=== PATIENT | male | born 1950 | race African-American/Black ===

== ENCOUNTER 2018-10-10 10:22 | Inpatient (IN) | payer MEDICARE, MEDICAID ==
[~2018-10-10] VITALS: Ht 170.2 cm; Wt 83.6 kg
[~2018-10-10 10:22] MED LIST: ASPI-1159 PO; BUDE6HFA INH; CARV25TA47 PO; HYDR-4135 PO
[2018-10-10 11:00] LABS: BASOPHILS % 0.8 % (0.0-2.0); EOSINOPHILS % 1.1 % (0.0-5.0); HEMATOCRIT. 48.5 % (42.0-52.0); LYMPHOCYTES % 13.2 % (20.0-50.0); MEAN CORPUSCULAR HEMOGLOBIN 30.3 pg (28.0-32.0); MEAN CORPUSCULAR VOLUME 91.7 fL (80.0-94.0); MONOCYTES % 8.1 % (2.0-8.0); NEUTROPHILS % 76.8 % (40.0-76.0); PLATELET 199 x1000/uL (130-400); RED BLOOD CELL COUNT 5.29 mill/uL (4.7-6.1); RED CELL DISTRIBUTION WIDTH 18.2 % (11.6-14.6)
[2018-10-10] MEDS ORDERED: ASPIRIN 325MG EC TABLET PO ONE (11:00)
[2018-10-10 11:01] LABS: CHLORIDE 110 mEq/L (98-107)
[2018-10-10 14:30] VITALS: BP 181/101
[2018-10-10] MEDS ORDERED: ENOXAPARIN 60MG/0.6ML SYR SUBCUT NR (14:30)
[2018-10-10] MEDS ORDERED: IPRATROPIUM/ALBUTEROL 0.5-3(2.5)MG/3ML NEB HHN PRN (15:30)
[2018-10-10] MEDS ORDERED: CLONIDINE 0.1MG TABLET PO PRN (15:30)
[2018-10-10 16:00] VITALS: BP 158/97
[2018-10-10] MEDS ORDERED: ONDANSETRON HCL 4MG/2ML INJ IV PRN (17:45)
[2018-10-10] MEDS ORDERED: MAGNESIUM/ALUMINUM HYDROXIDE/SIMETHICONE 30ML UDC PO PRN (17:45)
[2018-10-10] MEDS ORDERED: SODIUM CHLORIDE 0.45% 1,000 ML IV SCH (17:45)
[2018-10-10] MEDS ORDERED: HYDROCODONE/ACETAMINOPHEN 5/325MG TABLET PO PRN (17:45)
[2018-10-10] MEDS ORDERED: BUDESONIDE 0.5MG/2ML NEB HHN SCH (18:00)
[2018-10-10] MEDS ORDERED: FUROSEMIDE 40MG/4ML VIAL IVP NR (18:15)
[2018-10-10 19:03] LABS: CLARITY URINE CLEAR (CLEAR); COLOR URINE YELLOW (YELLOW); KETONES URINE NEGATIVE (NEGATIVE); LEUKOCYTE ESTERASE URINE NEGATIVE (NEGATIVE); NITRITE URINE NEGATIVE (NEGATIVE); OCCULT BLOOD URINE NEGATIVE (NEGATIVE); PROTEIN URINE TRACE (NEGATIVE); SPECIFIC GRAVITY URINE 1.009 (1.005-1.030); UROBILINOGEN URINE 0.2 E.U./dL (0.2-1.0)
[2018-10-10 19:23] LABS: *AMPHETAMINES SCREEN URINE NEGATIVE (NEGATIVE); *BARBITURATES SCREEN URINE NEGATIVE (NEGATIVE); *BENZODIAZEPINES SCREEN URINE NEGATIVE (NEGATIVE); *COCAINE SCREEN URINE NEGATIVE (NEGATIVE)
[2018-10-10 19:24] LABS: CANNABINOID URINE SCREEN NEGATIVE (NEGATIVE); METHADONE URINE SCREEN NEGATIVE (NEGATIVE); OPIATES URINE SCREEN NEGATIVE (NEGATIVE); PHENCYCLIDINE URINE SCREEN NEGATIVE (NEGATIVE)
[2018-10-10 20:00] VITALS: BP 151/92
[2018-10-10] MEDS: CARVEDILOL 12.5MG TABLET PO SCH (21:00)
[2018-10-10] MEDS ORDERED: ZOLPIDEM TARTRATE 5MG TABLET PO PRN (21:00)
[2018-10-10] MEDS: HYDRALAZINE HCL 50MG TABLET PO SCH (21:39)
[2018-10-10] MEDS: ATORVASTATIN CALCIUM 40MG TABLET PO SCH (21:43)
[2018-10-11] VITALS: BP 143/79
[2018-10-11 04:00] VITALS: BP 140/86
[2018-10-11 06:21] LABS: BASOPHILS % 0.9 % (0.0-2.0); EOSINOPHILS % 2.3 % (0.0-5.0); HEMATOCRIT. 44.5 % (42.0-52.0); LYMPHOCYTES % 19.1 % (20.0-50.0); MEAN CORPUSCULAR HEMOGLOBIN 30.6 pg (28.0-32.0); MEAN CORPUSCULAR VOLUME 90.8 fL (80.0-94.0); MEAN PLATELET VOLUME 9.5 fl (7.4-10.4); MONOCYTES % 9.6 % (2.0-8.0); NEUTROPHILS % 68.1 % (40.0-76.0); PLATELET 169 x1000/uL (130-400); RED CELL DISTRIBUTION WIDTH 18.5 % (11.6-14.6)
[2018-10-11] MEDS: OMEPRAZOLE 20MG CAPSULE EXTENDED RELEASE PO SCH (06:43)
[2018-10-11] MEDS: HYDRALAZINE HCL 50MG TABLET PO SCH ×3 (06:44→21:32)
[2018-10-11 07:26] LABS: PHOSPHORUS 3.3 mg/dL (2.5-4.9)
[2018-10-11 08:00] VITALS: BP 143/82
[2018-10-11] MEDS: ASPIRIN 81MG EC TABLET PO SCH (09:18)
[2018-10-11] MEDS: CARVEDILOL 12.5MG TABLET PO SCH (09:18)
[2018-10-11] MEDS ORDERED: FUROSEMIDE 40MG/4ML VIAL IVP NR (11:30)
[2018-10-11 12:00] VITALS: BP 140/80
[2018-10-11] MEDS: AMLODIPINE 5MG TABLET PO SCH ×2 (14:20→21:31)
[2018-10-11 16:00] VITALS: BP 157/88
[2018-10-11 20:00] VITALS: BP 151/73
[2018-10-11] MEDS: CARVEDILOL 25MG TABLET PO SCH (21:31)
[2018-10-11] MEDS: ATORVASTATIN CALCIUM 40MG TABLET PO SCH (21:31)
[2018-10-12] VITALS (7 sets, daily range): BP systolic 127–152; BP diastolic 67–86
[2018-10-12] MEDS: IPRATROPIUM/ALBUTEROL 0.5-3(2.5)MG/3ML NEB HHN SCH ×4 (01:56→21:44)
[2018-10-12] MEDS: OMEPRAZOLE 20MG CAPSULE EXTENDED RELEASE PO SCH (05:54)
[2018-10-12] MEDS: HYDRALAZINE HCL 50MG TABLET PO SCH ×3 (05:54→21:55)
[2018-10-12 06:30] LABS: BASOPHILS % 0.9 % (0.0-2.0); EOSINOPHILS % 2.7 % (0.0-5.0); HEMATOCRIT. 45.4 % (42.0-52.0); HEMOGLOBIN. 15.4 g/dL (14.0-18.0); LYMPHOCYTES % 21.5 % (20.0-50.0); MEAN CORPUSCULAR HEMOGLOBIN 30.9 pg (28.0-32.0); MEAN CORPUSCULAR VOLUME 91.3 fL (80.0-94.0); MEAN PLATELET VOLUME 9.8 fl (7.4-10.4); MONOCYTES % 9.4 % (2.0-8.0); NEUTROPHILS % 65.5 % (40.0-76.0); PLATELET 187 x1000/uL (130-400); RED BLOOD CELL COUNT 4.98 mill/uL (4.7-6.1); RED CELL DISTRIBUTION WIDTH 18.3 % (11.6-14.6)
[2018-10-12] MEDS: BUDESONIDE 0.5MG/2ML NEB HHN SCH ×2 (08:00→21:45)
[2018-10-12] MEDS: ASPIRIN 81MG EC TABLET PO SCH (08:18)
[2018-10-12] MEDS: CARVEDILOL 25MG TABLET PO SCH ×2 (08:20→21:55)
[2018-10-12] MEDS: AMLODIPINE 5MG TABLET PO SCH ×2 (08:20→21:56)
[2018-10-12] MEDS: NICOTINE 14MG PATCH TD SCH (08:20)
[2018-10-12] MEDS ORDERED: FUROSEMIDE 40MG TABLET PO SCH (11:15)
[2018-10-12 12:35] LABS: PARTIAL THROMBOPLASTIN TIME 31.4 sec (23.4-31.0); PROTHROMBIN TIME 10.7 sec (9.6-11.0)
[2018-10-12] MEDS ORDERED: FUROSEMIDE 20MG/2ML VIAL IVP NR (14:15)
[2018-10-12 15:10] LABS: ANTI-NUCLEAR ANTIBODIES DIRECT Negative (Negative)
[2018-10-12] MEDS: ATORVASTATIN CALCIUM 40MG TABLET PO SCH (21:55)
[2018-10-13] VITALS: BP 115/70
[2018-10-13] MEDS: IPRATROPIUM/ALBUTEROL 0.5-3(2.5)MG/3ML NEB HHN SCH ×4 (01:08→21:39)
[2018-10-13 04:00] VITALS: BP 125/82
[2018-10-13] MEDS: OMEPRAZOLE 20MG CAPSULE EXTENDED RELEASE PO SCH (05:54)
[2018-10-13] MEDS: HYDRALAZINE HCL 50MG TABLET PO SCH ×3 (05:55→21:04)
[2018-10-13 06:18] LABS: BASOPHILS % 1.1 % (0.0-2.0); HEMOGLOBIN. 16.2 g/dL (14.0-18.0); MEAN CORPUSCULAR HEMOGLOBIN 30.8 pg (28.0-32.0); MEAN CORPUSCULAR VOLUME 89.7 fL (80.0-94.0); MEAN PLATELET VOLUME 9.4 fl (7.4-10.4); MONOCYTES % 9.3 % (2.0-8.0); NEUTROPHILS % 67.6 % (40.0-76.0); PLATELET 198 x1000/uL (130-400); RED BLOOD CELL COUNT 5.24 mill/uL (4.7-6.1); RED CELL DISTRIBUTION WIDTH 18.2 % (11.6-14.6)
[2018-10-13] MEDS ORDERED: PROPOFOL 200MG/20ML VIAL IV ONE (07:23)
[2018-10-13] MEDS ORDERED: MIDAZOLAM HCL 2 MG/2 ML VIAL ONE (07:23)
[2018-10-13] MEDS ORDERED: KETAMINE HCL 50 MG/ML 10ML ONE (07:24)
[2018-10-13] MEDS ORDERED: IOPAMIDOL 20 ML VIAL IT ONE (07:26)
[2018-10-13] MEDS ORDERED: FENTANYL CITRATE/PF 50MCG/ML 2ML VIAL ONE (07:31)
[2018-10-13] MEDS ORDERED: ONDANSETRON HCL 4MG/2ML INJ IV PRN (08:15)
[2018-10-13] MEDS ORDERED: LABETALOL 5MG/ML SYR 20 MG/4 ML SYRINGE IV PRN (08:15)
[2018-10-13] MEDS ORDERED: ACETAMINOPHEN 500MG TABLET PO PRN (08:15)
[2018-10-13] MEDS: BUDESONIDE 0.5MG/2ML NEB HHN SCH ×2 (08:20→21:39)
[2018-10-13 08:21] LABS: COMPLEMENT C3 142 mg/dL (82-167)
[2018-10-13 09:00] VITALS: BP 154/86
[2018-10-13] MEDS: FAMOTIDINE 20MG TABLET PO SCH (09:36)
[2018-10-13] MEDS: NICOTINE 14MG PATCH TD SCH (09:36)
[2018-10-13] MEDS: ACETAMINOPHEN 325MG TABLET PO PRN ×2 (09:37→15:40)
[2018-10-13] MEDS: AMLODIPINE 5MG TABLET PO SCH ×2 (09:37→21:05)
[2018-10-13] MEDS: CARVEDILOL 25MG TABLET PO SCH ×2 (09:45→21:04)
[2018-10-13 12:00] VITALS: BP 140/86
[2018-10-13 16:00] VITALS: BP 153/80
[2018-10-13 20:00] VITALS: BP 146/76
[2018-10-13] MEDS: ATORVASTATIN CALCIUM 40MG TABLET PO SCH (21:05)
[2018-10-14] VITALS: BP 134/81
[2018-10-14] MEDS: IPRATROPIUM/ALBUTEROL 0.5-3(2.5)MG/3ML NEB HHN SCH ×3 (01:16→12:42)
[2018-10-14 04:00] VITALS: BP 133/73
[2018-10-14] MEDS: OMEPRAZOLE 20MG CAPSULE EXTENDED RELEASE PO SCH (06:00)
[2018-10-14] MEDS: HYDRALAZINE HCL 50MG TABLET PO SCH ×2 (06:01→14:02)
[2018-10-14 06:07] LABS: BASOPHILS % 0.8 % (0.0-2.0); EOSINOPHILS % 2.2 % (0.0-5.0); HEMATOCRIT. 50.3 % (42.0-52.0); HEMOGLOBIN. 17.1 g/dL (14.0-18.0); LYMPHOCYTES % 17.7 % (20.0-50.0); MEAN CORPUSCULAR HEMOGLOBIN 30.7 pg (28.0-32.0); MEAN CORPUSCULAR VOLUME 90.5 fL (80.0-94.0); MEAN PLATELET VOLUME 9.1 fl (7.4-10.4); MONOCYTES % 8.8 % (2.0-8.0); NEUTROPHILS % 70.5 % (40.0-76.0); PLATELET 218 x1000/uL (130-400); RED BLOOD CELL COUNT 5.55 mill/uL (4.7-6.1)
[2018-10-14 08:00] VITALS: BP 162/93
[2018-10-14] MEDS: AMLODIPINE 5MG TABLET PO SCH (08:34)
[2018-10-14] MEDS: CARVEDILOL 25MG TABLET PO SCH (08:34)
[2018-10-14] MEDS: NICOTINE 14MG PATCH TD SCH (08:34)
[2018-10-14] MEDS: FAMOTIDINE 20MG TABLET PO SCH (08:34)
[2018-10-14 12:00] VITALS: BP 161/91
[2018-10-14 15:51] VITALS: BP 148/90
== END 2018-10-14 16:50 | disposition home or self-care (01) | DRG 659 ==
LOC: ER 10:22 → 5WST 12:41 → EDBEDREQ 12:44 → EDBEDREQTM 12:44 → ENRESERV 12:59
PROVIDERS: ADMIT Family Medicine Adult Medicine; ATTEND Specialist
PROC: 0T778DZ Dilation of Left Ureter with Intraluminal Device, Via Natural or Artificial Opening Endoscopic (ICD-10-PCS; principal; 2018-10-13)
DX: N13.30 Unspecified hydronephrosis (principal); J96.00 Acute respiratory failure, unspecified whether with hypoxia or hypercapnia; I50.43 Acute on chronic combined systolic (congestive) and diastolic (congestive) heart failure; I13.0 Hypertensive heart and chronic kidney disease with heart failure and stage 1 through stage 4 chronic kidney disease, or unspecified chronic kidney disease; R17 Unspecified jaundice; N28.0 Ischemia and infarction of kidney; N17.9 Acute kidney failure, unspecified; J06.9 Acute upper respiratory infection, unspecified; J44.9 Chronic obstructive pulmonary disease, unspecified; N18.9 Chronic kidney disease, unspecified; D64.9 Anemia, unspecified; E11.22 Type 2 diabetes mellitus with diabetic chronic kidney disease; E78.5 Hyperlipidemia, unspecified; F17.210 Nicotine dependence, cigarettes, uncomplicated; I25.10 Atherosclerotic heart disease of native coronary artery without angina pectoris; I25.5 Ischemic cardiomyopathy; I25.119 Atherosclerotic heart disease of native coronary artery with unspecified angina pectoris; I27.20 Pulmonary hypertension, unspecified; Z96.659 Presence of unspecified artificial knee joint; I34.0 Nonrheumatic mitral (valve) insufficiency; N26.1 Atrophy of kidney (terminal); N40.0 Benign prostatic hyperplasia without lower urinary tract symptoms; Z82.49 Family history of ischemic heart disease and other diseases of the circulatory system; Z86.79 Personal history of other diseases of the circulatory system; Z95.1 Presence of aortocoronary bypass graft; I25.2 Old myocardial infarction; Z79.899 Other long term (current) drug therapy; Z71.6 Tobacco abuse counseling
CPT/HCPCS: 36415; 71045; 71250; 74430; 76770; 78582; 80048; 80061; 80305; 83036; 83735; 83880; 84100; 84443; 84484; 85379; 86038; 86160; 93005; 93306; 93970; 94618; 94640; 99285; A9558; C2617; J1650; J1940; J2250; J2704; J3010; J3490; J7620; J7626; Q9966

== ENCOUNTER 2019-02-21 10:35 | Inpatient (IN) | payer MEDICARE, MEDICAID ==
[~2019-02-21] VITALS: Ht 167.1 cm; Wt 85.0 kg
[2019-02-21] VITALS (24 sets, daily range): BP systolic 128–174; BP diastolic 54–109
[~2019-02-21 10:35] MED LIST changes: -ASPI-1159 PO; +ASPI-1393 PO
[2019-02-21] MEDS ORDERED: THROMBIN (BOVINE) 5000 UNITS/VIAL TOP ONE (11:58)
[2019-02-21 12:16] LABS: BASOPHILS % 0.7 % (0.0-2.0); EOSINOPHILS % 2.2 % (0.0-5.0); HEMATOCRIT. 53.4 % (42.0-52.0); HEMOGLOBIN. 17.8 g/dL (14.0-18.0); LYMPHOCYTES % 19.7 % (20.0-50.0); MEAN CORPUSCULAR HEMOGLOBIN 31.6 pg (28.0-32.0); MEAN CORPUSCULAR VOLUME 94.6 fL (80.0-94.0); MONOCYTES % 7.8 % (2.0-8.0); NEUTROPHILS % 69.6 % (40.0-76.0); PLATELET 182 x1000/uL (130-400); RED BLOOD CELL COUNT 5.65 mill/uL (4.7-6.1); RED CELL DISTRIBUTION WIDTH 16.7 % (11.6-14.6)
[2019-02-21] MEDS ORDERED: AMLO5TAB88 MT (12:20)
[2019-02-21] MEDS ORDERED: ATOR40TA70 MT (12:20)
[2019-02-21] MEDS ORDERED: LOSA50TA41 MT (12:20)
[2019-02-21 12:26] LABS: INR 1.1; PROTHROMBIN TIME 10.9 sec (9.6-11.0)
[2019-02-21] MEDS ORDERED: PROPOFOL 10MG/ML 100ML 200 ML IV ONE (12:37)
[2019-02-21] MEDS ORDERED: IOHEXOL-300 100 ML BOTTLE ONE (12:41)
[2019-02-21] MEDS ORDERED: HEPARIN 1,000 UNITS PREMIX 1,500 ML IV ONE (12:42)
[2019-02-21] MEDS ORDERED: LIDOCAINE HCL 1% 20ML VIAL (Pyxis) INJ ONE (12:42)
[2019-02-21] MEDS ORDERED: IODIXANOL 320MG/ML 100 ML BOTTLE IV ONE (12:42)
[2019-02-21] MEDS ORDERED: FENTANYL CITRATE/PF 50MCG/ML 2ML VIAL ONE (12:50)
[2019-02-21] MEDS ORDERED: MIDAZOLAM HCL 2 MG/2 ML VIAL ONE ×2 (12:51→17:45)
[2019-02-21] MEDS ORDERED: IODIXANOL 320MG/ML 200ML BOTTLE ONE (13:13)
[2019-02-21] MEDS ORDERED: GLYCOPYRROLATE 0.2 MG/ML 2ML VIAL ONE ×2 (13:28→17:55)
[2019-02-21] MEDS ORDERED: KETAMINE HCL 50 MG/ML 10ML ONE (13:42)
[2019-02-21] MEDS ORDERED: HYDRALAZINE 20MG/ML VIAL ONE (14:44)
[2019-02-21] MEDS ORDERED: HEPARIN 1000 UNITS/ML 10ML ONE ×2 (14:44→15:09)
[2019-02-21] MEDS ORDERED: ROCURONIUM BROMIDE 10MG/ML VIAL 5ML IV ONE ×2 (15:56→16:47)
[2019-02-21] MEDS ORDERED: MEPERIDINE HCL/PF 25MG/ML CPJ IV PRN ×2 (16:15)
[2019-02-21] MEDS ORDERED: LABETALOL 5MG/ML SYR 20 MG/4 ML SYRINGE IV PRN (16:15)
[2019-02-21] MEDS ORDERED: ONDANSETRON HCL 4MG/2ML INJ IV PRN ×3 (16:15→18:15)
[2019-02-21] MEDS ORDERED: LABETALOL HCL 5MG/ML VIAL 20ML IV PRN (16:15)
[2019-02-21] MEDS ORDERED: HYDROMORPHONE HCL/PF 2MG/ML CPJ IV PRN ×2 (16:15)
[2019-02-21] MEDS ORDERED: PROTAMINE SULFATE 10MG/ML VIAL 5ML IV ONE (17:39)
[2019-02-21] MEDS ORDERED: NEOSTIGMINE METHYLSULFATE 1MG/ML 10 ML VIAL ONE (17:55)
[2019-02-21] MEDS ORDERED: ATROPINE SULFATE 1MG/10ML SYR IV PRN (18:15)
[2019-02-21 18:48] LABS: BG BASE EXCESS -7.2 mmol/L (-2.0-2.0); BG CARBOXYHEMOGLOBIN 3.7 % (0.5-1.5); BG DEOXYHEMOGLOBIN 4.4 % (0.0-5.0); BG FRACTION INSPIRED OXYGEN 100; BG HCO3 ACT 19.8 mmol/L (22.0-26.0); BG METHEMOGLOBIN 0.4 % (0.0-1.5); BG OXYGEN SATURATION 95.4 % (92.0-98.5); BG OXYHEMOGLOBIN 91.5 % (94.0-97.0); BG PH 7.261 (7.350-7.450); BG SAMPLE SITE RIGHT RADIAL; BG TIDAL VOLUME(mL) 500 mL; BG TOTAL HEMOGLOBIN 17.2 g/dL (12.0-18.0); BG VENT MODE VENT - A/C; BG VENT RATE 14 set
[2019-02-21] MEDS: LORAZEPAM 2MG/ML CPJ IV PRN (19:11)
[2019-02-21] MEDS ORDERED: SODIUM BICARBONATE 8.4% 1 MEQ/ML 50ML SYR IV SCH (19:15)
[2019-02-21] MEDS ORDERED: IPRATROPIUM/ALBUTEROL 0.5-3(2.5)MG/3ML NEB HHN PRN (19:15)
[2019-02-21] MEDS: IPRATROPIUM/ALBUTEROL 0.5-3(2.5)MG/3ML NEB HHN SCH (20:03)
[2019-02-21] MEDS: SODIUM CHLORIDE 0.9% 1,000 ML IV SCH (20:50)
[2019-02-21] MEDS: FENTANYL CITRATE/PF 500 MCG in SODIUM CHLORIDE 0.9% 40 ML IV PRN ×2 (20:51→23:35)
[2019-02-22] VITALS (46 sets, daily range): BP systolic 84–190; BP diastolic 60–102
[2019-02-22] MEDS: IPRATROPIUM/ALBUTEROL 0.5-3(2.5)MG/3ML NEB HHN SCH ×4 (01:48→20:33)
[2019-02-22] MEDS: SODIUM CHLORIDE 0.9% 1,000 ML IV SCH (04:44)
[2019-02-22] MEDS: FENTANYL CITRATE/PF 500 MCG in SODIUM CHLORIDE 0.9% 40 ML IV PRN (04:45)
[2019-02-22 05:41] LABS: BASOPHILS % 0.4 % (0.0-2.0); EOSINOPHILS % 0.2 % (0.0-5.0); HEMATOCRIT. 46.9 % (42.0-52.0); HEMOGLOBIN. 15.7 g/dL (14.0-18.0); LYMPHOCYTES % 8.9 % (20.0-50.0); MEAN CORPUSCULAR HEMOGLOBIN 31.8 pg (28.0-32.0); MEAN CORPUSCULAR VOLUME 94.9 fL (80.0-94.0); MEAN PLATELET VOLUME 8.7 fl (7.4-10.4); MONOCYTES % 8.5 % (2.0-8.0); PLATELET 139 x1000/uL (130-400); RED BLOOD CELL COUNT 4.94 mill/uL (4.7-6.1); RED CELL DISTRIBUTION WIDTH 16.8 % (11.6-14.6)
[2019-02-22 05:48] LABS: CHLORIDE 112 mEq/L (98-107)
[2019-02-22] MEDS ORDERED: HYDRALAZINE 20MG/ML VIAL IV NR (07:15)
[2019-02-22] MEDS ORDERED: ASPIRIN 325MG TABLET PO SCH (09:00)
[2019-02-22] MEDS ORDERED: LABETALOL 5MG/ML SYR 20 MG/4 ML SYRINGE IV PRN (09:45)
[2019-02-22] MEDS: LORAZEPAM 2MG/ML CPJ IV PRN (10:02)
[2019-02-22 10:27] LABS: BG BASE EXCESS -4.1 mmol/L (-2.0-2.0); BG CARBOXYHEMOGLOBIN 0.7 % (0.5-1.5); BG DEOXYHEMOGLOBIN 1.9 % (0.0-5.0); BG FRACTION INSPIRED OXYGEN 60; BG HCO3 ACT 20.3 mmol/L (22.0-26.0); BG METHEMOGLOBIN 0.4 % (0.0-1.5); BG OXYGEN SATURATION 98.1 % (92.0-98.5); BG PCO2 35.7 mmHg (35.0-45.0); BG PH 7.373 (7.350-7.450); BG PO2 109.7 mmHg (75.0-100.0); BG SAMPLE SITE RIGHT RADIAL; BG TIDAL VOLUME(mL) 500 mL; BG TOTAL HEMOGLOBIN 16.5 g/dL (12.0-18.0); BG VENT MODE VENT - A/C; BG VENT RATE 18 set
[2019-02-22] MEDS ORDERED: MAGNESIUM 2 G PREMIX 50 ML IV NR (10:45)
[2019-02-22] MEDS ORDERED: HYDRALAZINE 20MG/ML VIAL IV SCH (12:00)
[2019-02-22] MEDS ORDERED: MORPHINE SULFATE 2 MG/ML CPJ (NOT FOR IM USE) IV PRN (12:45)
[2019-02-22] MEDS: MORPHINE SULFATE 2 MG/ML CPJ (NOT FOR IM USE) IV PRN ×2 (12:59→20:02)
[2019-02-22 13:19] LABS: BG CARBOXYHEMOGLOBIN 0.7 % (0.5-1.5); BG DEOXYHEMOGLOBIN 4.6 % (0.0-5.0); BG FRACTION INSPIRED OXYGEN 40; BG HCO3 ACT 20.1 mmol/L (22.0-26.0); BG METHEMOGLOBIN 0.3 % (0.0-1.5); BG OXYGEN SATURATION 95.4 % (92.0-98.5); BG OXYHEMOGLOBIN 94.4 % (94.0-97.0); BG PCO2 31.2 mmHg (35.0-45.0); BG PH 7.426 (7.350-7.450); BG PO2 74.9 mmHg (75.0-100.0); BG PRESSURE SUPPORT 8; BG SAMPLE SITE RIGHT RADIAL; BG TOTAL HEMOGLOBIN 16.6 g/dL (12.0-18.0); BG VENT MODE VENT - CPAP
[2019-02-22] MEDS ORDERED: CLOPIDOGREL 75MG TABLET PO ONE (14:00)
[2019-02-22] MEDS ORDERED: ASPIRIN 81MG EC TABLET PO SCH (14:00)
[2019-02-22] MEDS: ASPIRIN 81MG TABLET PO SCH (14:22)
[2019-02-22] MEDS: NITROGLYCERIN OINT 1GM/INCH UDPKT TD SCH ×2 (15:52→23:35)
[2019-02-22] MEDS: DEXT 5%/0.45% NACL 1000ML 1,000 ML IV SCH (15:52)
[2019-02-22] MEDS: HYDRALAZINE 20MG/ML VIAL IV SCH ×2 (17:07→23:35)
[2019-02-22] MEDS: NICARDIPINE 50 MG in SODIUM CHLORIDE 0.9% 230 ML IV PRN (17:32)
[2019-02-22] MEDS ORDERED: MAGNESIUM/ALUMINUM HYDROXIDE/SIMETHICONE 30ML UDC PO PRN (20:00)
[2019-02-23] VITALS (72 sets, daily range): BP systolic 118–166; BP diastolic 42–125
[2019-02-23] MEDS: MORPHINE SULFATE 2 MG/ML CPJ (NOT FOR IM USE) IV PRN ×2 (00:05→20:05)
[2019-02-23] MEDS: NICARDIPINE 50 MG in SODIUM CHLORIDE 0.9% 230 ML IV PRN ×3 (00:11→18:08)
[2019-02-23] MEDS: IPRATROPIUM/ALBUTEROL 0.5-3(2.5)MG/3ML NEB HHN SCH ×4 (01:43→20:40)
[2019-02-23 04:24] LABS: CHLORIDE 109 mEq/L (98-107)
[2019-02-23 04:26] LABS: HEMATOCRIT. 45.6 % (42.0-52.0); HEMOGLOBIN. 15.4 g/dL (14.0-18.0); MEAN CORPUSCULAR HEMOGLOBIN 31.6 pg (28.0-32.0); MEAN CORPUSCULAR VOLUME 93.8 fL (80.0-94.0); MEAN PLATELET VOLUME 8.7 fl (7.4-10.4); PLATELET 108 x1000/uL (130-400); RED BLOOD CELL COUNT 4.87 mill/uL (4.7-6.1); RED CELL DISTRIBUTION WIDTH 16.7 % (11.6-14.6)
[2019-02-23 04:31] LABS: LDL CHOLESTEROL 69 mg/dL (5-100)
[2019-02-23 04:32] LABS: HDL CHOLESTEROL 53 mg/dL (40-59)
[2019-02-23] MEDS: HYDRALAZINE 20MG/ML VIAL IV SCH ×3 (05:11→17:46)
[2019-02-23] MEDS: NITROGLYCERIN OINT 1GM/INCH UDPKT TD SCH ×3 (05:11→22:04)
[2019-02-23 07:28] LABS: PLATELET ESTIMATE DECREASED
[2019-02-23] MEDS: SIMETHICONE 80MG TABLET CHEW PO PRN ×2 (07:45→15:40)
[2019-02-23] MEDS: DEXT 5%/0.45% NACL 1000ML 1,000 ML IV SCH (07:45)
[2019-02-23] MEDS: ACETAMINOPHEN 325MG TABLET PO PRN ×2 (07:46→15:40)
[2019-02-23] MEDS: ASPIRIN 81MG TABLET PO SCH (08:01)
[2019-02-23] MEDS ORDERED: CLOPIDOGREL 75MG TABLET PO SCH (09:00)
[2019-02-23] MEDS ORDERED: METHYLPREDNISOLONE SOD SUCC 125 MG/2 ML VIAL IV NR (10:00)
[2019-02-23] MEDS: DEXT 5%/0.45% NACL KCL 20MEQ/L 1,000 ML IV SCH (11:43)
[2019-02-23] MEDS: METOCLOPRAMIDE HCL 10MG/2ML VIAL IV SCH ×2 (12:21→17:46)
[2019-02-23 12:26] LABS: CLARITY URINE CLOUDY (CLEAR); COLOR URINE ORANGE (YELLOW); KETONES URINE NEGATIVE (NEGATIVE); LEUKOCYTE ESTERASE URINE 1+ (NEGATIVE); NITRITE URINE NEGATIVE (NEGATIVE); OCCULT BLOOD URINE 3+ (NEGATIVE); PH URINE 5.5 (4.5-8.0); PROTEIN URINE 2+ (NEGATIVE); SPECIFIC GRAVITY URINE 1.021 (1.005-1.030); UROBILINOGEN URINE 0.2 E.U./dL (0.2-1.0)
[2019-02-23] MEDS ORDERED: PIPERACILLIN/TAZOBACTAM 3.375 G in DEXT 5% WATER 100 ML IV SCH (12:30)
[2019-02-23] MEDS ORDERED: PIPERACILLIN/TAZOBACTAM 2.25 G in DEXTROSE 5% WATER 50 ML IV SCH (14:00)
[2019-02-23] MEDS: PANTOPRAZOLE SODIUM 40 MG/VIAL IV SCH (14:10)
[2019-02-23] MEDS: METRONIDAZOLE 500 MG PREMIX 100 ML IV SCH ×2 (14:11→22:01)
[2019-02-23] MEDS: BUDESONIDE 0.5MG/2ML NEB HHN SCH ×2 (14:59→20:40)
[2019-02-23] MEDS: METHYLPREDNISOLONE SOD SUCC 40 MG/ML VIAL IV SCH (17:46)
[2019-02-23] MEDS: LORAZEPAM 2MG/ML CPJ IV PRN (20:06)
[2019-02-23] MEDS: CEFEPIME 1,000 MG in DEXTROSE 5% WATER 50 ML IV SCH (20:36)
[2019-02-24] VITALS (82 sets, daily range): BP systolic 125–199; BP diastolic 43–109
[2019-02-24] MEDS: HYDRALAZINE 20MG/ML VIAL IV SCH ×4 (00:11→17:15)
[2019-02-24] MEDS: METOCLOPRAMIDE HCL 10MG/2ML VIAL IV SCH ×5 (00:12→23:05)
[2019-02-24] MEDS: MORPHINE SULFATE 2 MG/ML CPJ (NOT FOR IM USE) IV PRN (01:03)
[2019-02-24] MEDS: IPRATROPIUM/ALBUTEROL 0.5-3(2.5)MG/3ML NEB HHN SCH ×4 (02:34→20:16)
[2019-02-24] MEDS: METRONIDAZOLE 500 MG PREMIX 100 ML IV SCH ×3 (05:34→23:05)
[2019-02-24] MEDS: NITROGLYCERIN OINT 1GM/INCH UDPKT TD SCH ×3 (05:35→23:05)
[2019-02-24] MEDS: NICARDIPINE 50 MG in SODIUM CHLORIDE 0.9% 230 ML IV PRN ×2 (05:36→16:45)
[2019-02-24 06:18] LABS: HEMATOCRIT. 44.5 % (42.0-52.0); HEMOGLOBIN. 14.9 g/dL (14.0-18.0); MEAN CORPUSCULAR HEMOGLOBIN 31.6 pg (28.0-32.0); MEAN CORPUSCULAR VOLUME 94.3 fL (80.0-94.0); MEAN PLATELET VOLUME 9.3 fl (7.4-10.4); PLATELET 124 x1000/uL (130-400); RED BLOOD CELL COUNT 4.72 mill/uL (4.7-6.1); RED CELL DISTRIBUTION WIDTH 16.2 % (11.6-14.6)
[2019-02-24 06:23] LABS: CHLORIDE 111 mEq/L (98-107)
[2019-02-24] MEDS: DEXT 5%/0.45% NACL KCL 20MEQ/L 1,000 ML IV SCH (07:18)
[2019-02-24] MEDS: BUDESONIDE 0.5MG/2ML NEB HHN SCH ×2 (07:49→20:16)
[2019-02-24] MEDS: PANTOPRAZOLE SODIUM 40 MG/VIAL IV SCH (08:49)
[2019-02-24] MEDS: ASPIRIN 81MG TABLET PO SCH (08:49)
[2019-02-24] MEDS: CEFEPIME 1,000 MG in DEXTROSE 5% WATER 50 ML IV SCH ×2 (08:49→21:51)
[2019-02-24] MEDS: METHYLPREDNISOLONE SOD SUCC 40 MG/ML VIAL IV SCH ×2 (08:49→17:15)
[2019-02-24] MEDS ORDERED: POTASSIUM CHLORIDE 20MEQ TABLET SR PO NR (11:00)
[2019-02-24 11:28] LABS: PLATELET ESTIMATE NORMAL
[2019-02-25] VITALS (89 sets, daily range): BP systolic 121–168; BP diastolic 39–132
[2019-02-25] MEDS: HYDRALAZINE 20MG/ML VIAL IV SCH ×4 (00:36→17:24)
[2019-02-25] MEDS: DEXT 5%/0.45% NACL KCL 20MEQ/L 1,000 ML IV SCH ×2 (00:36→23:19)
[2019-02-25] MEDS: NICARDIPINE 50 MG in SODIUM CHLORIDE 0.9% 230 ML IV PRN ×3 (00:36→21:10)
[2019-02-25] MEDS: IPRATROPIUM/ALBUTEROL 0.5-3(2.5)MG/3ML NEB HHN SCH ×4 (01:55→20:41)
[2019-02-25 04:47] LABS: HEMATOCRIT. 44.9 % (42.0-52.0); HEMOGLOBIN. 15.1 g/dL (14.0-18.0); MEAN CORPUSCULAR HEMOGLOBIN 31.7 pg (28.0-32.0); MEAN CORPUSCULAR VOLUME 94.6 fL (80.0-94.0); MEAN PLATELET VOLUME 9.1 fl (7.4-10.4); PLATELET 143 x1000/uL (130-400); RED BLOOD CELL COUNT 4.75 mill/uL (4.7-6.1); RED CELL DISTRIBUTION WIDTH 16.6 % (11.6-14.6)
[2019-02-25 04:54] LABS: CHLORIDE 115 mEq/L (98-107)
[2019-02-25] MEDS: METRONIDAZOLE 500 MG PREMIX 100 ML IV SCH ×3 (05:50→21:07)
[2019-02-25] MEDS: NITROGLYCERIN OINT 1GM/INCH UDPKT TD SCH ×3 (05:51→21:26)
[2019-02-25] MEDS: METOCLOPRAMIDE HCL 10MG/2ML VIAL IV SCH ×3 (05:51→17:24)
[2019-02-25] MEDS ORDERED: POTASSIUM CHLORIDE 20MEQ TABLET SR PO SCH (08:30)
[2019-02-25] MEDS: BUDESONIDE 0.5MG/2ML NEB HHN SCH ×2 (08:53→20:40)
[2019-02-25] MEDS: CEFEPIME 1,000 MG in DEXTROSE 5% WATER 50 ML IV SCH ×2 (09:20→20:41)
[2019-02-25] MEDS: ASPIRIN 81MG TABLET PO SCH (09:21)
[2019-02-25] MEDS: PANTOPRAZOLE SODIUM 40 MG/VIAL IV SCH (09:21)
[2019-02-25] MEDS: METHYLPREDNISOLONE SOD SUCC 40 MG/ML VIAL IV SCH ×2 (09:21→17:24)
[2019-02-25 11:29] LABS: BG BASE EXCESS -2.2 mmol/L (-2.0-2.0); BG CARBOXYHEMOGLOBIN 0.7 % (0.5-1.5); BG DEOXYHEMOGLOBIN 4.8 % (0.0-5.0); BG FRACTION INSPIRED OXYGEN 70; BG HCO3 ACT 20.8 mmol/L (22.0-26.0); BG METHEMOGLOBIN 0.3 % (0.0-1.5); BG OXYGEN SATURATION 95.2 % (92.0-98.5); BG OXYHEMOGLOBIN 94.2 % (94.0-97.0); BG PCO2 31.2 mmHg (35.0-45.0); BG PH 7.441 (7.350-7.450); BG PO2 74.5 mmHg (75.0-100.0); BG SAMPLE SITE RIGHT RADIAL; BG TOTAL HEMOGLOBIN 15.5 g/dL (12.0-18.0); BG VENT MODE VAPOTHERM
[2019-02-25 12:16] LABS: PLATELET ESTIMATE NORMAL
[2019-02-26] VITALS (88 sets, daily range): BP systolic 129–160; BP diastolic 50–112
[2019-02-26] MEDS: IPRATROPIUM/ALBUTEROL 0.5-3(2.5)MG/3ML NEB HHN SCH ×4 (01:20→20:18)
[2019-02-26] MEDS: HYDRALAZINE 20MG/ML VIAL IV SCH ×2 (02:03→06:47)
[2019-02-26] MEDS: METOCLOPRAMIDE HCL 10MG/2ML VIAL IV SCH ×4 (02:03→17:18)
[2019-02-26 05:48] LABS: HEMATOCRIT. 46.3 % (42.0-52.0); HEMOGLOBIN. 15.3 g/dL (14.0-18.0); MEAN CORPUSCULAR HEMOGLOBIN 31.2 pg (28.0-32.0); MEAN CORPUSCULAR VOLUME 94.5 fL (80.0-94.0); MEAN PLATELET VOLUME 8.9 fl (7.4-10.4); PLATELET 171 x1000/uL (130-400); RED CELL DISTRIBUTION WIDTH 16.5 % (11.6-14.6)
[2019-02-26] MEDS: NICARDIPINE 50 MG in SODIUM CHLORIDE 0.9% 230 ML IV PRN ×2 (05:57→19:31)
[2019-02-26 06:18] LABS: CHLORIDE 110 mEq/L (98-107)
[2019-02-26] MEDS: NITROGLYCERIN OINT 1GM/INCH UDPKT TD SCH (06:46)
[2019-02-26] MEDS: METRONIDAZOLE 500 MG PREMIX 100 ML IV SCH ×2 (06:46→20:59)
[2019-02-26 08:17] LABS: PLATELET ESTIMATE NORMAL
[2019-02-26] MEDS: CEFEPIME 1,000 MG in DEXTROSE 5% WATER 50 ML IV SCH ×2 (08:39→20:27)
[2019-02-26] MEDS: PANTOPRAZOLE SODIUM 40 MG/VIAL IV SCH (08:39)
[2019-02-26] MEDS: METHYLPREDNISOLONE SOD SUCC 40 MG/ML VIAL IV SCH ×2 (08:39→17:18)
[2019-02-26] MEDS: ASPIRIN 81MG TABLET PO SCH (08:39)
[2019-02-26] MEDS ORDERED: DEXTROSE 50% WATER 50ML SYRINGE IV PRN (09:00)
[2019-02-26 09:12] LABS: BG BASE EXCESS -5.3 mmol/L (-2.0-2.0); BG CARBOXYHEMOGLOBIN 0.9 % (0.5-1.5); BG DEOXYHEMOGLOBIN 14.8 % (0.0-5.0); BG FRACTION INSPIRED OXYGEN 70; BG HCO3 ACT 18.6 mmol/L (22.0-26.0); BG METHEMOGLOBIN 0.3 % (0.0-1.5); BG PCO2 32.1 mmHg (35.0-45.0); BG SAMPLE SITE LEFT RADIAL; BG TOTAL HEMOGLOBIN 16.8 g/dL (12.0-18.0); BG VENT MODE VAPOTHERM
[2019-02-26] MEDS ORDERED: HYDRALAZINE 20MG/ML VIAL IV PRN (10:00)
[2019-02-26] MEDS: BUDESONIDE 0.5MG/2ML NEB HHN SCH ×2 (10:00→20:17)
[2019-02-26] MEDS: CARVEDILOL 12.5MG TABLET PO SCH ×2 (10:50→20:47)
[2019-02-26] MEDS: LOSARTAN POTASSIUM 50 MG TABLET PO SCH (10:51)
[2019-02-26] MEDS: AMLODIPINE 5MG TABLET PO SCH ×2 (10:51→20:58)
[2019-02-26 12:34] LABS: BG BILEVEL POS AIRWAY PRESSURE ST=15/5; BG CARBOXYHEMOGLOBIN 1.2 % (0.5-1.5); BG DEOXYHEMOGLOBIN 2.4 % (0.0-5.0); BG FRACTION INSPIRED OXYGEN 60; BG HCO3 ACT 21.2 mmol/L (22.0-26.0); BG METHEMOGLOBIN 0.3 % (0.0-1.5); BG OXYGEN SATURATION 97.6 % (92.0-98.5); BG OXYHEMOGLOBIN 96.1 % (94.0-97.0); BG PCO2 35.6 mmHg (35.0-45.0); BG PH 7.392 (7.350-7.450); BG PRESSURE SUPPORT 10; BG SAMPLE SITE RIGHT RADIAL; BG TOTAL HEMOGLOBIN 16.5 g/dL (12.0-18.0); BG VENT MODE MASK - BIPAP; BG VENT RATE 16 set
[2019-02-26] MEDS ORDERED: BLOOD SUGAR DIAGNOSTIC STRIP TEST SCH (12:50)
[2019-02-26] MEDS ORDERED: INSULIN LISPRO 100 UNITS/ML SUBCUT SCH (13:20)
[2019-02-26] MEDS ORDERED: IOHEXOL-350 100 ML BOTTLE ONE (14:20)
[2019-02-26] MEDS ORDERED: FUROSEMIDE 40MG/4ML VIAL IVP SCH (14:45)
[2019-02-26] MEDS: MORPHINE SULFATE 2 MG/ML CPJ (NOT FOR IM USE) IV PRN (21:19)
[2019-02-27] VITALS (77 sets, daily range): BP systolic 104–166; BP diastolic 39–101
[2019-02-27] MEDS: METOCLOPRAMIDE HCL 10MG/2ML VIAL IV SCH ×4 (00:56→17:37)
[2019-02-27] MEDS: IPRATROPIUM/ALBUTEROL 0.5-3(2.5)MG/3ML NEB HHN SCH ×4 (01:24→20:26)
[2019-02-27] MEDS: NICARDIPINE 50 MG in SODIUM CHLORIDE 0.9% 230 ML IV PRN (05:12)
[2019-02-27 05:41] LABS: HEMATOCRIT. 50.1 % (42.0-52.0); HEMOGLOBIN. 16.6 g/dL (14.0-18.0); MEAN CORPUSCULAR HEMOGLOBIN 31.3 pg (28.0-32.0); MEAN CORPUSCULAR VOLUME 94.3 fL (80.0-94.0); MEAN PLATELET VOLUME 9.1 fl (7.4-10.4); PLATELET 201 x1000/uL (130-400); RED BLOOD CELL COUNT 5.31 mill/uL (4.7-6.1); RED CELL DISTRIBUTION WIDTH 16.3 % (11.6-14.6)
[2019-02-27 05:49] LABS: CHLORIDE 105 mEq/L (98-107)
[2019-02-27] MEDS: BUDESONIDE 0.5MG/2ML NEB HHN SCH ×2 (08:10→20:26)
[2019-02-27] MEDS: CEFEPIME 1,000 MG in DEXTROSE 5% WATER 50 ML IV SCH ×2 (08:50→21:29)
[2019-02-27] MEDS: ASPIRIN 81MG TABLET PO SCH (08:51)
[2019-02-27] MEDS: METHYLPREDNISOLONE SOD SUCC 40 MG/ML VIAL IV SCH ×2 (08:51→17:37)
[2019-02-27] MEDS: PANTOPRAZOLE SODIUM 40 MG/VIAL IV SCH (08:51)
[2019-02-27] MEDS: LOSARTAN POTASSIUM 50 MG TABLET PO SCH ×2 (08:53→21:36)
[2019-02-27] MEDS: CARVEDILOL 12.5MG TABLET PO SCH ×2 (09:20→21:37)
[2019-02-27 09:31] LABS: PLATELET ESTIMATE NORMAL
[2019-02-27 09:49] LABS: BG FRACTION INSPIRED OXYGEN 60; BG SAMPLE SITE RIGHT RADIAL; BG VENT MODE VAPOTHERM
[2019-02-27 09:57] LABS: BG PH 7.335 (7.350-7.450)
[2019-02-27 09:59] LABS: BG PCO2 42.8 mmHg (35.0-45.0); BG PO2 81.6 mmHg (75.0-100.0)
[2019-02-27 10:00] LABS: BG HCO3 ACT 22.3 mmol/L (22.0-26.0)
[2019-02-27 10:01] LABS: BG BASE EXCESS -3.5 mmol/L (-2.0-2.0)
[2019-02-27 10:02] LABS: BG TOTAL HEMOGLOBIN 17.1 g/dL (12.0-18.0)
[2019-02-27 10:03] LABS: BG OXYGEN SATURATION 95.5 % (92.0-98.5)
[2019-02-27 10:04] LABS: BG OXYHEMOGLOBIN 94.4 % (94.0-97.0)
[2019-02-27 10:05] LABS: BG CARBOXYHEMOGLOBIN 0.8 % (0.5-1.5)
[2019-02-27 10:06] LABS: BG METHEMOGLOBIN 0.4 % (0.0-1.5)
[2019-02-27 10:07] LABS: BG DEOXYHEMOGLOBIN 4.4 % (0.0-5.0)
[2019-02-27] MEDS: AMLODIPINE 5MG TABLET PO SCH ×2 (10:32→21:37)
[2019-02-27] MEDS: METRONIDAZOLE 500 MG PREMIX 100 ML IV SCH ×2 (10:43→21:52)
[2019-02-27] MEDS: HYDRALAZINE HCL 50MG TABLET PO SCH ×2 (12:57→21:37)
[2019-02-27] MEDS ORDERED: BISACODYL 10MG SUPP PR PRN (15:30)
[2019-02-28] VITALS (30 sets, daily range): BP systolic 128–170; BP diastolic 57–106
[2019-02-28] MEDS: METOCLOPRAMIDE HCL 10MG/2ML VIAL IV SCH ×5 (00:27→23:23)
[2019-02-28] MEDS: IPRATROPIUM/ALBUTEROL 0.5-3(2.5)MG/3ML NEB HHN SCH ×4 (01:25→21:21)
[2019-02-28 05:48] LABS: HEMATOCRIT. 52.2 % (42.0-52.0); HEMOGLOBIN. 17.5 g/dL (14.0-18.0); MEAN CORPUSCULAR HEMOGLOBIN 31.5 pg (28.0-32.0); MEAN CORPUSCULAR VOLUME 93.7 fL (80.0-94.0); MEAN PLATELET VOLUME 9.1 fl (7.4-10.4); PLATELET 186 x1000/uL (130-400); RED BLOOD CELL COUNT 5.57 mill/uL (4.7-6.1); RED CELL DISTRIBUTION WIDTH 16.1 % (11.6-14.6)
[2019-02-28 05:57] LABS: CHLORIDE 106 mEq/L (98-107)
[2019-02-28] MEDS: HYDRALAZINE HCL 50MG TABLET PO SCH (06:15)
[2019-02-28 08:00] LABS: PLATELET ESTIMATE NORMAL
[2019-02-28] MEDS: ASPIRIN 81MG TABLET PO SCH (08:20)
[2019-02-28] MEDS: PANTOPRAZOLE SODIUM 40 MG/VIAL IV SCH (08:20)
[2019-02-28] MEDS: CEFEPIME 1,000 MG in DEXTROSE 5% WATER 50 ML IV SCH ×2 (08:20→21:02)
[2019-02-28] MEDS: METRONIDAZOLE 500 MG PREMIX 100 ML IV SCH ×2 (08:20→22:01)
[2019-02-28] MEDS: METHYLPREDNISOLONE SOD SUCC 40 MG/ML VIAL IV SCH (08:20)
[2019-02-28] MEDS: NIFEDIPINE XL 60MG TAB PO SCH ×2 (08:21→21:07)
[2019-02-28] MEDS: LOSARTAN POTASSIUM 50 MG TABLET PO SCH ×2 (08:21→21:07)
[2019-02-28] MEDS: CARVEDILOL 12.5MG TABLET PO SCH ×2 (08:21→21:07)
[2019-02-28] MEDS: BUDESONIDE 0.5MG/2ML NEB HHN SCH ×3 (08:58→21:21)
[2019-02-28] MEDS ORDERED: LACTULOSE 20G/30ML UDC PO SCH (10:45)
[2019-02-28] MEDS: TRIAMTERENE/HYDROCHLOROTHIAZID 75/50MG TABLET PO SCH (12:18)
[2019-02-28] MEDS: FLUTICASONE PROPIONATE 50MCG/SPRAY BOTTLE BOTHNSTRLS SCH ×2 (12:19→21:04)
[2019-02-28] MEDS: HYDRALAZINE HCL 100MG TABLET PO SCH ×2 (13:13→21:08)
[2019-02-28] MEDS: CLONIDINE 0.1MG TABLET PO SCH ×2 (13:13→21:08)
[2019-02-28] MEDS ORDERED: LACTULOSE 20G/30ML UDC PO NR (14:00)
[2019-02-28] MEDS: FOLIC ACID 1MG TABLET PO SCH (23:23)
[2019-02-28] MEDS: THIAMINE HCL 100MG TABLET PO SCH (23:23)
[2019-03-01] VITALS (19 sets, daily range): BP systolic 108–146; BP diastolic 54–97
[2019-03-01] MEDS: IPRATROPIUM/ALBUTEROL 0.5-3(2.5)MG/3ML NEB HHN SCH ×4 (01:58→20:57)
[2019-03-01 05:49] LABS: CHLORIDE 104 mEq/L (98-107)
[2019-03-01] MEDS: METOCLOPRAMIDE HCL 10MG/2ML VIAL IV SCH ×4 (06:08→23:36)
[2019-03-01] MEDS: HYDRALAZINE HCL 100MG TABLET PO SCH ×3 (06:09→22:26)
[2019-03-01] MEDS: CLONIDINE 0.1MG TABLET PO SCH ×3 (06:09→22:27)
[2019-03-01 08:08] LABS: BASOPHILS % 0.2 % (0.0-2.0); EOSINOPHILS % 0.5 % (0.0-5.0); HEMATOCRIT. 50.3 % (42.0-52.0); HEMOGLOBIN. 16.6 g/dL (14.0-18.0); LYMPHOCYTES % 9.1 % (20.0-50.0); MEAN CORPUSCULAR HEMOGLOBIN 31.2 pg (28.0-32.0); MEAN CORPUSCULAR VOLUME 94.4 fL (80.0-94.0); MEAN PLATELET VOLUME 9.6 fl (7.4-10.4); MONOCYTES % 7.4 % (2.0-8.0); NEUTROPHILS % 82.8 % (40.0-76.0); PLATELET 194 x1000/uL (130-400); RED BLOOD CELL COUNT 5.33 mill/uL (4.7-6.1); RED CELL DISTRIBUTION WIDTH 16.1 % (11.6-14.6)
[2019-03-01] MEDS: BUDESONIDE 0.5MG/2ML NEB HHN SCH ×2 (08:10→09:00)
[2019-03-01] MEDS: PANTOPRAZOLE SODIUM 40 MG/VIAL IV SCH (08:15)
[2019-03-01] MEDS: FLUTICASONE PROPIONATE 50MCG/SPRAY BOTTLE BOTHNSTRLS SCH ×2 (08:15→21:17)
[2019-03-01] MEDS: NIFEDIPINE XL 60MG TAB PO SCH (08:16)
[2019-03-01] MEDS: LOSARTAN POTASSIUM 50 MG TABLET PO SCH ×2 (08:16→21:18)
[2019-03-01] MEDS: FOLIC ACID 1MG TABLET PO SCH (08:16)
[2019-03-01] MEDS: CEFEPIME 1,000 MG in DEXTROSE 5% WATER 50 ML IV SCH (08:16)
[2019-03-01] MEDS: THIAMINE HCL 100MG TABLET PO SCH (08:16)
[2019-03-01] MEDS: METRONIDAZOLE 500 MG PREMIX 100 ML IV SCH (08:16)
[2019-03-01] MEDS: PREDNISONE 20MG TABLET PO SCH (08:16)
[2019-03-01] MEDS: TRIAMTERENE/HYDROCHLOROTHIAZID 75/50MG TABLET PO SCH (08:17)
[2019-03-01] MEDS: ASPIRIN 81MG TABLET PO SCH (08:17)
[2019-03-01] MEDS: CARVEDILOL 12.5MG TABLET PO SCH ×2 (08:17→20:58)
[2019-03-01 09:35] LABS: BG BASE EXCESS -0.1 mmol/L (-2.0-2.0); BG CARBOXYHEMOGLOBIN 0.8 % (0.5-1.5); BG DEOXYHEMOGLOBIN 9.1 % (0.0-5.0); BG FRACTION INSPIRED OXYGEN 32; BG HCO3 ACT 23.4 mmol/L (22.0-26.0); BG METHEMOGLOBIN 0.3 % (0.0-1.5); BG OXYGEN SATURATION 90.8 % (92.0-98.5); BG OXYHEMOGLOBIN 89.8 % (94.0-97.0); BG PCO2 35.5 mmHg (35.0-45.0); BG PH 7.437 (7.350-7.450); BG PO2 56.9 mmHg (75.0-100.0); BG SAMPLE SITE RIGHT BRACHIAL; BG TOTAL HEMOGLOBIN 17.5 g/dL (12.0-18.0); BG VENT MODE NASAL CANNULA
[2019-03-01] MEDS ORDERED: HYDRALAZINE HCL 50MG TABLET PO SCH (17:00)
[2019-03-01] MEDS: ACETAMINOPHEN 325MG TABLET PO PRN (22:27)
[2019-03-02] VITALS (12 sets, daily range): BP systolic 101–147; BP diastolic 43–97
[2019-03-02] MEDS: IPRATROPIUM/ALBUTEROL 0.5-3(2.5)MG/3ML NEB HHN SCH ×4 (01:30→21:16)
[2019-03-02] MEDS: METOCLOPRAMIDE HCL 10MG/2ML VIAL IV SCH ×3 (05:57→17:00)
[2019-03-02] MEDS: CLONIDINE 0.1MG TABLET PO SCH ×3 (05:58→23:25)
[2019-03-02] MEDS: HYDRALAZINE HCL 100MG TABLET PO SCH ×3 (05:58→23:24)
[2019-03-02 06:06] LABS: CHLORIDE 103 mEq/L (98-107)
[2019-03-02 06:16] LABS: BASOPHILS % 0.2 % (0.0-2.0); EOSINOPHILS % 0.9 % (0.0-5.0); HEMOGLOBIN. 17.1 g/dL (14.0-18.0); LYMPHOCYTES % 10.8 % (20.0-50.0); MEAN CORPUSCULAR HEMOGLOBIN 31.8 pg (28.0-32.0); MEAN PLATELET VOLUME 9.4 fl (7.4-10.4); MONOCYTES % 8.2 % (2.0-8.0); NEUTROPHILS % 79.9 % (40.0-76.0); PLATELET 187 x1000/uL (130-400); RED BLOOD CELL COUNT 5.38 mill/uL (4.7-6.1); RED CELL DISTRIBUTION WIDTH 15.8 % (11.6-14.6)
[2019-03-02] MEDS: PANTOPRAZOLE SODIUM 40 MG/VIAL IV SCH (08:06)
[2019-03-02] MEDS: PREDNISONE 20MG TABLET PO SCH (08:07)
[2019-03-02] MEDS: LOSARTAN POTASSIUM 50 MG TABLET PO SCH ×2 (08:07→21:39)
[2019-03-02] MEDS: THIAMINE HCL 100MG TABLET PO SCH (08:07)
[2019-03-02] MEDS: ASPIRIN 81MG TABLET PO SCH (08:07)
[2019-03-02] MEDS: FLUTICASONE PROPIONATE 50MCG/SPRAY BOTTLE BOTHNSTRLS SCH ×2 (08:07→21:06)
[2019-03-02] MEDS: FOLIC ACID 1MG TABLET PO SCH (08:07)
[2019-03-02] MEDS: CARVEDILOL 12.5MG TABLET PO SCH ×2 (08:15→21:04)
[2019-03-02] MEDS ORDERED: ASPIRIN 81MG EC TABLET PO SCH (09:00)
[2019-03-02] MEDS: TRIAMTERENE/HYDROCHLOROTHIAZID 75/50MG TABLET PO SCH (11:47)
[2019-03-02] MEDS: BUDESONIDE 0.5MG/2ML NEB HHN SCH ×2 (13:15→21:17)
[2019-03-02] MEDS: ACETAMINOPHEN 325MG TABLET PO PRN (21:11)
[2019-03-03] VITALS: BP 127/64
[2019-03-03] MEDS: METOCLOPRAMIDE HCL 10MG/2ML VIAL IV SCH ×2 (00:41→06:29)
[2019-03-03] MEDS: IPRATROPIUM/ALBUTEROL 0.5-3(2.5)MG/3ML NEB HHN SCH ×2 (01:10→09:06)
[2019-03-03 02:00] VITALS: BP 127/60
[2019-03-03 04:00] VITALS: BP 97/58
[2019-03-03 05:00] VITALS: BP 126/77
[2019-03-03 06:00] VITALS: BP 132/87
[2019-03-03 06:37] LABS: CHLORIDE 102 mEq/L (98-107)
[2019-03-03 06:39] LABS: BASOPHILS % 0.1 % (0.0-2.0); EOSINOPHILS % 1.3 % (0.0-5.0); HEMATOCRIT. 47.7 % (42.0-52.0); LYMPHOCYTES % 14.1 % (20.0-50.0); MEAN CORPUSCULAR HEMOGLOBIN 31.5 pg (28.0-32.0); MEAN CORPUSCULAR VOLUME 93.7 fL (80.0-94.0); MEAN PLATELET VOLUME 9.7 fl (7.4-10.4); MONOCYTES % 7.5 % (2.0-8.0); PLATELET 199 x1000/uL (130-400); RED BLOOD CELL COUNT 5.09 mill/uL (4.7-6.1)
[2019-03-03] MEDS: CLONIDINE 0.1MG TABLET PO SCH (06:40)
[2019-03-03] MEDS: HYDRALAZINE HCL 100MG TABLET PO SCH (06:40)
[2019-03-03] MEDS ORDERED: OMEPRAZOLE 20MG CAPSULE EXTENDED RELEASE PO SCH (06:50)
[2019-03-03] MEDS: ACETAMINOPHEN 325MG TABLET PO PRN (06:53)
[2019-03-03 07:50] VITALS: BP 135/74
[2019-03-03] MEDS ORDERED: PREDNISONE 20MG TABLET PO SCH (09:00)
== END 2019-03-03 08:25 | disposition left against medical advice (07) | DRG 853 ==
LOC: CCL 10:35 → CVICU 18:54 → 3WST 03-01 16:35
PROVIDERS: ADMIT Family Medicine Adult Medicine; ATTEND Family Medicine Adult Medicine
PROC: 04V03EZ Restriction of Abdominal Aorta with Branched or Fenestrated Intraluminal Device, One or Two Arteries, Percutaneous Approach (ICD-10-PCS; principal; 2019-02-21)
DX: A41.51 Sepsis due to Escherichia coli [E. coli] (principal); J96.00 Acute respiratory failure, unspecified whether with hypoxia or hypercapnia; J15.5 Pneumonia due to Escherichia coli; K56.7 Ileus, unspecified; N39.0 Urinary tract infection, site not specified; J44.0 Chronic obstructive pulmonary disease with (acute) lower respiratory infection; K92.2 Gastrointestinal hemorrhage, unspecified; I71.4 Abdominal aortic aneurysm, without rupture; E78.5 Hyperlipidemia, unspecified; I25.10 Atherosclerotic heart disease of native coronary artery without angina pectoris; D69.6 Thrombocytopenia, unspecified; E87.6 Hypokalemia; I27.20 Pulmonary hypertension, unspecified; I11.9 Hypertensive heart disease without heart failure; I25.5 Ischemic cardiomyopathy; I34.0 Nonrheumatic mitral (valve) insufficiency; I27.22 Pulmonary hypertension due to left heart disease; I70.0 Atherosclerosis of aorta; I73.9 Peripheral vascular disease, unspecified; Z96.652 Presence of left artificial knee joint; K31.9 Disease of stomach and duodenum, unspecified; T38.0X5A Adverse effect of glucocorticoids and synthetic analogues, initial encounter; Y92.89 Other specified places as the place of occurrence of the external cause; Z78.1 Physical restraint status; Z82.49 Family history of ischemic heart disease and other diseases of the circulatory system; Z86.79 Personal history of other diseases of the circulatory system; Z87.891 Personal history of nicotine dependence; Z95.1 Presence of aortocoronary bypass graft
CPT/HCPCS: 34846; 36415; 36600; 71045; 71275; 74018; 76705; 80048; 80061; 81003; 82375; 82805; 83036; 83735; 83880; 84100; 85347; 87070; 87077; 87186; 93005; 93306; 93970; 94002; 94003; 94640; 94660; 97110; 97116; 97162; 97166; 97530; 97535; C1725; C1760; C1769; C1874; C1887; C1893; C1894; C9113; J0360; J0692; J1170; J1644; J1940; J2060; J2250; J2270; J2543; J2704; J2710; J2720; J2765; J2920; J2930; J3010; J3475; J3490; J7030; J7050; J7060; J7512; J7620; J7626; Q9967

== ENCOUNTER 2019-03-06 05:24 | Inpatient (IN) | payer MEDICARE, MEDICAID ==
[2019-03-06] VITALS (7 sets, daily range): BP systolic 146–177; BP diastolic 65–113
[~2019-03-06] VITALS: Ht 170.2 cm; Wt 80.8 kg
[~2019-03-06 05:24] MED LIST changes: +AMLO5TAB88 MT; +ATOR40TA70 MT; -BUDE6HFA INH; +LOSA50TA41 MT
[2019-03-06] MEDS ORDERED: SODIUM CHLORIDE 0.9% 1,000 ML IV ONE (06:38)
[2019-03-06] MEDS ORDERED: MORPHINE SULFATE 4 MG/ML CPJ (NOT FOR IM USE) IV STA (06:38)
[2019-03-06] MEDS ORDERED: ONDANSETRON HCL 4MG/2ML INJ IV STA (06:38)
[2019-03-06 06:46] LABS: CHLORIDE 104 mEq/L (98-107)
[2019-03-06 06:51] LABS: BASOPHILS % 0.5 % (0.0-2.0); EOSINOPHILS % 0.5 % (0.0-5.0); HEMATOCRIT. 47.7 % (42.0-52.0); HEMOGLOBIN. 16.3 g/dL (14.0-18.0); LYMPHOCYTES % 8.6 % (20.0-50.0); MEAN CORPUSCULAR VOLUME 93.4 fL (80.0-94.0); MEAN PLATELET VOLUME 9.2 fl (7.4-10.4); MONOCYTES % 7.3 % (2.0-8.0); NEUTROPHILS % 83.1 % (40.0-76.0); PLATELET 231 x1000/uL (130-400); RED BLOOD CELL COUNT 5.11 mill/uL (4.7-6.1); RED CELL DISTRIBUTION WIDTH 16.2 % (11.6-14.6)
[2019-03-06 07:17] LABS: PARTIAL THROMBOPLASTIN TIME 24.4 sec (23.4-31.0); PROTHROMBIN TIME 10.3 sec (9.6-11.0)
[2019-03-06] MEDS ORDERED: MORPHINE SULFATE 10 MG/ML CPJ IV ONE (08:00)
[2019-03-06] MEDS ORDERED: ONDANSETRON HCL 4MG/2ML INJ IV ONE (08:00)
[2019-03-06] MEDS: PIPERACILLIN/TAZ 3.375G PREMIX 50 ML IV ONE ×2 (08:12→08:30)
[2019-03-06] MEDS ORDERED: IOHEXOL-350 100 ML BOTTLE ONE (09:12)
[2019-03-06] MEDS: CARVEDILOL 12.5MG TABLET PO SCH ×2 (09:30→17:48)
[2019-03-06] MEDS: AMLODIPINE 5MG TABLET PO SCH ×3 (09:30→21:05)
[2019-03-06] MEDS: ASPIRIN 81MG EC TABLET PO SCH ×2 (09:30→13:05)
[2019-03-06] MEDS: SODIUM CHLORIDE 0.9% 1,000 ML IV SCH (12:00)
[2019-03-06] MEDS: MORPHINE SULFATE 2 MG/ML CPJ (NOT FOR IM USE) IV PRN ×3 (13:06→22:18)
[2019-03-06] MEDS: HYDRALAZINE HCL 50MG TABLET PO SCH ×2 (13:06→21:06)
[2019-03-06] MEDS: ENOXAPARIN 100MG/ML SYR SUBCUT SCH (13:07)
[2019-03-06] MEDS ORDERED: LEVOFLOXACIN 500MG PREMIX 100 ML IV SCH (14:00)
[2019-03-06] MEDS ORDERED: METRONIDAZOLE 500 MG PREMIX 100 ML IV SCH (16:00)
[2019-03-06] MEDS: CLONIDINE 0.1MG TABLET PO PRN (16:36)
[2019-03-06] MEDS: CEFTRIAXONE 1 G PREMIX 50 ML IV SCH (16:36)
[2019-03-06] MEDS ORDERED: ACETAMINOPHEN 325MG TABLET PO PRN (17:45)
[2019-03-06] MEDS ORDERED: ONDANSETRON HCL 4MG/2ML INJ IV PRN (17:45)
[2019-03-06] MEDS: METOCLOPRAMIDE HCL 10MG/2ML VIAL IV SCH (17:48)
[2019-03-06 20:18] LABS: CLARITY URINE CLEAR (CLEAR); COLOR URINE YELLOW (YELLOW); KETONES URINE NEGATIVE (NEGATIVE); LEUKOCYTE ESTERASE URINE NEGATIVE (NEGATIVE); NITRITE URINE NEGATIVE (NEGATIVE); OCCULT BLOOD URINE NEGATIVE (NEGATIVE); PROTEIN URINE 1+ (NEGATIVE); UROBILINOGEN URINE 0.2 E.U./dL (0.2-1.0)
[2019-03-06] MEDS: METRONIDAZOLE 500 MG PREMIX 100 ML IV SCH (21:03)
[2019-03-06] MEDS: ATORVASTATIN CALCIUM 40MG TABLET PO SCH (21:03)
[2019-03-06] MEDS: FAMOTIDINE 20MG TABLET PO SCH (21:03)
[2019-03-06 22:27] LABS: *AMPHETAMINES SCREEN URINE NEGATIVE (NEGATIVE); *BARBITURATES SCREEN URINE NEGATIVE (NEGATIVE); *BENZODIAZEPINES SCREEN URINE NEGATIVE (NEGATIVE); *COCAINE SCREEN URINE NEGATIVE (NEGATIVE); METHADONE URINE SCREEN NEGATIVE (NEGATIVE); OPIATES URINE SCREEN PRESUMTIVE POSITIVE (NEGATIVE)
[2019-03-06 22:28] LABS: CANNABINOID URINE SCREEN NEGATIVE (NEGATIVE); PHENCYCLIDINE URINE SCREEN NEGATIVE (NEGATIVE)
[2019-03-07] VITALS (12 sets, daily range): BP systolic 128–150; BP diastolic 68–88
[2019-03-07] MEDS: METOCLOPRAMIDE HCL 10MG/2ML VIAL IV SCH ×5 (00:11→23:50)
[2019-03-07] MEDS: ENOXAPARIN 100MG/ML SYR SUBCUT SCH ×3 (00:11→23:49)
[2019-03-07] MEDS: MORPHINE SULFATE 2 MG/ML CPJ (NOT FOR IM USE) IV PRN ×4 (02:20→23:51)
[2019-03-07] MEDS: SODIUM CHLORIDE 0.9% 1,000 ML IV SCH ×2 (02:24→14:54)
[2019-03-07] MEDS: HYDROCODONE/ACETAMINOPHEN 5/325MG TABLET PO PRN ×3 (04:35→20:19)
[2019-03-07] MEDS: HYDRALAZINE HCL 50MG TABLET PO SCH (05:53)
[2019-03-07 06:52] LABS: BASOPHILS % 0.2 % (0.0-2.0); EOSINOPHILS % 0.7 % (0.0-5.0); HEMATOCRIT. 44.3 % (42.0-52.0); HEMOGLOBIN. 14.6 g/dL (14.0-18.0); LYMPHOCYTES % 9.8 % (20.0-50.0); MEAN CORPUSCULAR HEMOGLOBIN 31.4 pg (28.0-32.0); MEAN CORPUSCULAR VOLUME 95.6 fL (80.0-94.0); MONOCYTES % 9.2 % (2.0-8.0); NEUTROPHILS % 80.1 % (40.0-76.0); PLATELET 195 x1000/uL (130-400); RED BLOOD CELL COUNT 4.63 mill/uL (4.7-6.1); RED CELL DISTRIBUTION WIDTH 15.9 % (11.6-14.6)
[2019-03-07] MEDS: AMLODIPINE 5MG TABLET PO SCH ×2 (09:25→20:15)
[2019-03-07] MEDS: ASPIRIN 81MG EC TABLET PO SCH (09:25)
[2019-03-07] MEDS: CARVEDILOL 12.5MG TABLET PO SCH ×2 (09:25→16:44)
[2019-03-07] MEDS: FAMOTIDINE 20MG TABLET PO SCH ×2 (09:25→20:15)
[2019-03-07] MEDS: METRONIDAZOLE 500 MG PREMIX 100 ML IV SCH ×2 (09:26→20:15)
[2019-03-07 09:36] LABS: CHLORIDE 104 mEq/L (98-107)
[2019-03-07 09:42] LABS: PHOSPHORUS 2.6 mg/dL (2.5-4.9)
[2019-03-07] MEDS: CLONIDINE 0.1MG TABLET PO PRN (10:15)
[2019-03-07] MEDS: HYDRALAZINE HCL 100MG TABLET PO SCH ×2 (14:53→22:04)
[2019-03-07] MEDS: CEFTRIAXONE 1 G PREMIX 50 ML IV SCH (15:21)
[2019-03-07] MEDS: ATORVASTATIN CALCIUM 40MG TABLET PO SCH (20:14)
[2019-03-08] VITALS (12 sets, daily range): BP systolic 133–173; BP diastolic 55–87
[2019-03-08] MEDS: CLONIDINE 0.1MG TABLET PO PRN (02:19)
[2019-03-08] MEDS: METOCLOPRAMIDE HCL 10MG/2ML VIAL IV SCH ×4 (05:44→23:01)
[2019-03-08] MEDS: HYDRALAZINE HCL 100MG TABLET PO SCH ×3 (05:45→21:05)
[2019-03-08] MEDS: SODIUM CHLORIDE 0.9% 1,000 ML IV SCH ×2 (05:52→20:17)
[2019-03-08] MEDS: MORPHINE SULFATE 2 MG/ML CPJ (NOT FOR IM USE) IV PRN (05:52)
[2019-03-08 07:31] LABS: BASOPHILS % 0.3 % (0.0-2.0); EOSINOPHILS % 0.7 % (0.0-5.0); HEMATOCRIT. 43.2 % (42.0-52.0); HEMOGLOBIN. 14.3 g/dL (14.0-18.0); LYMPHOCYTES % 9.7 % (20.0-50.0); MEAN CORPUSCULAR HEMOGLOBIN 31.4 pg (28.0-32.0); MEAN CORPUSCULAR VOLUME 95.1 fL (80.0-94.0); MEAN PLATELET VOLUME 9.7 fl (7.4-10.4); MONOCYTES % 9.3 % (2.0-8.0); PLATELET 179 x1000/uL (130-400); RED BLOOD CELL COUNT 4.54 mill/uL (4.7-6.1); RED CELL DISTRIBUTION WIDTH 15.9 % (11.6-14.6)
[2019-03-08 08:07] LABS: CHLORIDE 104 mEq/L (98-107)
[2019-03-08] MEDS: CARVEDILOL 12.5MG TABLET PO SCH ×2 (08:54→16:28)
[2019-03-08] MEDS: FAMOTIDINE 20MG TABLET PO SCH ×2 (08:54→20:17)
[2019-03-08] MEDS: ASPIRIN 81MG EC TABLET PO SCH (08:55)
[2019-03-08] MEDS: AMLODIPINE 5MG TABLET PO SCH ×2 (08:55→20:18)
[2019-03-08] MEDS: METRONIDAZOLE 500 MG PREMIX 100 ML IV SCH ×2 (08:55→20:17)
[2019-03-08] MEDS: LOSARTAN POTASSIUM 100 MG TABLET PO SCH (11:30)
[2019-03-08] MEDS: TRIAMTERENE/HYDROCHLOROTHIAZID 75/50MG TABLET PO SCH (13:55)
[2019-03-08] MEDS: ENOXAPARIN 100MG/ML SYR SUBCUT SCH ×2 (13:56→23:01)
[2019-03-08] MEDS: HYDROCODONE/ACETAMINOPHEN 5/325MG TABLET PO PRN ×2 (13:57→20:44)
[2019-03-08] MEDS: CEFTRIAXONE 1 G PREMIX 50 ML IV SCH (16:28)
[2019-03-08] MEDS: ATORVASTATIN CALCIUM 40MG TABLET PO SCH (20:17)
[2019-03-09] VITALS (12 sets, daily range): BP systolic 105–169; BP diastolic 55–90
[2019-03-09] MEDS: MORPHINE SULFATE 2 MG/ML CPJ (NOT FOR IM USE) IV PRN ×3 (00:43→20:36)
[2019-03-09] MEDS: HYDROCODONE/ACETAMINOPHEN 5/325MG TABLET PO PRN ×4 (03:45→21:34)
[2019-03-09] MEDS: METOCLOPRAMIDE HCL 10MG/2ML VIAL IV SCH ×4 (06:03→23:06)
[2019-03-09] MEDS: HYDRALAZINE HCL 100MG TABLET PO SCH ×3 (06:03→21:07)
[2019-03-09 06:54] LABS: BASOPHILS % 0.4 % (0.0-2.0); EOSINOPHILS % 0.5 % (0.0-5.0); HEMATOCRIT. 45.8 % (42.0-52.0); HEMOGLOBIN. 15.1 g/dL (14.0-18.0); LYMPHOCYTES % 7.5 % (20.0-50.0); MEAN CORPUSCULAR HEMOGLOBIN 31.2 pg (28.0-32.0); MEAN CORPUSCULAR VOLUME 94.5 fL (80.0-94.0); MONOCYTES % 9.4 % (2.0-8.0); NEUTROPHILS % 82.2 % (40.0-76.0); PLATELET 144 x1000/uL (130-400); RED BLOOD CELL COUNT 4.85 mill/uL (4.7-6.1)
[2019-03-09 07:00] LABS: CHLORIDE 105 mEq/L (98-107)
[2019-03-09] MEDS ORDERED: POTASSIUM CHLORIDE 20MEQ TABLET SR PO SCH (08:00)
[2019-03-09] MEDS: ASPIRIN 81MG EC TABLET PO SCH (08:38)
[2019-03-09] MEDS: FAMOTIDINE 20MG TABLET PO SCH ×2 (08:38→20:26)
[2019-03-09] MEDS: TRIAMTERENE/HYDROCHLOROTHIAZID 75/50MG TABLET PO SCH (08:39)
[2019-03-09] MEDS: AMLODIPINE 5MG TABLET PO SCH ×2 (08:39→20:26)
[2019-03-09] MEDS: LOSARTAN POTASSIUM 100 MG TABLET PO SCH (08:39)
[2019-03-09] MEDS: CARVEDILOL 12.5MG TABLET PO SCH ×2 (08:40→17:00)
[2019-03-09] MEDS: METRONIDAZOLE 500 MG PREMIX 100 ML IV SCH ×2 (08:43→20:25)
[2019-03-09] MEDS ORDERED: MAGNESIUM 2 G PREMIX 50 ML IV SCH (09:00)
[2019-03-09] MEDS: ENOXAPARIN 100MG/ML SYR SUBCUT SCH ×2 (11:17→23:02)
[2019-03-09] MEDS: CEFTRIAXONE 1 G PREMIX 50 ML IV SCH (15:56)
[2019-03-09] MEDS: ATORVASTATIN CALCIUM 40MG TABLET PO SCH (20:26)
[2019-03-10] VITALS (11 sets, daily range): BP systolic 115–176; BP diastolic 46–100
[2019-03-10] MEDS ORDERED: HYDROCODONE/ACETAMINOPHEN 10/325MG TABLET PO SCH (00:45)
[2019-03-10] MEDS: ZOLPIDEM TARTRATE 5MG TABLET PO PRN ×2 (01:01→22:42)
[2019-03-10] MEDS: HYDROCODONE/ACETAMINOPHEN 10/325MG TABLET PO PRN ×5 (01:01→22:42)
[2019-03-10] MEDS: METOCLOPRAMIDE HCL 10MG/2ML VIAL IV SCH ×4 (05:19→23:01)
[2019-03-10] MEDS: HYDRALAZINE HCL 100MG TABLET PO SCH ×3 (05:19→22:42)
[2019-03-10 07:06] LABS: BASOPHILS % 0.5 % (0.0-2.0); EOSINOPHILS % 0.5 % (0.0-5.0); HEMATOCRIT. 48.9 % (42.0-52.0); HEMOGLOBIN. 16.3 g/dL (14.0-18.0); LYMPHOCYTES % 10.8 % (20.0-50.0); MEAN CORPUSCULAR HEMOGLOBIN 31.6 pg (28.0-32.0); MEAN CORPUSCULAR VOLUME 94.7 fL (80.0-94.0); MEAN PLATELET VOLUME 8.8 fl (7.4-10.4); MONOCYTES % 11.6 % (2.0-8.0); NEUTROPHILS % 76.6 % (40.0-76.0); PLATELET 119 x1000/uL (130-400); RED BLOOD CELL COUNT 5.17 mill/uL (4.7-6.1); RED CELL DISTRIBUTION WIDTH 15.9 % (11.6-14.6)
[2019-03-10] MEDS: AMLODIPINE 5MG TABLET PO SCH ×2 (08:11→20:21)
[2019-03-10] MEDS: CARVEDILOL 12.5MG TABLET PO SCH ×2 (08:11→16:17)
[2019-03-10] MEDS: ASPIRIN 81MG EC TABLET PO SCH (08:11)
[2019-03-10] MEDS: TRIAMTERENE/HYDROCHLOROTHIAZID 75/50MG TABLET PO SCH (08:12)
[2019-03-10] MEDS: LOSARTAN POTASSIUM 100 MG TABLET PO SCH (08:12)
[2019-03-10] MEDS: FAMOTIDINE 20MG TABLET PO SCH (08:12)
[2019-03-10] MEDS: METRONIDAZOLE 500 MG PREMIX 100 ML IV SCH ×2 (08:12→20:21)
[2019-03-10] MEDS: SODIUM CHLORIDE 0.9% 1,000 ML IV SCH ×2 (08:30→11:28)
[2019-03-10] MEDS: ENOXAPARIN 100MG/ML SYR SUBCUT SCH (11:18)
[2019-03-10] MEDS: CEFTRIAXONE 1 G PREMIX 50 ML IV SCH (15:03)
[2019-03-10] MEDS: ATORVASTATIN CALCIUM 40MG TABLET PO SCH (20:21)
[2019-03-10] MEDS: ENOXAPARIN 80MG/0.8ML SYR SUBCUT SCH (20:21)
[2019-03-11] VITALS (11 sets, daily range): BP systolic 123–173; BP diastolic 75–95
[2019-03-11] MEDS: HYDROCODONE/ACETAMINOPHEN 10/325MG TABLET PO PRN ×4 (03:15→22:19)
[2019-03-11] MEDS: HYDRALAZINE HCL 100MG TABLET PO SCH ×3 (06:00→21:42)
[2019-03-11] MEDS: METOCLOPRAMIDE HCL 10MG/2ML VIAL IV SCH ×3 (06:00→16:56)
[2019-03-11 07:16] LABS: HEMATOCRIT 48.6 % (42.0-52.0); HEMOGLOBIN 16.2 g/dL (14.0-18.0); MEAN CORPUSCULAR HEMOGLOBIN 31.7 pg (28.0-32.0); MEAN CORPUSCULAR VOLUME 94.8 fL (80.0-94.0); PLATELET 129 x1000/uL (130-400); RED BLOOD CELL COUNT 5.12 mill/uL (4.7-6.1); RED CELL DISTRIBUTION WIDTH 15.7 % (11.6-14.6)
[2019-03-11] MEDS: ENOXAPARIN 80MG/0.8ML SYR SUBCUT SCH ×2 (08:27→21:39)
[2019-03-11] MEDS: FAMOTIDINE 20MG TABLET PO SCH (08:27)
[2019-03-11] MEDS: METRONIDAZOLE 500 MG PREMIX 100 ML IV SCH ×2 (08:28→21:39)
[2019-03-11] MEDS: ASPIRIN 81MG EC TABLET PO SCH (08:28)
[2019-03-11] MEDS: LOSARTAN POTASSIUM 100 MG TABLET PO SCH (08:28)
[2019-03-11] MEDS: AMLODIPINE 5MG TABLET PO SCH ×2 (08:29→21:42)
[2019-03-11] MEDS: CARVEDILOL 12.5MG TABLET PO SCH ×2 (08:29→16:56)
[2019-03-11] MEDS: SODIUM CHLORIDE 0.9% 1,000 ML IV SCH ×2 (14:19→16:42)
[2019-03-11] MEDS: CEFTRIAXONE 1 G PREMIX 50 ML IV SCH (16:56)
[2019-03-11] MEDS: ATORVASTATIN CALCIUM 40MG TABLET PO SCH (21:39)
[2019-03-11] MEDS: ZOLPIDEM TARTRATE 5MG TABLET PO PRN (22:19)
[2019-03-12] VITALS (8 sets, daily range): BP systolic 131–167; BP diastolic 71–107
[2019-03-12] MEDS: CLONIDINE 0.1MG TABLET PO PRN
[2019-03-12] MEDS: HYDROCODONE/ACETAMINOPHEN 10/325MG TABLET PO PRN ×2 (05:05→10:14)
[2019-03-12] MEDS: METOCLOPRAMIDE HCL 10MG/2ML VIAL IV SCH ×3 (05:29→12:00)
[2019-03-12] MEDS: HYDRALAZINE HCL 100MG TABLET PO SCH (05:29)
[2019-03-12 07:32] LABS: BASOPHILS % 1.1 % (0.0-2.0); HEMATOCRIT. 46.6 % (42.0-52.0); HEMOGLOBIN. 15.3 g/dL (14.0-18.0); LYMPHOCYTES % 11.5 % (20.0-50.0); MEAN CORPUSCULAR HEMOGLOBIN 31.1 pg (28.0-32.0); MEAN CORPUSCULAR VOLUME 94.8 fL (80.0-94.0); MEAN PLATELET VOLUME 9.7 fl (7.4-10.4); MONOCYTES % 10.5 % (2.0-8.0); NEUTROPHILS % 75.9 % (40.0-76.0); PLATELET 121 x1000/uL (130-400); RED BLOOD CELL COUNT 4.91 mill/uL (4.7-6.1); RED CELL DISTRIBUTION WIDTH 16.1 % (11.6-14.6)
[2019-03-12] MEDS: METRONIDAZOLE 500 MG PREMIX 100 ML IV SCH (08:44)
[2019-03-12] MEDS: FAMOTIDINE 20MG TABLET PO SCH (08:47)
[2019-03-12] MEDS: AMLODIPINE 5MG TABLET PO SCH (08:47)
[2019-03-12] MEDS: CARVEDILOL 12.5MG TABLET PO SCH (08:47)
[2019-03-12] MEDS: ASPIRIN 81MG EC TABLET PO SCH (08:47)
[2019-03-12] MEDS: LOSARTAN POTASSIUM 100 MG TABLET PO SCH (08:48)
[2019-03-12] MEDS: ENOXAPARIN 80MG/0.8ML SYR SUBCUT SCH (08:52)
[2019-03-12 10:06] LABS: SACCHAROMYCES CEREVISIAE IGM <20.0 Units (0.0-24.9)
[2019-03-12] MEDS: SODIUM CHLORIDE 0.9% 1,000 ML IV SCH (10:08)
[2019-03-12 15:11] LABS: ATYPICAL pANCA <1:20 titer (Neg:<1:20)
== END 2019-03-12 14:27 | disposition home health service (06) | DRG 389 ==
LOC: ER 05:24 → 3WST 08:52 → EDBEDREQ 08:56 → EDBEDREQTM 08:56 → ENRESERV 09:22 → 3WST 20:41
PROVIDERS: ADMIT Family Medicine Adult Medicine; ATTEND Family Medicine Adult Medicine
DX: K56.7 Ileus, unspecified (principal); N17.9 Acute kidney failure, unspecified; I13.0 Hypertensive heart and chronic kidney disease with heart failure and stage 1 through stage 4 chronic kidney disease, or unspecified chronic kidney disease; I71.4 Abdominal aortic aneurysm, without rupture; K40.90 Unilateral inguinal hernia, without obstruction or gangrene, not specified as recurrent; I25.5 Ischemic cardiomyopathy; E66.9 Obesity, unspecified; I27.20 Pulmonary hypertension, unspecified; I73.9 Peripheral vascular disease, unspecified; K52.9 Noninfective gastroenteritis and colitis, unspecified; E78.00 Pure hypercholesterolemia, unspecified; E78.5 Hyperlipidemia, unspecified; I25.10 Atherosclerotic heart disease of native coronary artery without angina pectoris; I50.9 Heart failure, unspecified; J43.9 Emphysema, unspecified; K42.9 Umbilical hernia without obstruction or gangrene; D69.6 Thrombocytopenia, unspecified; Z95.1 Presence of aortocoronary bypass graft; N18.9 Chronic kidney disease, unspecified; K76.0 Fatty (change of) liver, not elsewhere classified; M16.11 Unilateral primary osteoarthritis, right hip; Q27.2 Other congenital malformations of renal artery; Z82.49 Family history of ischemic heart disease and other diseases of the circulatory system; Z86.79 Personal history of other diseases of the circulatory system; Z68.27 Body mass index [BMI] 27.0-27.9, adult
CPT/HCPCS: 36415; 71045; 71275; 73721; 74018; 74174; 80048; 80076; 80305; 81003; 83605; 83735; 83880; 84100; 84484; 85027; 86256; 86671; 86850; 86900; 93005; 93923; 93970; 97162; 97166; 97530; 97535; 99291; C1893; J0696; J1650; J1956; J2270; J2405; J2543; J2765; J3475; J3490; J7030; Q9967

== ENCOUNTER 2019-03-16 14:54 | Emergency (ER) | payer MEDICARE, MEDICAID ==
[~2019-03-16] VITALS: Ht 177.8 cm; Wt 82.0 kg
[2019-03-16 15:51] LABS: BASOPHILS % 1.1 % (0.0-2.0); EOSINOPHILS % 1.5 % (0.0-5.0); HEMATOCRIT. 48.6 % (42.0-52.0); HEMOGLOBIN. 16.4 g/dL (14.0-18.0); LYMPHOCYTES % 19.7 % (20.0-50.0); MEAN CORPUSCULAR HEMOGLOBIN 31.5 pg (28.0-32.0); MEAN CORPUSCULAR VOLUME 93.5 fL (80.0-94.0); MEAN PLATELET VOLUME 8.9 fl (7.4-10.4); MONOCYTES % 7.8 % (2.0-8.0); NEUTROPHILS % 69.9 % (40.0-76.0); PLATELET 263 x1000/uL (130-400); RED CELL DISTRIBUTION WIDTH 15.5 % (11.6-14.6)
[2019-03-16 15:53] LABS: CHLORIDE 108 mEq/L (98-107)
[2019-03-16 15:55] LABS: PROTHROMBIN TIME 10.3 sec (9.6-11.0)
[2019-03-16] MEDS ORDERED: HYDRALAZINE 20MG/ML VIAL IV ONE (16:45)
[2019-03-16 18:55] VITALS: BP 198/100
[2019-03-16] MEDS ORDERED: IOHEXOL-300 100 ML BOTTLE ONE (20:18)
== END 2019-03-16 18:55 | disposition left against medical advice (07) ==
LOC: ER 14:54
DX: R10.9 Unspecified abdominal pain (principal); R19.7 Diarrhea, unspecified; J44.9 Chronic obstructive pulmonary disease, unspecified; I10 Essential (primary) hypertension; I25.2 Old myocardial infarction; Z98.890 Other specified postprocedural states; Z79.82 Long term (current) use of aspirin; Z79.899 Other long term (current) drug therapy; Z88.8 Allergy status to other drugs, medicaments and biological substances
CPT/HCPCS: 36415; 71045; 80053; 83690; 83880; 84484; 85025; 85610; 93005; 96374; 99284; J0360; Q9967

== ENCOUNTER 2019-03-30 14:06 | Inpatient (IN) | payer MEDICARE, MEDICAID ==
[~2019-03-30] VITALS: Ht 172.7 cm; Wt 77.6 kg
[2019-03-30 15:37] LABS: BASOPHILS % 0.4 % (0.0-2.0); EOSINOPHILS % 0.4 % (0.0-5.0); HEMATOCRIT. 48.8 % (42.0-52.0); HEMOGLOBIN. 16.6 g/dL (14.0-18.0); LYMPHOCYTES % 18.9 % (20.0-50.0); MEAN CORPUSCULAR HEMOGLOBIN 31.7 pg (28.0-32.0); MEAN CORPUSCULAR VOLUME 93.3 fL (80.0-94.0); MEAN PLATELET VOLUME 8.1 fl (7.4-10.4); MONOCYTES % 8.6 % (2.0-8.0); NEUTROPHILS % 71.7 % (40.0-76.0); PLATELET 298 x1000/uL (130-400); RED BLOOD CELL COUNT 5.22 mill/uL (4.7-6.1); RED CELL DISTRIBUTION WIDTH 15.8 % (11.6-14.6)
[2019-03-30 15:40] LABS: CHLORIDE 108 mEq/L (98-107)
[2019-03-30 15:52] LABS: PROTHROMBIN TIME 10.6 sec (9.6-11.0)
[2019-03-30 16:18] LABS: CLARITY URINE CLOUDY (CLEAR); KETONES URINE NEGATIVE (NEGATIVE); LEUKOCYTE ESTERASE URINE TRACE (NEGATIVE); NITRITE URINE NEGATIVE (NEGATIVE); OCCULT BLOOD URINE 3+ (NEGATIVE); PROTEIN URINE 2+ (NEGATIVE); SPECIFIC GRAVITY URINE 1.031 (1.005-1.030); UROBILINOGEN URINE 0.2 E.U./dL (0.2-1.0)
[2019-03-30 16:19] LABS: COLOR URINE BLOODY (YELLOW)
[2019-03-30] MEDS ORDERED: MORPHINE SULFATE 4 MG/ML CPJ (NOT FOR IM USE) IV ONE (16:30)
[2019-03-30] MEDS ORDERED: CEFTRIAXONE 1 G PREMIX 50 ML IV NR (17:30)
[2019-03-30] MEDS ORDERED: ONDANSETRON HCL 4MG/2ML INJ IV PRN (18:00)
[2019-03-30] MEDS ORDERED: IPRATROPIUM/ALBUTEROL 0.5-3(2.5)MG/3ML NEB NEB PRN (18:00)
[2019-03-30] MEDS ORDERED: LORAZEPAM 0.5MG TABLET PO PRN (18:00)
[2019-03-30] MEDS ORDERED: ACETAMINOPHEN 325MG TABLET PO PRN (18:00)
[2019-03-30] MEDS ORDERED: CARVEDILOL 3.125 MG TABLET PO SCH (18:00)
[2019-03-30] MEDS ORDERED: NITROGLYCERIN 0.4MG TABLET SL SL PRN (18:00)
[2019-03-30] MEDS ORDERED: MAGNESIUM/ALUMINUM HYDROXIDE/SIMETHICONE 30ML UDC PO PRN (18:00)
[2019-03-30] MEDS ORDERED: GUAIFENESIN 200MG/10ML SUGAR FREE UDC PO PRN (18:00)
[2019-03-30] MEDS ORDERED: CARVEDILOL 12.5MG TABLET PO NR (18:30)
[2019-03-30] MEDS ORDERED: PANTOPRAZOLE SODIUM 40 MG/VIAL IV SCH (18:30)
[2019-03-30] MEDS: MORPHINE SULFATE 2 MG/ML CPJ (NOT FOR IM USE) IV PRN (20:03)
[2019-03-30] MEDS: CLONIDINE 0.1MG TABLET PO PRN (20:03)
[2019-03-30 21:38] VITALS: BP 174/91
[2019-03-31] VITALS (8 sets, daily range): BP systolic 137–170; BP diastolic 78–91
[2019-03-31 00:46] LABS: CREATINE KINASE MB FRACTION 1.5 ng/mL (0.5-3.6)
[2019-03-31] MEDS: HYDRALAZINE HCL 50MG TABLET PO SCH ×4 (00:53→20:59)
[2019-03-31] MEDS: ZOLPIDEM TARTRATE 5MG TABLET PO PRN ×2 (01:03→23:30)
[2019-03-31] MEDS: MORPHINE SULFATE 2 MG/ML CPJ (NOT FOR IM USE) IV PRN ×2 (01:04→06:15)
[2019-03-31] MEDS ORDERED: CARVEDILOL 3.125 MG TABLET PO SCH (06:00)
[2019-03-31] MEDS: PANTOPRAZOLE SODIUM 40 MG/VIAL IV SCH ×2 (06:01→17:41)
[2019-03-31] MEDS: CARVEDILOL 12.5MG TABLET PO SCH ×2 (06:35→17:42)
[2019-03-31 07:22] LABS: BASOPHILS % 0.3 % (0.0-2.0); EOSINOPHILS % 0.4 % (0.0-5.0); HEMATOCRIT. 43.2 % (42.0-52.0); HEMOGLOBIN. 14.7 g/dL (14.0-18.0); LYMPHOCYTES % 17.7 % (20.0-50.0); MEAN CORPUSCULAR HEMOGLOBIN 31.6 pg (28.0-32.0); MEAN CORPUSCULAR VOLUME 93.2 fL (80.0-94.0); MEAN PLATELET VOLUME 8.5 fl (7.4-10.4); MONOCYTES % 10.7 % (2.0-8.0); NEUTROPHILS % 70.9 % (40.0-76.0); PLATELET 253 x1000/uL (130-400); RED BLOOD CELL COUNT 4.64 mill/uL (4.7-6.1); RED CELL DISTRIBUTION WIDTH 16.1 % (11.6-14.6)
[2019-03-31 07:34] LABS: CREATINE KINASE MB FRACTION 1.1 ng/mL (0.5-3.6)
[2019-03-31] MEDS ORDERED: CEFTRIAXONE 1 G PREMIX 50 ML IV SCH (09:00)
[2019-03-31] MEDS: AMLODIPINE 10MG TABLET PO SCH (09:50)
[2019-03-31] MEDS: CLONIDINE 0.1MG TABLET PO PRN (11:58)
[2019-03-31] MEDS: TRAMADOL 50MG TABLET PO PRN ×2 (11:59→20:04)
[2019-03-31] MEDS: CEFTRIAXONE 1,000 MG in DEXTROSE 5% WATER 50 ML IV SCH (17:41)
[2019-03-31] MEDS ORDERED: INFLUENZA VIRUS VACCINE(AFLURIA) 0.5ML SYR IM ONE (20:45)
[2019-04-01] VITALS: BP 154/86
[2019-04-01] MEDS: TRAMADOL 50MG TABLET PO PRN ×2 (03:55→20:57)
[2019-04-01 04:00] VITALS: BP 169/95
[2019-04-01] MEDS: PANTOPRAZOLE SODIUM 40 MG/VIAL IV SCH ×2 (06:52→17:09)
[2019-04-01] MEDS: CARVEDILOL 12.5MG TABLET PO SCH ×2 (07:00→17:16)
[2019-04-01] MEDS: DOCUSATE SODIUM 100MG CAPSULE PO PRN (07:00)
[2019-04-01] MEDS: HYDRALAZINE HCL 50MG TABLET PO SCH ×3 (07:00→20:54)
[2019-04-01 08:00] VITALS: BP 148/78
[2019-04-01] MEDS: AMLODIPINE 10MG TABLET PO SCH (08:43)
[2019-04-01 11:59] VITALS: BP_SYST 130; BP_SYST 150; BP_DIAS 80; BP_DIAS 83
[2019-04-01] MEDS: HYDROCODONE/ACETAMINOPHEN 10/325MG TABLET PO PRN (12:22)
[2019-04-01 16:00] VITALS: BP 166/96
[2019-04-01] MEDS: CEFTRIAXONE 1,000 MG in DEXTROSE 5% WATER 50 ML IV SCH (17:16)
[2019-04-01 20:00] VITALS: BP 163/95
[2019-04-01] MEDS: CLONIDINE 0.1MG TABLET PO PRN (20:54)
[2019-04-01] MEDS: ZOLPIDEM TARTRATE 5MG TABLET PO PRN (23:42)
[2019-04-02] VITALS: BP 160/98
[2019-04-02 04:00] VITALS: BP_SYST 160; BP_SYST 164; BP_DIAS 91
[2019-04-02] MEDS: TRAMADOL 50MG TABLET PO PRN ×2 (05:36→13:31)
[2019-04-02] MEDS: PANTOPRAZOLE SODIUM 40 MG/VIAL IV SCH ×2 (05:54→17:18)
[2019-04-02] MEDS: CARVEDILOL 12.5MG TABLET PO SCH ×2 (05:55→17:21)
[2019-04-02] MEDS: HYDRALAZINE HCL 50MG TABLET PO SCH ×3 (05:56→20:57)
[2019-04-02 07:08] LABS: BASOPHILS % 0.3 % (0.0-2.0); CHLORIDE 104 mEq/L (98-107); EOSINOPHILS % 0.3 % (0.0-5.0); HEMATOCRIT. 44.3 % (42.0-52.0); HEMOGLOBIN. 14.9 g/dL (14.0-18.0); MEAN CORPUSCULAR HEMOGLOBIN 31.5 pg (28.0-32.0); MEAN CORPUSCULAR VOLUME 93.5 fL (80.0-94.0); MEAN PLATELET VOLUME 8.5 fl (7.4-10.4); MONOCYTES % 11.2 % (2.0-8.0); NEUTROPHILS % 74.2 % (40.0-76.0); PLATELET 213 x1000/uL (130-400); RED BLOOD CELL COUNT 4.73 mill/uL (4.7-6.1); RED CELL DISTRIBUTION WIDTH 15.9 % (11.6-14.6)
[2019-04-02 08:00] VITALS: BP 154/79
[2019-04-02] MEDS: AMLODIPINE 10MG TABLET PO SCH (08:29)
[2019-04-02] MEDS: DOCUSATE SODIUM 100MG CAPSULE PO PRN (08:30)
[2019-04-02 12:00] VITALS: BP 154/86
[2019-04-02 16:00] VITALS: BP 165/85
[2019-04-02] MEDS: CEFTRIAXONE 1,000 MG in DEXTROSE 5% WATER 50 ML IV SCH (17:18)
[2019-04-02 20:44] VITALS: BP 163/90
[2019-04-02] MEDS: HYDROCODONE/ACETAMINOPHEN 10/325MG TABLET PO PRN (20:57)
[2019-04-02] MEDS: ZOLPIDEM TARTRATE 5MG TABLET PO PRN (22:58)
[2019-04-03] VITALS: BP 138/70
[2019-04-03] MEDS: HYDROCODONE/ACETAMINOPHEN 10/325MG TABLET PO PRN (03:32)
[2019-04-03] MEDS: CLONIDINE 0.1MG TABLET PO PRN (03:33)
[2019-04-03 04:00] VITALS: BP 171/93
[2019-04-03] MEDS: HYDRALAZINE HCL 50MG TABLET PO SCH ×2 (05:39→13:48)
[2019-04-03] MEDS: PANTOPRAZOLE SODIUM 40 MG/VIAL IV SCH (05:40)
[2019-04-03] MEDS: CARVEDILOL 12.5MG TABLET PO SCH (05:45)
[2019-04-03 08:00] VITALS: BP 148/92
[2019-04-03] MEDS: TRAMADOL 50MG TABLET PO PRN (08:29)
[2019-04-03] MEDS: AMLODIPINE 10MG TABLET PO SCH (08:30)
[2019-04-03] MEDS ORDERED: LACTULOSE 20G/30ML UDC PO SCH (09:00)
[2019-04-03] MEDS ORDERED: DOCUSATE SODIUM 250MG CAPSULE PO SCH (09:00)
[2019-04-03] MEDS ORDERED: MINERAL OIL ENEMA 133ML PR SCH (10:00)
[2019-04-03 12:00] VITALS: BP 145/84
[2019-04-03 14:25] VITALS: BP 145/84
[2019-04-03] MEDS ORDERED: CEFTRIAXONE 1 G PREMIX 50 ML IV SCH (18:00)
== END 2019-04-03 15:48 | disposition home or self-care (01) | DRG 378 ==
LOC: ER 14:06 → 8WST 17:45 → SUPCPDRO 17:54 → EDBEDREQ 17:54 → ENRESERV 19:42 → 8WST 22:40
PROVIDERS: ADMIT Internal Medicine; ATTEND Internal Medicine
DX: K92.2 Gastrointestinal hemorrhage, unspecified (principal); N39.0 Urinary tract infection, site not specified; R79.89 Other specified abnormal findings of blood chemistry; I10 Essential (primary) hypertension; E11.9 Type 2 diabetes mellitus without complications; Z88.8 Allergy status to other drugs, medicaments and biological substances; J44.9 Chronic obstructive pulmonary disease, unspecified; I71.4 Abdominal aortic aneurysm, without rupture; K40.90 Unilateral inguinal hernia, without obstruction or gangrene, not specified as recurrent; I25.2 Old myocardial infarction; Z95.1 Presence of aortocoronary bypass graft; F17.210 Nicotine dependence, cigarettes, uncomplicated; R31.9 Hematuria, unspecified; Z86.79 Personal history of other diseases of the circulatory system; Z79.01 Long term (current) use of anticoagulants; Z79.899 Other long term (current) drug therapy; Z79.82 Long term (current) use of aspirin
CPT/HCPCS: 36415; 71045; 71250; 74176; 80048; 80061; 81003; 82550; 82553; 83036; 83880; 84484; 86850; 86900; 90686; 93970; 96365; 99285; C9113; J0696; J2270; J2405; J7060

== ENCOUNTER 2019-07-03 06:21 | Inpatient (IN) | payer MEDICARE, MEDICAID ==
[~2019-07-03] VITALS: Ht 167.6 cm; Wt 75.7 kg
[~2019-07-03 06:21] MED LIST changes: -ASPI-1393 PO; +ASPI-1497 PO
[2019-07-03] MEDS ORDERED: IPRATROPIUM BROMIDE (0.02%) 0.5MG/2.5ML NEB HHN STA (09:00)
[2019-07-03] MEDS ORDERED: ALBUTEROL (0.083%) 2.5MG/3ML NEB HHN STA (09:00)
[2019-07-03 09:39] LABS: BASOPHILS % 0.7 % (0.0-2.0); EOSINOPHILS % 1.2 % (0.0-5.0); HEMATOCRIT. 42.3 % (42.0-52.0); LYMPHOCYTES % 11.8 % (20.0-50.0); MEAN CORPUSCULAR HEMOGLOBIN 32.1 pg (28.0-32.0); MEAN CORPUSCULAR VOLUME 97.1 fL (80.0-94.0); MEAN PLATELET VOLUME 9.6 fl (7.4-10.4); MONOCYTES % 5.4 % (2.0-8.0); NEUTROPHILS % 80.9 % (40.0-76.0); PLATELET 235 x1000/uL (130-400); RED BLOOD CELL COUNT 4.36 mill/uL (4.7-6.1); RED CELL DISTRIBUTION WIDTH 16.7 % (11.6-14.6)
[2019-07-03 09:46] LABS: CHLORIDE 115 mEq/L (98-107)
[2019-07-03] MEDS ORDERED: FUROSEMIDE 40MG/4ML VIAL IVP ONE (11:15)
[2019-07-03] MEDS ORDERED: IPRATROPIUM/ALBUTEROL 0.5-3(2.5)MG/3ML NEB HHN PRN ×2 (12:45→15:30)
[2019-07-03] MEDS ORDERED: ACETAMINOPHEN 325MG TABLET PO PRN (12:45)
[2019-07-03] MEDS ORDERED: ONDANSETRON HCL 4MG/2ML INJ IV PRN (12:45)
[2019-07-03] MEDS ORDERED: ASPIRIN 81MG TABLET PO SCH (13:10)
[2019-07-03] MEDS: FUROSEMIDE 40MG/4ML VIAL IVP SCH (13:13)
[2019-07-03] MEDS ORDERED: AMLODIPINE 2.5MG TABLET PO NR (13:15)
[2019-07-03] MEDS ORDERED: LOSARTAN POTASSIUM 25 MG TABLET PO NR (13:15)
[2019-07-03 14:00] VITALS: BP 195/92
[2019-07-03] MEDS: AMLODIPINE 5MG TABLET PO SCH (14:03)
[2019-07-03 15:00] VITALS: BP 158/82
[2019-07-03] MEDS ORDERED: GUAIFENESIN/DM 600MG/30MG ER TAB 12HR PO PRN (15:30)
[2019-07-03 16:00] VITALS: BP 167/84
[2019-07-03] MEDS: PREDNISONE 20MG TABLET PO SCH (16:51)
[2019-07-03] MEDS: MONTELUKAST SODIUM 10MG TABLET PO SCH (16:51)
[2019-07-03] MEDS: NYSTATIN 100,000 UNITS/ML 5ML UDC SSW SCH ×2 (16:51→22:38)
[2019-07-03] MEDS: HYDRALAZINE HCL 50MG TABLET PO SCH (16:51)
[2019-07-03 17:42] VITALS: BP 149/82
[2019-07-03 20:00] VITALS: BP 176/92
[2019-07-03] MEDS: ATORVASTATIN CALCIUM 20MG TABLET PO SCH (22:37)
[2019-07-03] MEDS: LOSARTAN POTASSIUM 50 MG TABLET PO SCH (22:37)
[2019-07-03] MEDS: HEPARIN 5000 UNITS/ML VIAL SUBCUT SCH (22:38)
[2019-07-03] MEDS: FLUTICASONE PROPIONATE 50MCG/SPRAY BOTTLE BOTHNSTRLS SCH (22:38)
[2019-07-04] VITALS: BP 168/88
[2019-07-04] MEDS: IPRATROPIUM/ALBUTEROL 0.5-3(2.5)MG/3ML NEB HHN SCH ×4 (02:04→21:07)
[2019-07-04 04:00] VITALS: BP 154/82
[2019-07-04 07:07] LABS: BASOPHILS % 0.4 % (0.0-2.0); EOSINOPHILS % 0.4 % (0.0-5.0); HEMATOCRIT. 42.5 % (42.0-52.0); HEMOGLOBIN. 14.7 g/dL (14.0-18.0); LYMPHOCYTES % 13.5 % (20.0-50.0); MEAN CORPUSCULAR HEMOGLOBIN 32.8 pg (28.0-32.0); MEAN CORPUSCULAR VOLUME 95.2 fL (80.0-94.0); MEAN PLATELET VOLUME 9.2 fl (7.4-10.4); MONOCYTES % 6.6 % (2.0-8.0); NEUTROPHILS % 79.1 % (40.0-76.0); PLATELET 216 x1000/uL (130-400); RED BLOOD CELL COUNT 4.47 mill/uL (4.7-6.1); RED CELL DISTRIBUTION WIDTH 16.4 % (11.6-14.6)
[2019-07-04 08:00] VITALS: BP 179/80
[2019-07-04 08:38] LABS: CHLORIDE 108 mEq/L (98-107)
[2019-07-04] MEDS ORDERED: LOSARTAN POTASSIUM 25 MG TABLET PO SCH (09:00)
[2019-07-04] MEDS ORDERED: AMLODIPINE 2.5MG TABLET PO SCH (09:00)
[2019-07-04] MEDS: NYSTATIN 100,000 UNITS/ML 5ML UDC SSW SCH ×4 (09:05→21:10)
[2019-07-04] MEDS: PREDNISONE 20MG TABLET PO SCH (09:06)
[2019-07-04] MEDS: AMLODIPINE 5MG TABLET PO SCH (09:06)
[2019-07-04] MEDS: FUROSEMIDE 40MG/4ML VIAL IVP SCH (09:07)
[2019-07-04] MEDS: HYDRALAZINE HCL 50MG TABLET PO SCH ×4 (09:07→17:09)
[2019-07-04] MEDS: LOSARTAN POTASSIUM 50 MG TABLET PO SCH ×2 (09:07→21:10)
[2019-07-04] MEDS: FLUTICASONE PROPIONATE 50MCG/SPRAY BOTTLE BOTHNSTRLS SCH ×2 (09:07→21:21)
[2019-07-04] MEDS: HEPARIN 5000 UNITS/ML VIAL SUBCUT SCH ×2 (09:08→21:11)
[2019-07-04 12:00] VITALS: BP 148/82
[2019-07-04] MEDS: AMLODIPINE 10MG TABLET PO SCH (12:38)
[2019-07-04 16:00] VITALS: BP 157/89
[2019-07-04] MEDS: MONTELUKAST SODIUM 10MG TABLET PO SCH (17:09)
[2019-07-04 20:00] VITALS: BP 151/97
[2019-07-04] MEDS: ATORVASTATIN CALCIUM 20MG TABLET PO SCH (21:11)
[2019-07-05] VITALS: BP 165/87
[2019-07-05] MEDS: IPRATROPIUM/ALBUTEROL 0.5-3(2.5)MG/3ML NEB HHN SCH ×4 (01:00→21:53)
[2019-07-05 03:41] VITALS: BP 164/89
[2019-07-05 05:55] VITALS: BP 141/72
[2019-07-05 06:51] LABS: BASOPHILS % 0.4 % (0.0-2.0); EOSINOPHILS % 0.9 % (0.0-5.0); HEMATOCRIT. 45.2 % (42.0-52.0); HEMOGLOBIN. 15.3 g/dL (14.0-18.0); MEAN CORPUSCULAR HEMOGLOBIN 32.2 pg (28.0-32.0); MEAN CORPUSCULAR VOLUME 95.4 fL (80.0-94.0); MEAN PLATELET VOLUME 8.9 fl (7.4-10.4); MONOCYTES % 7.2 % (2.0-8.0); NEUTROPHILS % 72.5 % (40.0-76.0); PLATELET 232 x1000/uL (130-400); RED BLOOD CELL COUNT 4.74 mill/uL (4.7-6.1); RED CELL DISTRIBUTION WIDTH 16.4 % (11.6-14.6)
[2019-07-05 08:29] LABS: CHLORIDE 106 mEq/L (98-107)
[2019-07-05] MEDS: NYSTATIN 100,000 UNITS/ML 5ML UDC SSW SCH ×4 (09:19→21:39)
[2019-07-05] MEDS: FLUTICASONE PROPIONATE 50MCG/SPRAY BOTTLE BOTHNSTRLS SCH ×2 (09:19→21:40)
[2019-07-05] MEDS: FUROSEMIDE 40MG/4ML VIAL IVP SCH (09:19)
[2019-07-05] MEDS: HEPARIN 5000 UNITS/ML VIAL SUBCUT SCH ×2 (09:19→21:40)
[2019-07-05] MEDS: HYDRALAZINE HCL 50MG TABLET PO SCH ×3 (09:20→16:15)
[2019-07-05] MEDS: AMLODIPINE 10MG TABLET PO SCH (09:21)
[2019-07-05] MEDS: PREDNISONE 20MG TABLET PO SCH (09:21)
[2019-07-05] MEDS: NEBIVOLOL HCL 5 MG TABLET PO SCH (09:21)
[2019-07-05] MEDS: LOSARTAN POTASSIUM 50 MG TABLET PO SCH ×2 (09:21→21:43)
[2019-07-05 12:00] VITALS: BP 142/87
[2019-07-05] MEDS ORDERED: POTASSIUM CHLORIDE 20MEQ/PACKET PO NR (13:30)
[2019-07-05 16:00] VITALS: BP 126/80
[2019-07-05] MEDS: MONTELUKAST SODIUM 10MG TABLET PO SCH (16:08)
[2019-07-05 20:00] VITALS: BP 152/87
[2019-07-05] MEDS: ATORVASTATIN CALCIUM 20MG TABLET PO SCH (21:39)
[2019-07-06] VITALS (7 sets, daily range): BP systolic 108–175; BP diastolic 54–104
[2019-07-06] MEDS: IPRATROPIUM/ALBUTEROL 0.5-3(2.5)MG/3ML NEB HHN SCH ×4 (01:18→21:46)
[2019-07-06 07:11] LABS: CHLORIDE 108 mEq/L (98-107)
[2019-07-06 07:46] LABS: BASOPHILS % 0.5 % (0.0-2.0); EOSINOPHILS % 1.2 % (0.0-5.0); HEMOGLOBIN. 15.5 g/dL (14.0-18.0); LYMPHOCYTES % 21.8 % (20.0-50.0); MEAN CORPUSCULAR VOLUME 98.9 fL (80.0-94.0); MEAN PLATELET VOLUME 8.9 fl (7.4-10.4); MONOCYTES % 9.3 % (2.0-8.0); NEUTROPHILS % 67.2 % (40.0-76.0); PLATELET 216 x1000/uL (130-400); RED BLOOD CELL COUNT 4.85 mill/uL (4.7-6.1); RED CELL DISTRIBUTION WIDTH 16.7 % (11.6-14.6)
[2019-07-06] MEDS: FLUTICASONE PROPIONATE 50MCG/SPRAY BOTTLE BOTHNSTRLS SCH ×2 (08:49→20:26)
[2019-07-06] MEDS: HYDRALAZINE HCL 50MG TABLET PO SCH ×3 (08:50→17:59)
[2019-07-06] MEDS: LOSARTAN POTASSIUM 50 MG TABLET PO SCH ×2 (08:50→20:27)
[2019-07-06] MEDS: NEBIVOLOL HCL 5 MG TABLET PO SCH (08:50)
[2019-07-06] MEDS: PREDNISONE 20MG TABLET PO SCH (08:50)
[2019-07-06] MEDS: AMLODIPINE 10MG TABLET PO SCH (08:50)
[2019-07-06] MEDS: HEPARIN 5000 UNITS/ML VIAL SUBCUT SCH ×2 (08:50→20:27)
[2019-07-06] MEDS: FUROSEMIDE 40MG/4ML VIAL IVP SCH (08:51)
[2019-07-06] MEDS: NYSTATIN 100,000 UNITS/ML 5ML UDC SSW SCH ×4 (08:51→20:26)
[2019-07-06] MEDS ORDERED: BUDESONIDE 0.5MG/2ML NEB HHN SCH (11:00)
[2019-07-06] MEDS: MONTELUKAST SODIUM 10MG TABLET PO SCH (17:59)
[2019-07-06] MEDS: ATORVASTATIN CALCIUM 20MG TABLET PO SCH (20:27)
[2019-07-07] VITALS: BP 158/94
[2019-07-07 01:09] VITALS: BP 140/83
[2019-07-07] MEDS: IPRATROPIUM/ALBUTEROL 0.5-3(2.5)MG/3ML NEB HHN SCH (02:10)
[2019-07-07 04:00] VITALS: BP 134/86
[2019-07-07 08:25] VITALS: BP 162/78
[2019-07-07] MEDS: NYSTATIN 100,000 UNITS/ML 5ML UDC SSW SCH (08:53)
[2019-07-07] MEDS: AMLODIPINE 10MG TABLET PO SCH (08:53)
[2019-07-07] MEDS: HEPARIN 5000 UNITS/ML VIAL SUBCUT SCH (08:54)
[2019-07-07] MEDS: NEBIVOLOL HCL 5 MG TABLET PO SCH (08:54)
[2019-07-07] MEDS: LOSARTAN POTASSIUM 50 MG TABLET PO SCH (08:54)
[2019-07-07] MEDS: HYDRALAZINE HCL 50MG TABLET PO SCH (08:54)
[2019-07-07] MEDS: FUROSEMIDE 40MG/4ML VIAL IVP SCH (08:55)
== END 2019-07-07 13:19 | disposition home or self-care (01) | DRG 196 ==
LOC: ER 06:21 → 5WST 12:15 → EDBEDREQ 12:17 → EDBEDREQTM 12:17 → ENRESERV 12:28
PROVIDERS: ADMIT Internal Medicine; ATTEND Internal Medicine
DX: J84.9 Interstitial pulmonary disease, unspecified (principal); I50.43 Acute on chronic combined systolic (congestive) and diastolic (congestive) heart failure; J96.00 Acute respiratory failure, unspecified whether with hypoxia or hypercapnia; I13.0 Hypertensive heart and chronic kidney disease with heart failure and stage 1 through stage 4 chronic kidney disease, or unspecified chronic kidney disease; J44.1 Chronic obstructive pulmonary disease with (acute) exacerbation; B37.0 Candidal stomatitis; E11.22 Type 2 diabetes mellitus with diabetic chronic kidney disease; E11.51 Type 2 diabetes mellitus with diabetic peripheral angiopathy without gangrene; E78.5 Hyperlipidemia, unspecified; I25.10 Atherosclerotic heart disease of native coronary artery without angina pectoris; I27.20 Pulmonary hypertension, unspecified; I70.0 Atherosclerosis of aorta; I70.201 Unspecified atherosclerosis of native arteries of extremities, right leg; N18.9 Chronic kidney disease, unspecified; Z86.79 Personal history of other diseases of the circulatory system; Z87.891 Personal history of nicotine dependence; Z95.1 Presence of aortocoronary bypass graft; Z95.5 Presence of coronary angioplasty implant and graft; Z87.01 Personal history of pneumonia (recurrent); Z88.8 Allergy status to other drugs, medicaments and biological substances; Z79.899 Other long term (current) drug therapy; Z79.82 Long term (current) use of aspirin; Z82.49 Family history of ischemic heart disease and other diseases of the circulatory system; Z71.6 Tobacco abuse counseling
CPT/HCPCS: 36415; 71045; 80048; 80053; 82962; 83735; 83880; 84443; 84484; 85025; 93005; 93306; 93970; 94618; 94640; 96374; 96376; 97161; 99285; J1644; J1940; J7512; J7611; J7620; J7626

== ENCOUNTER 2020-06-18 06:11 | Inpatient (IN) | payer BC, MEDICAID ==
[~2020-06-18] VITALS: Ht 322.6 cm; Wt 81.6 kg
[~2020-06-18 06:11] MED LIST changes: -CARV25TA47 PO
[2020-06-18] MEDS ORDERED: METHYLPREDNISOLONE SOD SUCC 125 MG/2 ML VIAL IV STA (06:16)
[2020-06-18] MEDS ORDERED: NITROGLYCERIN OINT 1GM/INCH UDPKT TD ONE (06:30)
[2020-06-18 07:32] LABS: BASOPHILS % 0.7 % (0.0-2.0); EOSINOPHILS % 1.8 % (0.0-5.0); HEMATOCRIT. 48.9 % (42.0-52.0); HEMOGLOBIN. 15.9 g/dL (14.0-18.0); LYMPHOCYTES % 11.2 % (20.0-50.0); MEAN CORPUSCULAR HEMOGLOBIN 28.8 pg (28.0-32.0); MEAN CORPUSCULAR VOLUME 88.5 fL (80.0-94.0); MEAN PLATELET VOLUME 8.9 fl (7.4-10.4); MONOCYTES % 5.3 % (2.0-8.0); PLATELET 218 x1000/uL (130-400); RED BLOOD CELL COUNT 5.52 mill/uL (4.7-6.1); RED CELL DISTRIBUTION WIDTH 16.7 % (11.6-14.6)
[2020-06-18 07:37] LABS: CHLORIDE 110 mEq/L (98-107)
[2020-06-18] MEDS ORDERED: ASPIRIN 325MG EC TABLET PO ONE (09:00)
[2020-06-18] MEDS ORDERED: LABETALOL 5MG/ML SYR 20 MG/4 ML SYRINGE IV NR (10:30)
[2020-06-18] MEDS ORDERED: CEFTRIAXONE 1 G PREMIX 50 ML IV SCH (11:00)
[2020-06-18] MEDS ORDERED: MORPHINE SULFATE 2 MG/ML CPJ (NOT FOR IM USE) IV PRN (11:45)
[2020-06-18] MEDS ORDERED: DIPHENHYDRAMINE 50MG/ML VIAL IV PRN (11:45)
[2020-06-18] MEDS ORDERED: ACETAMINOPHEN 325MG TABLET PO PRN (11:45)
[2020-06-18] MEDS ORDERED: ONDANSETRON HCL 4MG/2ML INJ IV PRN (11:45)
[2020-06-18] MEDS ORDERED: AZITHROMYCIN 500 MG in DEXT 5% WATER 250 ML IV SCH (12:00)
[2020-06-18] MEDS ORDERED: ENOXAPARIN 40MG/0.4ML SYR SUBCUT SCH (13:00)
[2020-06-18 14:02] LABS: D-DIMER 4.75 mg/L FEU (<0.50)
[2020-06-18] MEDS: LOSARTAN POTASSIUM 50 MG TABLET PO SCH (15:00)
[2020-06-18] MEDS: FUROSEMIDE 40MG/4ML VIAL IVP SCH (17:15)
[2020-06-18] MEDS ORDERED: CARVEDILOL 3.125 MG TABLET PO SCH (21:00)
[2020-06-18] MEDS: ATORVASTATIN CALCIUM 20MG TABLET PO SCH (23:15)
[2020-06-19] MEDS ORDERED: DEXTROSE 50% WATER 50ML SYRINGE IV PRN (02:00)
[2020-06-19] MEDS: CLONIDINE 0.1MG TABLET PO PRN (04:52)
[2020-06-19] MEDS: BLOOD SUGAR DIAGNOSTIC STRIP TEST SCH ×4 (06:25→21:00)
[2020-06-19] MEDS: INSULIN LISPRO (LOW DOSE) 100 UNITS/ML SUBCUT SCH ×4 (06:25→21:00)
[2020-06-19 07:05] LABS: CHLORIDE 108 mEq/L (98-107)
[2020-06-19] MEDS: FUROSEMIDE 40MG/4ML VIAL IVP SCH ×2 (07:13→17:27)
[2020-06-19 07:14] LABS: HEMOGLOBIN. 15.7 g/dL (14.0-18.0); LDL CHOLESTEROL 109 mg/dL (5-100); MEAN CORPUSCULAR HEMOGLOBIN 29.3 pg (28.0-32.0); MEAN CORPUSCULAR VOLUME 87.7 fL (80.0-94.0); MEAN PLATELET VOLUME 8.9 fl (7.4-10.4); PLATELET 221 x1000/uL (130-400); RED BLOOD CELL COUNT 5.36 mill/uL (4.7-6.1); RED CELL DISTRIBUTION WIDTH 16.4 % (11.6-14.6)
[2020-06-19 07:17] LABS: HDL CHOLESTEROL 62 mg/dL (40-59)
[2020-06-19] MEDS: ENOXAPARIN 40MG/0.4ML SYR SUBCUT SCH (09:00)
[2020-06-19] MEDS: DEXAMETHASONE 10 MG/ML VIAL IV SCH (09:00)
[2020-06-19] MEDS: LOSARTAN POTASSIUM 50 MG TABLET PO SCH (09:00)
[2020-06-19] MEDS: ASPIRIN 81MG TABLET PO SCH (09:00)
[2020-06-19] MEDS ORDERED: AMLODIPINE 5MG TABLET PO SCH (09:45)
[2020-06-19] MEDS ORDERED: CEFTRIAXONE 1 G PREMIX 50 ML IV SCH (11:45)
[2020-06-19] MEDS ORDERED: AZITHROMYCIN 500 MG in DEXT 5% WATER 250 ML IV SCH (12:00)
[2020-06-19 13:53] LABS: NUCLEATED RED BLOOD CELLS 1 /100 WBC; PLATELET ESTIMATE NORMAL
[2020-06-19 15:31] LABS: BG BASE EXCESS -1.1 mmol/L (-2.0-2.0); BG CARBOXYHEMOGLOBIN 1.1 % (0.5-1.5); BG DEOXYHEMOGLOBIN 5.8 % (0.0-5.0); BG HCO3 ACT 23.2 mmol/L (22.0-26.0); BG METHEMOGLOBIN 0.1 % (0.0-1.5); BG OXYGEN SATURATION 94.1 % (92.0-98.5); BG PCO2 37.7 mmHg (35.0-45.0); BG PH 7.407 (7.350-7.450); BG PO2 70.3 mmHg (75.0-100.0); BG SAMPLE SITE RIGHT RADIAL; BG TOTAL HEMOGLOBIN 16.6 g/dL (12.0-18.0); BG VENT MODE NASAL CANNULA
[2020-06-19 16:00] VITALS: BP_SYST 154; BP_SYST 207; BP_DIAS 84
[2020-06-19] MEDS ORDERED: CARV25TA47 MT (19:00)
[2020-06-19] MEDS ORDERED: CLOP75TA15 PO (19:00)
[2020-06-19] MEDS ORDERED: ALBU05 NEB (19:00)
[2020-06-19 20:00] VITALS: BP 151/73
[2020-06-19] MEDS ORDERED: PNEUMOCOCCAL 23-VAL P-SAC VAC 0.5 ML IM ONE (21:00)
[2020-06-20] VITALS: BP 140/76
[2020-06-20] MEDS: CARVEDILOL 6.25 MG TABLET PO SCH ×3 (01:13→21:40)
[2020-06-20] MEDS: ATORVASTATIN CALCIUM 20MG TABLET PO SCH ×2 (01:13→21:40)
[2020-06-20 04:00] VITALS: BP 153/84
[2020-06-20 06:27] LABS: HEMATOCRIT. 47.6 % (42.0-52.0); HEMOGLOBIN. 15.7 g/dL (14.0-18.0); LYMPHOCYTES % 10.2 % (20.0-50.0); MEAN CORPUSCULAR HEMOGLOBIN 29.4 pg (28.0-32.0); MEAN CORPUSCULAR VOLUME 89.1 fL (80.0-94.0); MEAN PLATELET VOLUME 9.4 fl (7.4-10.4); MONOCYTES % 5.3 % (2.0-8.0); NEUTROPHILS % 84.5 % (40.0-76.0); PLATELET 217 x1000/uL (130-400); RED BLOOD CELL COUNT 5.34 mill/uL (4.7-6.1); RED CELL DISTRIBUTION WIDTH 16.8 % (11.6-14.6)
[2020-06-20] MEDS: BLOOD SUGAR DIAGNOSTIC STRIP TEST SCH ×4 (06:40→21:34)
[2020-06-20] MEDS: INSULIN LISPRO (LOW DOSE) 100 UNITS/ML SUBCUT SCH ×4 (06:40→22:04)
[2020-06-20] MEDS: FUROSEMIDE 40MG/4ML VIAL IVP SCH ×2 (07:01→18:46)
[2020-06-20 08:00] VITALS: BP 157/89
[2020-06-20 09:12] LABS: CHLORIDE 102 mEq/L (98-107)
[2020-06-20] MEDS: AMLODIPINE 5MG TABLET PO SCH ×2 (10:13→21:39)
[2020-06-20] MEDS: ASPIRIN 81MG TABLET PO SCH (10:14)
[2020-06-20] MEDS: LOSARTAN POTASSIUM 50 MG TABLET PO SCH (10:14)
[2020-06-20] MEDS: ENOXAPARIN 40MG/0.4ML SYR SUBCUT SCH (10:14)
[2020-06-20] MEDS: DEXAMETHASONE 10 MG/ML VIAL IV SCH (10:15)
[2020-06-20] MEDS: CEFTRIAXONE 1,000 MG in DEXTROSE 5% WATER 50 ML IV SCH (10:43)
[2020-06-20] MEDS: AZITHROMYCIN 500 MG in DEXT 5% WATER 250 ML IV SCH (12:56)
[2020-06-21] MEDS: FUROSEMIDE 40MG/4ML VIAL IVP SCH ×2 (06:17→17:23)
[2020-06-21] MEDS: BLOOD SUGAR DIAGNOSTIC STRIP TEST SCH ×3 (06:18→16:58)
[2020-06-21] MEDS: CLONIDINE 0.1MG TABLET PO PRN (06:18)
[2020-06-21 06:22] LABS: BASOPHILS % 0.1 % (0.0-2.0); HEMATOCRIT. 49.1 % (42.0-52.0); HEMOGLOBIN. 16.2 g/dL (14.0-18.0); LYMPHOCYTES % 8.3 % (20.0-50.0); MEAN CORPUSCULAR HEMOGLOBIN 29.3 pg (28.0-32.0); MONOCYTES % 4.8 % (2.0-8.0); NEUTROPHILS % 86.8 % (40.0-76.0); PLATELET 214 x1000/uL (130-400); RED BLOOD CELL COUNT 5.52 mill/uL (4.7-6.1); RED CELL DISTRIBUTION WIDTH 16.3 % (11.6-14.6)
[2020-06-21 06:41] LABS: CHLORIDE 102 mEq/L (98-107)
[2020-06-21] MEDS: INSULIN LISPRO (LOW DOSE) 100 UNITS/ML SUBCUT SCH ×3 (06:52→17:23)
[2020-06-21 07:47] VITALS: BP 150/79
[2020-06-21] MEDS: ASPIRIN 81MG TABLET PO SCH (09:12)
[2020-06-21] MEDS: CARVEDILOL 6.25 MG TABLET PO SCH (09:12)
[2020-06-21] MEDS: DEXAMETHASONE 10 MG/ML VIAL IV SCH (09:13)
[2020-06-21] MEDS: AMLODIPINE 5MG TABLET PO SCH (09:13)
[2020-06-21] MEDS: LOSARTAN POTASSIUM 50 MG TABLET PO SCH (09:13)
[2020-06-21] MEDS: ENOXAPARIN 40MG/0.4ML SYR SUBCUT SCH (09:13)
[2020-06-21] MEDS: CEFTRIAXONE 1,000 MG in DEXTROSE 5% WATER 50 ML IV SCH (11:23)
[2020-06-21 11:42] VITALS: BP 145/81
[2020-06-21] MEDS ORDERED: COR6 PO (12:14)
[2020-06-21] MEDS ORDERED: AZIT500T8 MT (12:14)
[2020-06-21] MEDS ORDERED: FURO40TA5 MT (12:14)
[2020-06-21] MEDS: AZITHROMYCIN 500 MG in DEXT 5% WATER 250 ML IV SCH (12:43)
[2020-06-21 16:00] VITALS: BP 162/84
[2020-06-21 16:49] VITALS: BP 162/84
== END 2020-06-21 18:58 | disposition home or self-care (01) | DRG 871 ==
LOC: ER 06:11 → MICUSO 22:33 → 8WST 06-19 13:45
PROVIDERS: ADMIT Internal Medicine; ATTEND Internal Medicine
PROC: 5A09457 Assistance with Respiratory Ventilation, 24-96 Consecutive Hours, Continuous Positive Airway Pressure (ICD-10-PCS; principal; 2020-06-18)
DX: A41.89 Other specified sepsis (principal); U07.1 COVID-19; J96.01 Acute respiratory failure with hypoxia; J12.82 Pneumonia due to coronavirus disease 2019; I50.43 Acute on chronic combined systolic (congestive) and diastolic (congestive) heart failure; I21.4 Non-ST elevation (NSTEMI) myocardial infarction; J44.0 Chronic obstructive pulmonary disease with (acute) lower respiratory infection; J44.1 Chronic obstructive pulmonary disease with (acute) exacerbation; I16.0 Hypertensive urgency; I34.0 Nonrheumatic mitral (valve) insufficiency; I25.10 Atherosclerotic heart disease of native coronary artery without angina pectoris; I11.0 Hypertensive heart disease with heart failure; F17.200 Nicotine dependence, unspecified, uncomplicated; E78.5 Hyperlipidemia, unspecified; E11.9 Type 2 diabetes mellitus without complications; I71.4 Abdominal aortic aneurysm, without rupture; B97.89 Other viral agents as the cause of diseases classified elsewhere; Z86.79 Personal history of other diseases of the circulatory system; Z95.1 Presence of aortocoronary bypass graft; Z95.5 Presence of coronary angioplasty implant and graft; Z88.8 Allergy status to other drugs, medicaments and biological substances; Z79.82 Long term (current) use of aspirin; Z79.899 Other long term (current) drug therapy
CPT/HCPCS: 36415; 36600; 71045; 80048; 80053; 80061; 82375; 82550; 82728; 82805; 82962; 83605; 83615; 83735; 83880; 84145; 84443; 84484; 85025; 85379; 85384; 86140; 86141; 87635; 93005; 94660; 99291; C1893; J0456; J0696; J1100; J1650; J1815; J1940; J2930; J3490; J7060

== ENCOUNTER 2021-08-05 05:34 | Emergency (ER) | payer BC, MEDICAID ==
[~2021-08-05] VITALS: Ht 175.3 cm; Wt 87.0 kg
[~2021-08-05 05:34] MED LIST changes: +ALBU05 NEB; +AZIT500T8 MT; +CLOP75TA15 PO; +COR6 PO; +FURO40TA5 MT; -HYDR-4135 PO
[2021-08-05] MEDS ORDERED: METHYLPREDNISOLONE SOD SUCC 125 MG/2 ML VIAL IV STA ×2 (05:45→05:56)
[2021-08-05] MEDS ORDERED: MAGNESIUM 2 G PREMIX 50 ML IV ONE (05:45)
[2021-08-05] MEDS ORDERED: IPRATROPIUM BROMIDE (0.02%) 0.5MG/2.5ML NEB HHN STA ×2 (05:45→05:56)
[2021-08-05] MEDS ORDERED: ALBUTEROL (0.083%) 2.5MG/3ML NEB HHN SCH ×2 (06:00)
[2021-08-05 06:04] LABS: BASOPHILS % 0.9 % (0.0-2.0); EOSINOPHILS % 1.8 % (0.0-5.0); HEMATOCRIT. 47.6 % (42.0-52.0); HEMOGLOBIN. 15.2 g/dL (14.0-18.0); LYMPHOCYTES % 16.6 % (20.0-50.0); MEAN CORPUSCULAR HEMOGLOBIN 27.5 pg (28.0-32.0); MEAN CORPUSCULAR VOLUME 86.3 fL (80.0-94.0); MEAN PLATELET VOLUME 9.1 fl (7.4-10.4); MONOCYTES % 7.7 % (2.0-8.0); PLATELET 193 x1000/uL (130-400); RED BLOOD CELL COUNT 5.52 mill/uL (4.7-6.1); RED CELL DISTRIBUTION WIDTH 26.6 % (11.6-14.6)
[2021-08-05 06:11] LABS: CHLORIDE 109 mEq/L (98-107)
[2021-08-05 06:16] LABS: ETHANOL BLOOD < 10 mg/dL
[2021-08-05 07:41] LABS: PLATELET ESTIMATE NORMAL
[2021-08-05] MEDS ORDERED: LABETALOL 5MG/ML SYR 20 MG/4 ML SYRINGE IV NR (14:15)
[2021-08-05] MEDS ORDERED: LABETALOL HCL VIAL 20 MG/4 ML VIAL IV ONE (14:15)
[2021-08-05 14:29] VITALS: BP 166/101
[2021-08-06 14:36] LABS: *AMPHETAMINES SCREEN URINE PRESUMTIVE POSITIVE (NEGATIVE); *BENZODIAZEPINES SCREEN URINE NEGATIVE (NEGATIVE); *COCAINE SCREEN URINE NEGATIVE (NEGATIVE)
[2021-08-06 14:37] LABS: CANNABINOID URINE SCREEN NEGATIVE (NEGATIVE); OPIATES URINE SCREEN NEGATIVE (NEGATIVE); PHENCYCLIDINE URINE SCREEN NEGATIVE (NEGATIVE)
[2021-08-07 19:16] LABS: *BARBITURATES SCREEN URINE NEGATIVE (NEGATIVE); METHADONE URINE SCREEN NEGATIVE (NEGATIVE)
== END 2021-08-05 14:25 | disposition short-term general hospital (02) ==
LOC: ER 05:34 → CANBEDREQ 16:33
DX: I21.4 Non-ST elevation (NSTEMI) myocardial infarction (principal); R07.9 Chest pain, unspecified; J44.9 Chronic obstructive pulmonary disease, unspecified; E11.9 Type 2 diabetes mellitus without complications; I10 Essential (primary) hypertension; I71.4 Abdominal aortic aneurysm, without rupture; F15.10 Other stimulant abuse, uncomplicated; Z88.8 Allergy status to other drugs, medicaments and biological substances; Z95.1 Presence of aortocoronary bypass graft; Z95.5 Presence of coronary angioplasty implant and graft; Z20.822 Contact with and (suspected) exposure to COVID-19
CPT/HCPCS: 36415; 71045; 80053; 80305; 80320; 83880; 84484; 85025; 87426; 93005; 94640; 96374; 99285; J2930; J3490; G0480

== ENCOUNTER 2021-10-31 03:44 | Emergency (ER) | payer BC, MEDICAID ==
[~2021-10-31] VITALS: Ht 177.8 cm; Wt 75.0 kg
[2021-10-31] MEDS ORDERED: ASPIRIN 81MG TABLET PO ONE (04:15)
[2021-10-31] MEDS ORDERED: PREDNISONE 20MG TABLET PO STA (04:27)
[2021-10-31] MEDS ORDERED: IPRATROPIUM BROMIDE (0.02%) 0.5MG/2.5ML NEB HHN STA (04:27)
[2021-10-31] MEDS ORDERED: ALBUTEROL (0.083%) 2.5MG/3ML NEB HHN STA (04:27)
[2021-10-31 04:40] LABS: BASOPHILS % 1.3 % (0.0-2.0); EOSINOPHILS % 0.8 % (0.0-5.0); HEMATOCRIT. 55.2 % (42.0-52.0); HEMOGLOBIN. 17.6 g/dL (14.0-18.0); LYMPHOCYTES % 21.2 % (20.0-50.0); MEAN CORPUSCULAR HEMOGLOBIN 29.2 pg (28.0-32.0); MEAN CORPUSCULAR VOLUME 91.6 fL (80.0-94.0); MEAN PLATELET VOLUME 9.8 fl (7.4-10.4); MONOCYTES % 8.4 % (2.0-8.0); NEUTROPHILS % 68.3 % (40.0-76.0); PLATELET 129 x1000/uL (130-400); RED BLOOD CELL COUNT 6.03 mill/uL (4.7-6.1); RED CELL DISTRIBUTION WIDTH 19.2 % (11.6-14.6)
[2021-10-31 04:51] LABS: CHLORIDE 109 mEq/L (98-107)
[2021-10-31] MEDS ORDERED: MORPHINE SULFATE 4 MG/ML CPJ (NOT FOR IM USE) IV SCH (05:30)
[2021-10-31] MEDS ORDERED: FUROSEMIDE 40MG/4ML VIAL IVP ONE (08:00)
[2021-10-31] MEDS ORDERED: ENOXAPARIN 80MG/0.8ML SYR SUBCUT NR (08:45)
[2021-10-31] MEDS ORDERED: AMLODIPINE 5MG TABLET PO SCH (09:00)
[2021-10-31] MEDS ORDERED: NITROGLYCERIN OINT 1GM/INCH UDPKT TD SCH (11:00)
[2021-10-31 11:15] VITALS: BP 156/81
[2021-10-31] MEDS ORDERED: FUROSEMIDE 40MG/4ML VIAL IVP SCH (18:00)
[2021-10-31] MEDS ORDERED: ENOXAPARIN 80MG/0.8ML SYR SUBCUT SCH (21:00)
== END 2021-10-31 11:27 | disposition left against medical advice (07) ==
LOC: ER 03:44 → CANBEDREQ 11:26 → ER 11:27
DX: I21.A1 Myocardial infarction type 2 (principal); J44.9 Chronic obstructive pulmonary disease, unspecified; I25.2 Old myocardial infarction; R09.02 Hypoxemia; I11.0 Hypertensive heart disease with heart failure; I50.9 Heart failure, unspecified; R77.8 Other specified abnormalities of plasma proteins; E11.9 Type 2 diabetes mellitus without complications; F17.210 Nicotine dependence, cigarettes, uncomplicated; I25.10 Atherosclerotic heart disease of native coronary artery without angina pectoris; I34.0 Nonrheumatic mitral (valve) insufficiency; I44.7 Left bundle-branch block, unspecified; Z88.8 Allergy status to other drugs, medicaments and biological substances; Z95.1 Presence of aortocoronary bypass graft; Z79.82 Long term (current) use of aspirin; Z86.16 Personal history of COVID-19; Z79.899 Other long term (current) drug therapy; Z20.822 Contact with and (suspected) exposure to COVID-19
CPT/HCPCS: 36415; 71045; 80053; 83690; 83880; 84484; 85025; 87426; 93005; 94640; 96372; 96374; 96375; 99285; C9803; J1650; J1940; J2270; J7512

== ENCOUNTER 2021-11-02 16:09 | Emergency (ER) | payer BC, MEDICAID ==
[~2021-11-02] VITALS: Ht 167.6 cm; Wt 82.0 kg
[2021-11-02] MEDS ORDERED: ALBUTEROL (0.083%) 2.5MG/3ML NEB HHN STA (16:18)
[2021-11-02] MEDS ORDERED: METHYLPREDNISOLONE SOD SUCC 125 MG/2 ML VIAL IV STA (16:18)
[2021-11-02] MEDS ORDERED: IPRATROPIUM BROMIDE (0.02%) 0.5MG/2.5ML NEB HHN STA (16:18)
[2021-11-02 17:21] LABS: BASOPHILS % 0.3 % (0.0-2.0); HEMATOCRIT. 53.4 % (42.0-52.0); LYMPHOCYTES % 12.6 % (20.0-50.0); MEAN CORPUSCULAR HEMOGLOBIN 29.4 pg (28.0-32.0); MEAN CORPUSCULAR VOLUME 92.4 fL (80.0-94.0); MEAN PLATELET VOLUME 10.4 fl (7.4-10.4); MONOCYTES % 9.2 % (2.0-8.0); NEUTROPHILS % 77.9 % (40.0-76.0); PLATELET 145 x1000/uL (130-400); RED BLOOD CELL COUNT 5.78 mill/uL (4.7-6.1); RED CELL DISTRIBUTION WIDTH 20.1 % (11.6-14.6)
[2021-11-02 17:57] LABS: CHLORIDE 103 mEq/L (98-107)
[2021-11-02] MEDS ORDERED: ASPIRIN 81MG TABLET PO ONE (18:45)
[2021-11-02] MEDS ORDERED: FUROSEMIDE 40MG/4ML VIAL IV ONE (18:45)
[2021-11-02] MEDS ORDERED: ENOXAPARIN 100MG/ML SYR SUBCUT ONE (18:45)
[2021-11-02 21:58] VITALS: BP 153/92
== END 2021-11-02 21:13 | disposition left against medical advice (07) ==
LOC: ER 16:09 → EDBEDREQ 18:11 → EDBEDREQSVC 20:27 → EDBEDREQTM 20:27 → ER 21:13 → CANBEDREQ 11-04 00:40
DX: I21.4 Non-ST elevation (NSTEMI) myocardial infarction (principal); I11.0 Hypertensive heart disease with heart failure; I50.9 Heart failure, unspecified; J44.9 Chronic obstructive pulmonary disease, unspecified; I25.2 Old myocardial infarction; E11.9 Type 2 diabetes mellitus without complications; Z20.822 Contact with and (suspected) exposure to COVID-19; Z79.82 Long term (current) use of aspirin; Z95.1 Presence of aortocoronary bypass graft
CPT/HCPCS: 36415; 71045; 80053; 83880; 84484; 85025; 93005; 94644; 96374; 96375; 99285; J1940; J2930

== ENCOUNTER 2021-12-11 18:02 | Inpatient (IN) | payer BC, MEDICAID ==
[~2021-12-11] VITALS: Ht 170.2 cm; Wt 75.4 kg
[2021-12-11 19:31] LABS: BASOPHILS % 0.9 % (0.0-2.0); EOSINOPHILS % 1.1 % (0.0-5.0); HEMATOCRIT. 45.1 % (42.0-52.0); HEMOGLOBIN. 14.3 g/dL (14.0-18.0); LYMPHOCYTES % 25.5 % (20.0-50.0); MEAN CORPUSCULAR HEMOGLOBIN 27.9 pg (28.0-32.0); MEAN CORPUSCULAR VOLUME 87.9 fL (80.0-94.0); MEAN PLATELET VOLUME 9.5 fl (7.4-10.4); MONOCYTES % 9.2 % (2.0-8.0); NEUTROPHILS % 63.3 % (40.0-76.0); PLATELET 192 x1000/uL (130-400); RED BLOOD CELL COUNT 5.13 mill/uL (4.7-6.1); RED CELL DISTRIBUTION WIDTH 18.8 % (11.6-14.6)
[2021-12-11 19:50] LABS: CHLORIDE 105 mEq/L (98-107)
[2021-12-11 20:00] LABS: ETHANOL BLOOD < 10 mg/dL
[2021-12-11] MEDS ORDERED: ASPIRIN 325MG EC TABLET PO ONE (21:15)
[2021-12-11] MEDS ORDERED: ENOXAPARIN 60MG/0.6ML SYR SUBCUT ONE (21:15)
[2021-12-12] VITALS (10 sets, daily range): BP systolic 108–147; BP diastolic 75–97
[2021-12-12] MEDS ORDERED: *PATIENT'S OWN MEDICATION STORAGE XX SCH (03:30)
[2021-12-12] MEDS ORDERED: DEXTROSE 50% WATER 50ML SYRINGE IV PRN (06:45)
[2021-12-12] MEDS ORDERED: ALBUTEROL (0.083%) 2.5MG/3ML NEB HHN NR (07:15)
[2021-12-12] MEDS: BLOOD SUGAR DIAGNOSTIC STRIP TEST SCH ×4 (07:35→21:35)
[2021-12-12] MEDS: INSULIN LISPRO 100 UNITS/ML SUBCUT SCH ×4 (07:36→21:00)
[2021-12-12] MEDS: CLOPIDOGREL 75MG TABLET PO SCH (08:26)
[2021-12-12] MEDS: ASPIRIN 81MG EC TABLET PO SCH (08:27)
[2021-12-12] MEDS: AMLODIPINE 5MG TABLET PO SCH (08:27)
[2021-12-12] MEDS: LOSARTAN POTASSIUM 50 MG TABLET PO SCH ×2 (08:27→17:35)
[2021-12-12] MEDS ORDERED: CARVEDILOL 6.25 MG TABLET PO SCH (09:00)
[2021-12-12] MEDS ORDERED: FUROSEMIDE 40MG TABLET PO SCH (09:00)
[2021-12-12 10:31] LABS: *AMPHETAMINES SCREEN URINE NEGATIVE (NEGATIVE); *BARBITURATES SCREEN URINE NEGATIVE (NEGATIVE); *BENZODIAZEPINES SCREEN URINE NEGATIVE (NEGATIVE); *COCAINE SCREEN URINE NEGATIVE (NEGATIVE); CANNABINOID URINE SCREEN NEGATIVE (NEGATIVE); METHADONE URINE SCREEN NEGATIVE (NEGATIVE); OPIATES URINE SCREEN NEGATIVE (NEGATIVE); PHENCYCLIDINE URINE SCREEN NEGATIVE (NEGATIVE)
[2021-12-12] MEDS ORDERED: NITROGLYCERIN 0.4MG TABLET SL SL PRN (11:15)
[2021-12-12] MEDS ORDERED: POTASSIUM CHLORIDE 20MEQ TABLET SR PO NR (13:00)
[2021-12-12 16:32] LABS: BASOPHILS % 1.3 % (0.0-2.0); EOSINOPHILS % 1.3 % (0.0-5.0); HEMATOCRIT. 45.2 % (42.0-52.0); HEMOGLOBIN. 14.4 g/dL (14.0-18.0); LYMPHOCYTES % 24.4 % (20.0-50.0); MEAN CORPUSCULAR HEMOGLOBIN 28.2 pg (28.0-32.0); MEAN CORPUSCULAR VOLUME 88.6 fL (80.0-94.0); MEAN PLATELET VOLUME 9.4 fl (7.4-10.4); MONOCYTES % 8.4 % (2.0-8.0); NEUTROPHILS % 64.6 % (40.0-76.0); PLATELET 195 x1000/uL (130-400); RED CELL DISTRIBUTION WIDTH 18.6 % (11.6-14.6)
[2021-12-12 16:56] LABS: CHLORIDE 106 mEq/L (98-107)
[2021-12-12 17:06] LABS: CREATINE KINASE MB FRACTION 3.5 ng/mL (0.5-3.6)
[2021-12-12 17:13] LABS: HDL CHOLESTEROL 33 mg/dL (40-59); LDL CHOLESTEROL 88 mg/dL (5-100)
[2021-12-12] MEDS: ATORVASTATIN CALCIUM 40MG TABLET PO SCH (21:26)
[2021-12-13] VITALS (8 sets, daily range): BP systolic 116–152; BP diastolic 76–104
[2021-12-13 00:15] LABS: CREATINE KINASE MB FRACTION 3.4 ng/mL (0.5-3.6)
[2021-12-13] MEDS: BLOOD SUGAR DIAGNOSTIC STRIP TEST SCH ×4 (07:41→21:00)
[2021-12-13] MEDS: INSULIN LISPRO 100 UNITS/ML SUBCUT SCH ×4 (07:42→21:00)
[2021-12-13] MEDS ORDERED: METOLAZONE 2.5MG TABLET PO NR (08:00)
[2021-12-13] MEDS: ASPIRIN 81MG EC TABLET PO SCH (08:19)
[2021-12-13] MEDS: AMLODIPINE 5MG TABLET PO SCH (08:19)
[2021-12-13] MEDS: CLOPIDOGREL 75MG TABLET PO SCH (08:19)
[2021-12-13] MEDS: LOSARTAN POTASSIUM 50 MG TABLET PO SCH ×2 (08:19→17:03)
[2021-12-13] MEDS ORDERED: POTASSIUM CHLORIDE 20MEQ TABLET SR PO SCH ×2 (09:00→17:00)
[2021-12-13] MEDS ORDERED: FUROSEMIDE 40MG/4ML VIAL IVP SCH ×2 (09:00→17:15)
[2021-12-13] MEDS ORDERED: BUDESONIDE 0.5MG/2ML NEB HHN SCH (11:15)
[2021-12-13] MEDS: ENOXAPARIN 80MG/0.8ML SYR SUBCUT SCH ×2 (11:58→22:19)
[2021-12-13 16:09] LABS: INR 1.4; PROTHROMBIN TIME 14.3 sec (9.6-11.0)
[2021-12-13] MEDS: ATORVASTATIN CALCIUM 40MG TABLET PO SCH (22:13)
[2021-12-14] VITALS: BP 146/77
[2021-12-14 04:00] VITALS: BP 152/94
== END 2021-12-14 10:40 | disposition left against medical advice (07) | DRG 291 ==
LOC: ER 18:02 → 5EST 22:17 → ENRESERV 23:23
PROVIDERS: ADMIT Internal Medicine; ATTEND Internal Medicine
DX: I11.0 Hypertensive heart disease with heart failure (principal); I50.43 Acute on chronic combined systolic (congestive) and diastolic (congestive) heart failure; J96.20 Acute and chronic respiratory failure, unspecified whether with hypoxia or hypercapnia; I48.92 Unspecified atrial flutter; J44.1 Chronic obstructive pulmonary disease with (acute) exacerbation; I80.11 Phlebitis and thrombophlebitis of right femoral vein; I25.119 Atherosclerotic heart disease of native coronary artery with unspecified angina pectoris; F17.210 Nicotine dependence, cigarettes, uncomplicated; Z20.822 Contact with and (suspected) exposure to COVID-19; E11.51 Type 2 diabetes mellitus with diabetic peripheral angiopathy without gangrene; B19.20 Unspecified viral hepatitis C without hepatic coma; R77.8 Other specified abnormalities of plasma proteins; I08.1 Rheumatic disorders of both mitral and tricuspid valves; E78.5 Hyperlipidemia, unspecified; I27.20 Pulmonary hypertension, unspecified; Z88.8 Allergy status to other drugs, medicaments and biological substances; Z86.16 Personal history of COVID-19; Z86.73 Personal history of transient ischemic attack (TIA), and cerebral infarction without residual deficits; I25.2 Old myocardial infarction; Z79.4 Long term (current) use of insulin; Z99.81 Dependence on supplemental oxygen; Z86.79 Personal history of other diseases of the circulatory system
CPT/HCPCS: 36415; 71045; 80048; 80053; 80061; 80305; 80320; 82550; 82553; 82962; 83036; 83735; 83880; 84443; 84484; 85025; 87426; 93005; 93306; 93880; 94640; 97162; 99285; J1650; J1940; J7626; G0480

== ENCOUNTER 2021-12-26 01:30 | Inpatient (IN) | payer BC, MEDICAID ==
[~2021-12-26] VITALS: Ht 170.2 cm; Wt 71.7 kg
[2021-12-26] MEDS ORDERED: METHYLPREDNISOLONE SOD SUCC 125 MG/2 ML VIAL IV STA (02:40)
[2021-12-26] MEDS ORDERED: IPRATROPIUM BROMIDE (0.02%) 0.5MG/2.5ML NEB HHN STA (02:40)
[2021-12-26] MEDS ORDERED: FUROSEMIDE 40MG/4ML VIAL IV ONE (02:45)
[2021-12-26] MEDS ORDERED: MAGNESIUM 2 G PREMIX 50 ML IV ONE (02:45)
[2021-12-26 03:26] LABS: BASOPHILS % 1.3 % (0.0-2.0); EOSINOPHILS % 1.4 % (0.0-5.0); HEMATOCRIT. 42.1 % (42.0-52.0); HEMOGLOBIN. 13.5 g/dL (14.0-18.0); LYMPHOCYTES % 19.3 % (20.0-50.0); MEAN CORPUSCULAR HEMOGLOBIN 27.5 pg (28.0-32.0); MEAN CORPUSCULAR VOLUME 85.6 fL (80.0-94.0); MEAN PLATELET VOLUME 9.3 fl (7.4-10.4); MONOCYTES % 9.2 % (2.0-8.0); NEUTROPHILS % 68.8 % (40.0-76.0); PLATELET 189 x1000/uL (130-400); RED BLOOD CELL COUNT 4.92 mill/uL (4.7-6.1); RED CELL DISTRIBUTION WIDTH 18.2 % (11.6-14.6)
[2021-12-26 03:27] LABS: CHLORIDE 104 mEq/L (98-107)
[2021-12-26] MEDS: ALBUTEROL (0.083%) 2.5MG/3ML NEB HHN SCH (03:34)
[2021-12-26] MEDS ORDERED: ASPIRIN 325MG EC TABLET PO NR (04:30)
[2021-12-26] MEDS: NITROGLYCERIN 0.4MG TABLET SL SL PRN ×2 (06:06→07:37)
[2021-12-26] MEDS ORDERED: ACETAMINOPHEN 325MG TABLET PO PRN (08:30)
[2021-12-26] MEDS ORDERED: MORPHINE SULFATE 2 MG/ML CPJ (NOT FOR IM USE) IV PRN (08:30)
[2021-12-26] MEDS ORDERED: ONDANSETRON HCL 4MG/2ML INJ IV PRN (08:30)
[2021-12-26] MEDS ORDERED: DIPHENHYDRAMINE 50MG/ML VIAL IV PRN (08:30)
[2021-12-26] MEDS ORDERED: CLONIDINE 0.1MG TABLET PO PRN (08:30)
[2021-12-26] MEDS ORDERED: IPRATROPIUM/ALBUTEROL 0.5-3(2.5)MG/3ML NEB HHN PRN (08:30)
[2021-12-26] MEDS ORDERED: NALOXONE HCL 0.4MG/ML VIAL IV PRN (08:45)
[2021-12-26] MEDS ORDERED: ENOXAPARIN 40MG/0.4ML SYR SUBCUT SCH (09:00)
[2021-12-26] MEDS: FUROSEMIDE 40MG/4ML VIAL IVP SCH (09:00)
[2021-12-26 11:00] VITALS: BP 149/61
[2021-12-26 11:15] VITALS: BP 149/61
[2021-12-26] MEDS ORDERED: ENTRESTO PO SCH (11:45)
[2021-12-26] MEDS ORDERED: POTASSIUM CHLORIDE 20MEQ/PACKET PO NR (11:45)
[2021-12-26] MEDS ORDERED: CARVEDILOL 6.25 MG TABLET PO NR (12:00)
[2021-12-26] MEDS: SACUBITRIL/VALSARTAN 24MG/26MG TABLET PO SCH ×2 (13:35→17:50)
[2021-12-26 16:00] VITALS: BP 147/93
[2021-12-26 18:06] LABS: CLARITY URINE CLEAR (CLEAR); COLOR URINE YELLOW (YELLOW); KETONES URINE NEGATIVE (NEGATIVE); LEUKOCYTE ESTERASE URINE NEGATIVE (NEGATIVE); NITRITE URINE NEGATIVE (NEGATIVE); OCCULT BLOOD URINE TRACE (NEGATIVE); PROTEIN URINE 1+ (NEGATIVE); SPECIFIC GRAVITY URINE 1.009 (1.005-1.030)
[2021-12-26 18:25] LABS: *AMPHETAMINES SCREEN URINE NEGATIVE (NEGATIVE); *BARBITURATES SCREEN URINE NEGATIVE (NEGATIVE); *BENZODIAZEPINES SCREEN URINE NEGATIVE (NEGATIVE); *COCAINE SCREEN URINE NEGATIVE (NEGATIVE); CANNABINOID URINE SCREEN NEGATIVE (NEGATIVE); METHADONE URINE SCREEN NEGATIVE (NEGATIVE); OPIATES URINE SCREEN NEGATIVE (NEGATIVE); PHENCYCLIDINE URINE SCREEN NEGATIVE (NEGATIVE)
[2021-12-26 20:00] VITALS: BP 124/76
[2021-12-26] MEDS: CARVEDILOL 6.25 MG TABLET PO SCH (21:00)
[2021-12-26] MEDS ORDERED: ENOXAPARIN 80MG/0.8ML SYR SUBCUT NR (21:00)
[2021-12-27] VITALS: BP 115/68
[2021-12-27 04:00] VITALS: BP 110/58
[2021-12-27 06:07] LABS: INR 1.3; PROTHROMBIN TIME 13.5 sec (9.6-11.0)
[2021-12-27 06:11] LABS: CHLORIDE 102 mEq/L (98-107)
[2021-12-27 06:32] LABS: BASOPHILS % 0.1 % (0.0-2.0); HEMATOCRIT. 42.7 % (42.0-52.0); HEMOGLOBIN. 13.8 g/dL (14.0-18.0); LYMPHOCYTES % 8.4 % (20.0-50.0); MEAN CORPUSCULAR HEMOGLOBIN 27.6 pg (28.0-32.0); MEAN PLATELET VOLUME 9.8 fl (7.4-10.4); MONOCYTES % 6.6 % (2.0-8.0); NEUTROPHILS % 84.9 % (40.0-76.0); PLATELET 198 x1000/uL (130-400); RED BLOOD CELL COUNT 5.02 mill/uL (4.7-6.1); RED CELL DISTRIBUTION WIDTH 18.3 % (11.6-14.6)
[2021-12-27 08:00] VITALS: BP 113/62
[2021-12-27] MEDS: POTASSIUM CHLORIDE 20MEQ/PACKET PO SCH (09:08)
[2021-12-27] MEDS: ASPIRIN 81MG EC TABLET PO SCH (09:09)
[2021-12-27] MEDS: SACUBITRIL/VALSARTAN 24MG/26MG TABLET PO SCH ×2 (09:09→17:08)
[2021-12-27] MEDS: FUROSEMIDE 40MG/4ML VIAL IVP SCH (09:09)
[2021-12-27] MEDS: CARVEDILOL 6.25 MG TABLET PO SCH ×2 (09:10→21:00)
[2021-12-27 12:00] VITALS: BP 116/74
[2021-12-27 16:00] VITALS: BP 101/69
[2021-12-27 20:00] VITALS: BP 106/68
[2021-12-28] VITALS: BP 118/68
[2021-12-28 04:00] VITALS: BP 118/68
[2021-12-28] MEDS ORDERED: SODIUM CHLORIDE 0.45% 1,000 ML IV ONE (06:00)
[2021-12-28 06:58] LABS: BASOPHILS % 0.5 % (0.0-2.0); EOSINOPHILS % 1.6 % (0.0-5.0); HEMATOCRIT. 44.7 % (42.0-52.0); HEMOGLOBIN. 14.4 g/dL (14.0-18.0); LYMPHOCYTES % 21.8 % (20.0-50.0); MEAN CORPUSCULAR HEMOGLOBIN 27.8 pg (28.0-32.0); MEAN CORPUSCULAR VOLUME 86.2 fL (80.0-94.0); MEAN PLATELET VOLUME 9.7 fl (7.4-10.4); MONOCYTES % 6.7 % (2.0-8.0); NEUTROPHILS % 69.4 % (40.0-76.0); PLATELET 219 x1000/uL (130-400); RED BLOOD CELL COUNT 5.18 mill/uL (4.7-6.1); RED CELL DISTRIBUTION WIDTH 18.6 % (11.6-14.6)
[2021-12-28 08:00] VITALS: BP 119/68
[2021-12-28 08:34] LABS: CHLORIDE 104 mEq/L (98-107)
[2021-12-28] MEDS ORDERED: POTASSIUM CHLORIDE 20MEQ TABLET SR PO NR (09:30)
[2021-12-28] MEDS: ASPIRIN 81MG EC TABLET PO SCH (09:33)
[2021-12-28] MEDS: CARVEDILOL 6.25 MG TABLET PO SCH (09:33)
[2021-12-28] MEDS: POTASSIUM CHLORIDE 20MEQ/PACKET PO SCH (09:33)
[2021-12-28] MEDS: SACUBITRIL/VALSARTAN 24MG/26MG TABLET PO SCH (09:33)
== END 2021-12-28 09:55 | disposition left against medical advice (07) | DRG 205 ==
LOC: ER 01:30 → 6WST 06:03 → ENRESERV 09:35 → 6WST 11:12
PROVIDERS: ADMIT Internal Medicine; ATTEND Internal Medicine
DX: M94.0 Chondrocostal junction syndrome [Tietze] (principal); I50.23 Acute on chronic systolic (congestive) heart failure; I42.9 Cardiomyopathy, unspecified; I25.10 Atherosclerotic heart disease of native coronary artery without angina pectoris; I11.0 Hypertensive heart disease with heart failure; Z20.822 Contact with and (suspected) exposure to COVID-19; J44.9 Chronic obstructive pulmonary disease, unspecified; E11.9 Type 2 diabetes mellitus without complications; E78.5 Hyperlipidemia, unspecified; I08.1 Rheumatic disorders of both mitral and tricuspid valves; F17.200 Nicotine dependence, unspecified, uncomplicated; I25.2 Old myocardial infarction; Z79.899 Other long term (current) drug therapy; Z95.1 Presence of aortocoronary bypass graft; Z91.14 Patient's other noncompliance with medication regimen; Z96.652 Presence of left artificial knee joint; Z79.84 Long term (current) use of oral hypoglycemic drugs
CPT/HCPCS: 36415; 71045; 80048; 80053; 80305; 81003; 83880; 84484; 85025; 87426; 93005; 93970; 94640; 99291; J1650; J1940; J2930; J3475

== ENCOUNTER 2022-01-04 03:37 | Inpatient (IN) | payer BC, MEDICAID ==
[~2022-01-04] VITALS: Ht 170.2 cm; Wt 73.5 kg
[2022-01-04] MEDS ORDERED: IPRATROPIUM BROMIDE (0.02%) 0.5MG/2.5ML NEB HHN STA (04:06)
[2022-01-04] MEDS ORDERED: METHYLPREDNISOLONE SOD SUCC 125 MG/2 ML VIAL IV STA (04:06)
[2022-01-04] MEDS ORDERED: FUROSEMIDE 40MG/4ML VIAL IVP ONE (04:15)
[2022-01-04] MEDS ORDERED: MAGNESIUM 2 G PREMIX 50 ML IV ONE (04:15)
[2022-01-04] MEDS: ALBUTEROL (0.083%) 2.5MG/3ML NEB HHN SCH ×2 (04:35→04:36)
[2022-01-04 04:56] LABS: CHLORIDE 105 mEq/L (98-107)
[2022-01-04 07:12] LABS: BASOPHILS % 0.8 % (0.0-2.0); EOSINOPHILS % 0.5 % (0.0-5.0); HEMATOCRIT. 45.7 % (42.0-52.0); HEMOGLOBIN. 14.4 g/dL (14.0-18.0); LYMPHOCYTES % 12.9 % (20.0-50.0); MEAN CORPUSCULAR HEMOGLOBIN 27.1 pg (28.0-32.0); MEAN CORPUSCULAR VOLUME 85.8 fL (80.0-94.0); MEAN PLATELET VOLUME 9.6 fl (7.4-10.4); MONOCYTES % 4.2 % (2.0-8.0); NEUTROPHILS % 81.6 % (40.0-76.0); PLATELET 193 x1000/uL (130-400); RED BLOOD CELL COUNT 5.32 mill/uL (4.7-6.1); RED CELL DISTRIBUTION WIDTH 18.2 % (11.6-14.6)
[2022-01-04] MEDS ORDERED: ONDANSETRON HCL 4MG/2ML INJ IV PRN (09:30)
[2022-01-04] MEDS ORDERED: ACETAMINOPHEN 325MG TABLET PO PRN (09:30)
[2022-01-04] MEDS: AMLODIPINE 10MG TABLET PO SCH (09:47)
[2022-01-04] MEDS ORDERED: ISOS5TAB4 MT (11:51)
[2022-01-04 11:53] VITALS: BP 162/102
[2022-01-04 12:00] VITALS: BP 165/91
[2022-01-04] MEDS ORDERED: *PATIENT'S OWN MEDICATION STORAGE XX SCH (12:30)
[2022-01-04] MEDS ORDERED: ENOXAPARIN 80MG/0.8ML SYR SUBCUT NR (15:45)
[2022-01-04 16:00] VITALS: BP 141/85
[2022-01-04 16:45] LABS: CLARITY URINE CLEAR (CLEAR); COLOR URINE YELLOW (YELLOW); KETONES URINE NEGATIVE (NEGATIVE); LEUKOCYTE ESTERASE URINE NEGATIVE (NEGATIVE); NITRITE URINE NEGATIVE (NEGATIVE); OCCULT BLOOD URINE NEGATIVE (NEGATIVE); PH URINE 5.5 (4.5-8.0); PROTEIN URINE 3+ (NEGATIVE); SPECIFIC GRAVITY URINE 1.016 (1.005-1.030)
[2022-01-04] MEDS: FUROSEMIDE 40MG/4ML VIAL IVP SCH (16:53)
[2022-01-04 16:56] LABS: *AMPHETAMINES SCREEN URINE NEGATIVE (NEGATIVE); *BARBITURATES SCREEN URINE NEGATIVE (NEGATIVE); *BENZODIAZEPINES SCREEN URINE NEGATIVE (NEGATIVE); *COCAINE SCREEN URINE NEGATIVE (NEGATIVE); CANNABINOID URINE SCREEN NEGATIVE (NEGATIVE); METHADONE URINE SCREEN NEGATIVE (NEGATIVE); OPIATES URINE SCREEN NEGATIVE (NEGATIVE); PHENCYCLIDINE URINE SCREEN NEGATIVE (NEGATIVE)
[2022-01-04 17:57] LABS: INR 1.3; PROTHROMBIN TIME 13.4 sec (9.6-11.0)
[2022-01-04 18:11] LABS: CHLORIDE 102 mEq/L (98-107)
[2022-01-04 20:00] VITALS: BP 150/93
[2022-01-05] VITALS: BP 167/100
[2022-01-05] MEDS ORDERED: CLONIDINE 0.1MG TABLET PO PRN
[2022-01-05 04:00] VITALS: BP 150/95
[2022-01-05] MEDS ORDERED: ENOXAPARIN 80MG/0.8ML SYR SUBCUT SCH (06:00)
[2022-01-05] MEDS: FUROSEMIDE 40MG/4ML VIAL IVP SCH (06:23)
[2022-01-05 07:18] LABS: INR 1.2; PROTHROMBIN TIME 12.9 sec (9.6-11.0)
[2022-01-05 07:35] LABS: CHLORIDE 101 mEq/L (98-107)
[2022-01-05 08:00] VITALS: BP 139/91
[2022-01-05] MEDS ORDERED: ASPIRIN 81MG TABLET PO SCH (09:00)
[2022-01-05] MEDS: AMLODIPINE 10MG TABLET PO SCH (09:51)
[2022-01-05 12:00] VITALS: BP 144/81
[2022-01-05 14:37] VITALS: BP 144/81
[2022-01-05 16:00] VITALS: BP 136/84
== END 2022-01-05 17:15 | disposition home or self-care (01) | DRG 203 ==
LOC: ER 03:37 → 7WST 07:32 → ENRESERV 08:21
PROVIDERS: ADMIT Internal Medicine; ATTEND Internal Medicine
DX: M94.0 Chondrocostal junction syndrome [Tietze] (principal); E43 Unspecified severe protein-calorie malnutrition; I42.9 Cardiomyopathy, unspecified; I48.92 Unspecified atrial flutter; I50.9 Heart failure, unspecified; I11.0 Hypertensive heart disease with heart failure; I48.91 Unspecified atrial fibrillation; Z95.1 Presence of aortocoronary bypass graft; I25.10 Atherosclerotic heart disease of native coronary artery without angina pectoris; E78.5 Hyperlipidemia, unspecified; J44.9 Chronic obstructive pulmonary disease, unspecified; E11.9 Type 2 diabetes mellitus without complications; Z96.652 Presence of left artificial knee joint; Z88.8 Allergy status to other drugs, medicaments and biological substances; I25.2 Old myocardial infarction; Z79.899 Other long term (current) drug therapy; Z68.25 Body mass index [BMI] 25.0-25.9, adult; Z72.0 Tobacco use
CPT/HCPCS: 36415; 71045; 80048; 80053; 80305; 81003; 82962; 83605; 83880; 84484; 85025; 93005; 94644; 99291; J1650; J1940; J2930; J3475

== ENCOUNTER 2022-03-08 18:52 | Emergency (ER) | payer BC, MEDICAID ==
[~2022-03-08] VITALS: Ht 175.3 cm; Wt 68.0 kg
[~2022-03-08 18:52] MED LIST changes: +ISOS5TAB4 MT
[2022-03-08 20:11] LABS: EOSINOPHILS % 1.6 % (0.0-5.0); HEMATOCRIT. 35.4 % (42.0-52.0); HEMOGLOBIN. 11.3 g/dL (14.0-18.0); LYMPHOCYTES % 22.3 % (20.0-50.0); MEAN CORPUSCULAR HEMOGLOBIN 26.1 pg (28.0-32.0); MEAN CORPUSCULAR VOLUME 81.6 fL (80.0-94.0); MEAN PLATELET VOLUME 8.7 fl (7.4-10.4); MONOCYTES % 9.5 % (2.0-8.0); NEUTROPHILS % 65.6 % (40.0-76.0); PLATELET 193 x1000/uL (130-400); RED BLOOD CELL COUNT 4.34 mill/uL (4.7-6.1); RED CELL DISTRIBUTION WIDTH 20.7 % (11.6-14.6)
[2022-03-08 20:18] LABS: CHLORIDE 109 mEq/L (98-107)
[2022-03-08 22:00] VITALS: BP 108/70
[2022-03-08] MEDS ORDERED: AZIT250T12 MT (22:05)
[2022-03-08] MEDS ORDERED: AMOX1TAB16 MT (22:05)
[2022-03-08] MEDS ORDERED: AMOXICILLIN/POTASSIUM CLAVULANATE 875/125MG TAB PO ONE (22:15)
== END 2022-03-08 22:40 | disposition home or self-care (01) ==
LOC: ER 18:52
DX: J18.9 Pneumonia, unspecified organism (principal); R94.39 Abnormal result of other cardiovascular function study; E11.9 Type 2 diabetes mellitus without complications; I25.10 Atherosclerotic heart disease of native coronary artery without angina pectoris; I71.4 Abdominal aortic aneurysm, without rupture; I25.2 Old myocardial infarction; J44.9 Chronic obstructive pulmonary disease, unspecified; I11.0 Hypertensive heart disease with heart failure; I50.9 Heart failure, unspecified; F17.210 Nicotine dependence, cigarettes, uncomplicated; Z20.822 Contact with and (suspected) exposure to COVID-19; Z95.1 Presence of aortocoronary bypass graft; Z99.81 Dependence on supplemental oxygen; Z79.01 Long term (current) use of anticoagulants; Z79.82 Long term (current) use of aspirin; Z88.8 Allergy status to other drugs, medicaments and biological substances
CPT/HCPCS: 36415; 71046; 80053; 83880; 84484; 85025; 87426; 87804; 93005; 99285; C9803

== ENCOUNTER 2023-04-26 10:27 | Emergency (ER) | payer BC, MEDICAID ==
[~2023-04-26] VITALS: Ht 167.6 cm; Wt 73.0 kg
[~2023-04-26 10:27] MED LIST changes: -AZIT500T8 MT; +FLUT1DIS3 INH; +FURO-151 MT; +LOSA50TA41 PO; +P20 PO; +POTA-204 PO; +SPIR25TA PO
[2023-04-26] MEDS ORDERED: METHYLPREDNISOLONE SOD SUCC 125MG/2ML (ACT-O-VIAL) IV STA (10:39)
[2023-04-26] MEDS ORDERED: IPRATROPIUM/ALBUTEROL 0.5-3(2.5)MG/3ML NEB HHN NR (11:00)
[2023-04-26 11:46] LABS: BASOPHILS % 0.6 % (0.0-2.0); EOSINOPHILS % 0.2 % (0.0-5.0); HEMATOCRIT. 55.8 % (42.0-52.0); HEMOGLOBIN. 17.6 g/dL (14.0-18.0); LYMPHOCYTES % 13.4 % (20.0-50.0); MEAN CORPUSCULAR HEMOGLOBIN 26.8 pg (28.0-32.0); MEAN CORPUSCULAR HGB CONC 31.6 g/dL (31.0-37.0); MEAN CORPUSCULAR VOLUME 84.9 fL (80.0-94.0); MEAN PLATELET VOLUME 9.1 fl (7.4-10.4); MONOCYTES % 6.6 % (2.0-8.0); NEUTROPHILS % 79.2 % (40.0-76.0); PLATELET 215 x1000/uL (130-400); RED BLOOD CELL COUNT 6.57 mill/uL (4.7-6.1); RED CELL DISTRIBUTION WIDTH 18.5 % (11.6-14.6); WHITE BLOOD COUNT 10.4 x1000/uL (4.5-11.0)
[2023-04-26 12:05] LABS: ALANINE AMINOTRANSFERASE 29 IU/L (10-49); ALBUMIN 3.9 g/dL (3.2-4.8); ASPARTATE AMINOTRANSFERASE 29 IU/L (<34); CALCIUM 9.7 mg/dL (8.7-10.4); CARBON DIOXIDE 22 mEq/L (21-32); CHLORIDE 103 mEq/L (98-107); CREATININE 1.1 mg/dL (0.6-1.3); POTASSIUM 3.9 mEq/L (3.5-5.1); PROTEIN TOTAL 6.3 g/dL (6.0-8.3); SODIUM 140 mEq/L (136-145); UREA NITROGEN BLOOD 11 mg/dL (9-23)
[2023-04-26 13:34] VITALS: PULSE 84; RESP 21; O2SAT 95
[2023-04-26 14:14] LABS: TROPONIN I HIGH SENSITIVITY 96 ng/L (3.0-53)
[2023-04-26 14:37] LABS: GLUCOSE 60 mg/dL (70-105)
[2023-04-26 15:30] LABS: *AMPHETAMINES SCREEN URINE Neg (NEGATIVE); *BARBITURATES SCREEN URINE Neg (NEGATIVE); *BENZODIAZEPINES SCREEN URINE Neg (NEGATIVE); *COCAINE SCREEN URINE Pos (NEGATIVE); CANNABINOID URINE SCREEN Neg (NEGATIVE); ECSTASY MDMA SCREEN URINE Neg (NEGATIVE); METHADONE URINE SCREEN Neg (NEGATIVE); OPIATES URINE SCREEN Neg (NEGATIVE); PHENCYCLIDINE URINE SCREEN Neg (NEGATIVE)
[2023-04-26 17:10] LABS: TROPONIN I HIGH SENSITIVITY 85 ng/L (3.0-53)
[2023-04-26 18:55] VITALS: BP 155/91; PULSE 69; RESP 24; TEMP 98.3
== END 2023-04-26 19:03 | disposition short-term general hospital (02) ==
LOC: ER 10:27
DX: J44.1 Chronic obstructive pulmonary disease with (acute) exacerbation (principal); E11.9 Type 2 diabetes mellitus without complications; I11.0 Hypertensive heart disease with heart failure; I50.9 Heart failure, unspecified; Z88.8 Allergy status to other drugs, medicaments and biological substances; Z79.899 Other long term (current) drug therapy
CPT/HCPCS: 99285; 96374; 71045; 80053; 80305; 83880; 85025; 85730; 84484; 36415; 94640; 93005; J2930

== ENCOUNTER 2023-05-03 00:40 | Inpatient (IN) | payer BC, MEDICAID, MEDICARE ==
[~2023-05-03] VITALS: Ht 170.2 cm; Wt 59.4 kg
[2023-05-03] MEDS ORDERED: ONDANSETRON HCL 4MG/2ML INJ IV STA (01:15)
[2023-05-03] MEDS ORDERED: IPRATROPIUM BROMIDE (0.02%) 0.5MG/2.5ML NEB HHN STA (01:15)
[2023-05-03] MEDS ORDERED: METHYLPREDNISOLONE SOD SUCC 125MG/2ML (ACT-O-VIAL) IV STA (01:15)
[2023-05-03] MEDS ORDERED: MAGNESIUM 2 G PREMIX 50 ML IV ONE (01:15)
[2023-05-03] MEDS: ALBUTEROL (0.083%) 2.5MG/3ML NEB HHN SCH ×3 (01:27→01:30)
[2023-05-03 01:30] VITALS: PULSE 109; RESP 22; O2SAT 94
[2023-05-03 01:40] LABS: BG BASE EXCESS -2.7 mmol/L (-2.0-2.0); BG CARBOXYHEMOGLOBIN 2.3 % (0.5-1.5); BG DEOXYHEMOGLOBIN 10.6 % (0.0-5.0); BG FRACTION INSPIRED OXYGEN 32; BG HCO3 ACT 20.3 mmol/L (22.0-26.0); BG METHEMOGLOBIN 0.4 % (0.0-1.5); BG OXYGEN SATURATION 89.1 % (92.0-98.5); BG OXYHEMOGLOBIN 86.7 % (94.0-97.0); BG PCO2 31.4 mmHg (35.0-45.0); BG PH 7.429 (7.350-7.450); BG PO2 62.2 mmHg (75.0-100.0); BG SAMPLE SITE RIGHT RADIAL; BG TOTAL HEMOGLOBIN 16.7 g/dL (12.0-18.0); BG VENT MODE NASAL CANNULA
[2023-05-03 02:03] LABS: BASOPHILS % 1.1 % (0.0-2.0); EOSINOPHILS % 0.9 % (0.0-5.0); HEMATOCRIT. 53.4 % (42.0-52.0); LYMPHOCYTES % 17.5 % (20.0-50.0); MEAN CORPUSCULAR HEMOGLOBIN 26.7 pg (28.0-32.0); MEAN CORPUSCULAR HGB CONC 31.8 g/dL (31.0-37.0); MEAN CORPUSCULAR VOLUME 83.9 fL (80.0-94.0); MEAN PLATELET VOLUME 9.4 fl (7.4-10.4); MONOCYTES % 6.5 % (2.0-8.0); PLATELET 189 x1000/uL (130-400); RED BLOOD CELL COUNT 6.36 mill/uL (4.7-6.1); RED CELL DISTRIBUTION WIDTH 18.2 % (11.6-14.6); WHITE BLOOD COUNT 11.6 x1000/uL (4.5-11.0)
[2023-05-03 04:15] LABS: LACTIC ACID 3.3 mmol/L (0.4-2.0)
[2023-05-03 04:18] LABS: CARBON DIOXIDE 25 mEq/L (21-32); CHLORIDE 106 mEq/L (98-107); GLUCOSE 94 mg/dL (70-105); POTASSIUM 4.8 mEq/L (3.5-5.1); SODIUM 140 mEq/L (136-145); UREA NITROGEN BLOOD 19 mg/dL (9-23)
[2023-05-03 04:19] LABS: ALANINE AMINOTRANSFERASE 30 IU/L (10-49); ALBUMIN 4.3 g/dL (3.2-4.8); ASPARTATE AMINOTRANSFERASE 31 IU/L (<34); CREATININE 1.3 mg/dL (0.6-1.3); PROTEIN TOTAL 7.1 g/dL (6.0-8.3)
[2023-05-03 04:22] LABS: TROPONIN I HIGH SENSITIVITY 176 ng/L (3.0-53)
[2023-05-03] MEDS ORDERED: IPRATROPIUM/ALBUTEROL 0.5-3(2.5)MG/3ML NEB HHN PRN (08:15)
[2023-05-03] MEDS ORDERED: MAGNESIUM/ALUMINUM HYDROXIDE/SIMETHICONE 30ML UDC PO PRN (08:15)
[2023-05-03] MEDS ORDERED: ONDANSETRON HCL 4MG/2ML INJ IV PRN (08:15)
[2023-05-03] MEDS ORDERED: CLONIDINE 0.1MG TABLET PO PRN (08:15)
[2023-05-03] MEDS ORDERED: DOCUSATE SODIUM 100MG CAPSULE PO PRN (08:15)
[2023-05-03] MEDS ORDERED: GUAIFENESIN 200MG/10ML SUGAR FREE UDC PO PRN (08:15)
[2023-05-03 08:50] VITALS: BP 172/114; PULSE 105; RESP 20; TEMP 97.4
[2023-05-03] MEDS ORDERED: AMLODIPINE 5MG TABLET PO SCH (09:00)
[2023-05-03] MEDS ORDERED: PANTOPRAZOLE SODIUM 40 MG/VIAL IV SCH (09:00)
[2023-05-03 09:16] VITALS: BP 172/118; PULSE 103; RESP 20; TEMP 97.4
[2023-05-03] MEDS: ASPIRIN 81MG TABLET PO SCH (09:34)
[2023-05-03] MEDS: CLOPIDOGREL 75MG TABLET PO SCH (09:34)
[2023-05-03] MEDS: AMLODIPINE 5MG TABLET PO SCH (09:34)
[2023-05-03] MEDS: SPIRONOLACTONE 25MG TABLET PO SCH (09:34)
[2023-05-03] MEDS: LOSARTAN 50 MG TABLET PO SCH ×2 (09:35→16:54)
[2023-05-03] MEDS: POTASSIUM CHLORIDE 20MEQ TABLET SR PO SCH (09:35)
[2023-05-03] MEDS: ENOXAPARIN 40MG/0.4ML SYR SUBCUT SCH (09:36)
[2023-05-03] MEDS: FUROSEMIDE 40MG/4ML VIAL IV SCH ×2 (09:48→16:54)
[2023-05-03] MEDS: PIPERACILLIN/TAZOBACTAM 3.375 G in DEXTROSE 5% WATER 50 ML IV SCH (10:50)
[2023-05-03 11:09] LABS: CLARITY URINE CLEAR (CLEAR); COLOR URINE YELLOW (YELLOW); GLUCOSE URINE 3+ (NEGATIVE); KETONES URINE NEGATIVE (NEGATIVE); LEUKOCYTE ESTERASE URINE NEGATIVE (NEGATIVE); NITRITE URINE NEGATIVE (NEGATIVE); OCCULT BLOOD URINE 2+ (NEGATIVE); PH URINE 5.5 (4.5-8.0); PROTEIN URINE 3+ (NEGATIVE); SPECIFIC GRAVITY URINE 1.033 (1.005-1.030)
[2023-05-03 11:12] LABS: BACTERIA URINE NONE SEEN; RBC URINE 25-50 /hpf (0-2); WBC URINE NONE SEEN /hpf (0-2); YEAST URINE NONE SEEN
[2023-05-03 11:22] LABS: SQUAMOUS EPITHELIAL CELL URINE 1+ /lpf (RARE/1+)
[2023-05-03 11:48] VITALS: BP 168/118; PULSE 100; RESP 20; TEMP 97
[2023-05-03 15:18] LABS: *AMPHETAMINES SCREEN URINE NEGATIVE (NEGATIVE); *BARBITURATES SCREEN URINE NEGATIVE (NEGATIVE); *BENZODIAZEPINES SCREEN URINE NEGATIVE (NEGATIVE); *COCAINE SCREEN URINE PRESUMPTIVE POSITIVE (NEGATIVE); CANNABINOID URINE SCREEN NEGATIVE (NEGATIVE); ECSTASY MDMA SCREEN URINE NEGATIVE (NEGATIVE); METHADONE URINE SCREEN Neg (NEGATIVE); OPIATES URINE SCREEN NEGATIVE (NEGATIVE); PHENCYCLIDINE URINE SCREEN NEGATIVE (NEGATIVE)
[2023-05-03 16:00] VITALS: BP 145/107; PULSE 61; RESP 18; TEMP 97.1
[2023-05-03] MEDS: ACETAMINOPHEN 325MG TABLET PO PRN ×2 (16:56→21:08)
[2023-05-03 18:57] LABS: CREATINE KINASE 78 IU/L (46-171)
[2023-05-03 19:04] LABS: TROPONIN I HIGH SENSITIVITY 190 ng/L (3.0-53)
[2023-05-03 20:00] VITALS: BP 140/102; PULSE 87; RESP 19; TEMP 97.3
[2023-05-03] MEDS: ATORVASTATIN CALCIUM 40MG TABLET PO SCH (21:08)
[2023-05-03] MEDS: FAMOTIDINE 20MG TABLET PO SCH (21:08)
[2023-05-03 23:38] LABS: CREATINE KINASE 72 IU/L (46-171)
[2023-05-04] VITALS: BP 136/103; PULSE 96; RESP 18; TEMP 97.8
[2023-05-04] MEDS: PIPERACILLIN/TAZOBACTAM 3.375 G in DEXTROSE 5% WATER 50 ML IV SCH ×4 (00:08→21:45)
[2023-05-04 00:48] LABS: TROPONIN I HIGH SENSITIVITY 191 ng/L (3.0-53)
[2023-05-04 04:30] VITALS: BP 162/118; PULSE 87; RESP 19; TEMP 98.1
[2023-05-04] MEDS: FUROSEMIDE 40MG/4ML VIAL IV SCH ×2 (05:44→17:31)
[2023-05-04] MEDS: ASPIRIN 81MG TABLET PO SCH (09:41)
[2023-05-04] MEDS: LOSARTAN 50 MG TABLET PO SCH ×2 (09:41→17:31)
[2023-05-04] MEDS: SPIRONOLACTONE 25MG TABLET PO SCH (09:41)
[2023-05-04] MEDS: CLOPIDOGREL 75MG TABLET PO SCH (09:42)
[2023-05-04] MEDS: POTASSIUM CHLORIDE 20MEQ TABLET SR PO SCH (09:42)
[2023-05-04] MEDS: ENOXAPARIN 40MG/0.4ML SYR SUBCUT SCH (09:43)
[2023-05-04] MEDS: AMLODIPINE 5MG TABLET PO SCH (09:47)
[2023-05-04 12:00] VITALS: BP 141/89; PULSE 67; RESP 20; TEMP 97
[2023-05-04 16:00] VITALS: BP 116/85; PULSE 71; RESP 18; TEMP 97
[2023-05-04 17:05] LABS: BASOPHILS % 0.2 % (0.0-2.0); EOSINOPHILS % 0.3 % (0.0-5.0); HEMATOCRIT. 43.3 % (42.0-52.0); HEMOGLOBIN. 13.7 g/dL (14.0-18.0); MEAN CORPUSCULAR HEMOGLOBIN 26.8 pg (28.0-32.0); MEAN CORPUSCULAR HGB CONC 31.7 g/dL (31.0-37.0); MEAN CORPUSCULAR VOLUME 84.5 fL (80.0-94.0); MEAN PLATELET VOLUME 9.8 fl (7.4-10.4); MONOCYTES % 8.6 % (2.0-8.0); NEUTROPHILS % 77.9 % (40.0-76.0); PLATELET 202 x1000/uL (130-400); RED BLOOD CELL COUNT 5.13 mill/uL (4.7-6.1); RED CELL DISTRIBUTION WIDTH 18.1 % (11.6-14.6); WHITE BLOOD COUNT 15.3 x1000/uL (4.5-11.0)
[2023-05-04] MEDS: ACETAMINOPHEN 325MG TABLET PO PRN (17:23)
[2023-05-04 17:47] LABS: ALANINE AMINOTRANSFERASE 27 IU/L (10-49); ALBUMIN 3.5 g/dL (3.2-4.8); ASPARTATE AMINOTRANSFERASE 24 IU/L (<34); BILIRUBIN TOTAL 0.8 mg/dL (0.1-1.0); CALCIUM 9.5 mg/dL (8.7-10.4); CARBON DIOXIDE 25 mEq/L (21-32); CHLORIDE 105 mEq/L (98-107); CHOLESTEROL 120 mg/dL (<200); CREATINE KINASE 53 IU/L (46-171); CREATININE 1.3 mg/dL (0.6-1.3); GLUCOSE 94 mg/dL (70-105); HDL CHOLESTEROL 41 mg/dL (>55); LDL CHOLESTEROL 88 mg/dL (5-100); POTASSIUM 4.8 mEq/L (3.5-5.1); PROTEIN TOTAL 5.8 g/dL (6.0-8.3); SODIUM 138 mEq/L (136-145); T4 FREE 1.26 ng/dL (0.89-1.76); THYROID STIMULATING HORMONE 2.03 uIU/mL (0.55-4.78); TRIGLYCERIDE 132 mg/dL (0-150); UREA NITROGEN BLOOD 28 mg/dL (9-23)
[2023-05-04 19:23] LABS: TROPONIN I HIGH SENSITIVITY 218 ng/L (3.0-53)
[2023-05-04 20:00] VITALS: BP 129/69; PULSE 85; RESP 20; TEMP 98.6
[2023-05-04] MEDS: FAMOTIDINE 20MG TABLET PO SCH (21:53)
[2023-05-04] MEDS: ATORVASTATIN CALCIUM 40MG TABLET PO SCH (21:53)
[2023-05-05] VITALS: BP 110/62; PULSE 72; RESP 17; TEMP 98.2
[2023-05-05 01:51] LABS: TROPONIN I HIGH SENSITIVITY 201 ng/L (3.0-53)
[2023-05-05 04:00] VITALS: BP 135/96; PULSE 99; RESP 18; TEMP 97.8
[2023-05-05] MEDS: PIPERACILLIN/TAZOBACTAM 3.375 G in DEXTROSE 5% WATER 50 ML IV SCH ×3 (05:34→21:09)
[2023-05-05] MEDS: FUROSEMIDE 40MG/4ML VIAL IV SCH ×2 (06:47→17:03)
[2023-05-05 08:00] VITALS: BP 137/92; PULSE 71; RESP 18; TEMP 97.1
[2023-05-05] MEDS: ASPIRIN 81MG TABLET PO SCH (08:45)
[2023-05-05] MEDS: POTASSIUM CHLORIDE 20MEQ TABLET SR PO SCH (08:46)
[2023-05-05] MEDS: CLOPIDOGREL 75MG TABLET PO SCH (08:46)
[2023-05-05] MEDS: SPIRONOLACTONE 25MG TABLET PO SCH (08:46)
[2023-05-05] MEDS: AMLODIPINE 10MG TABLET PO SCH (08:46)
[2023-05-05] MEDS: LOSARTAN 50 MG TABLET PO SCH ×2 (08:46→17:00)
[2023-05-05] MEDS: ENOXAPARIN 40MG/0.4ML SYR SUBCUT SCH (08:46)
[2023-05-05 10:22] LABS: HEMATOCRIT 47.3 % (42.0-52.0); MEAN CORPUSCULAR HEMOGLOBIN 27.2 pg (28.0-32.0); MEAN CORPUSCULAR HGB CONC 31.8 g/dL (31.0-37.0); MEAN CORPUSCULAR VOLUME 85.4 fL (80.0-94.0); PLATELET 219 x1000/uL (130-400); RED BLOOD CELL COUNT 5.53 mill/uL (4.7-6.1); RED CELL DISTRIBUTION WIDTH 18.6 % (11.6-14.6); WHITE BLOOD COUNT 11.4 x1000/uL (4.5-11.0)
[2023-05-05 12:00] VITALS: BP 113/74; PULSE 54; RESP 18; TEMP 97.4
[2023-05-05 16:00] VITALS: BP 101/51; PULSE 51; RESP 18; TEMP 97.5
[2023-05-05 20:00] VITALS: BP 107/67; PULSE 64; RESP 20; TEMP 98.1
[2023-05-05] MEDS: ATORVASTATIN CALCIUM 40MG TABLET PO SCH (21:09)
[2023-05-05] MEDS: FAMOTIDINE 20MG TABLET PO SCH (21:10)
[2023-05-06] VITALS: BP 110/60; PULSE 68; RESP 19; TEMP 98.5
[2023-05-06 04:08] VITALS: BP 119/58; PULSE 70; RESP 20; TEMP 98.4
[2023-05-06] MEDS: PIPERACILLIN/TAZOBACTAM 3.375 G in DEXTROSE 5% WATER 50 ML IV SCH (05:44)
[2023-05-06] MEDS: FUROSEMIDE 40MG/4ML VIAL IV SCH (06:19)
[2023-05-06 08:26] VITALS: BP 106/61; PULSE 66; RESP 18; TEMP 98
[2023-05-06] MEDS ORDERED: FAMO-135 MT (08:31)
[2023-05-06] MEDS ORDERED: ALD50 MT (08:31)
[2023-05-06] MEDS ORDERED: LOSA50TA41 PO (08:31)
[2023-05-06] MEDS ORDERED: ATOR40TA70 MT (08:31)
[2023-05-06] MEDS ORDERED: FLUT1DIS3 INH (08:31)
[2023-05-06] MEDS ORDERED: ASPI-1497 PO (08:31)
[2023-05-06] MEDS ORDERED: ALBU6.7H15 INH (08:31)
[2023-05-06] MEDS ORDERED: CLOP-31 MT (08:31)
[2023-05-06] MEDS ORDERED: FURO-151 MT (08:31)
[2023-05-06] MEDS ORDERED: AMLO5TAB88 MT (08:31)
[2023-05-06] MEDS ORDERED: COR6 PO (08:31)
[2023-05-06] MEDS: SPIRONOLACTONE 25MG TABLET PO SCH (09:00)
[2023-05-06] MEDS: AMLODIPINE 10MG TABLET PO SCH (09:00)
[2023-05-06] MEDS: LOSARTAN 50 MG TABLET PO SCH (09:00)
[2023-05-06] MEDS: ASPIRIN 81MG TABLET PO SCH (09:27)
[2023-05-06] MEDS: ENOXAPARIN 40MG/0.4ML SYR SUBCUT SCH (09:27)
[2023-05-06] MEDS: POTASSIUM CHLORIDE 20MEQ TABLET SR PO SCH (09:27)
[2023-05-06] MEDS: CLOPIDOGREL 75MG TABLET PO SCH (09:28)
[2023-05-06 10:35] VITALS: BP 106/61; PULSE 66; TEMP 98
[2023-05-06 12:42] VITALS: BP 112/84; PULSE 100; RESP 18; TEMP 97.7
== END 2023-05-06 14:05 | disposition home or self-care (01) | DRG 280 ==
LOC: ER 00:40 → EDBEDREQSVC 03:40 → EDBEDREQ 03:40 → 7WST 05:06 → EDBEDREQ 05:21 → EDBEDREQTM 05:21
PROVIDERS: ADMIT Internal Medicine; ATTEND Internal Medicine
DX: I11.0 Hypertensive heart disease with heart failure (principal); I21.A1 Myocardial infarction type 2; I50.33 Acute on chronic diastolic (congestive) heart failure; J96.01 Acute respiratory failure with hypoxia; E87.20 Acidosis, unspecified; I16.1 Hypertensive emergency; I48.92 Unspecified atrial flutter; I42.7 Cardiomyopathy due to drug and external agent; I25.10 Atherosclerotic heart disease of native coronary artery without angina pectoris; F17.210 Nicotine dependence, cigarettes, uncomplicated; D72.829 Elevated white blood cell count, unspecified; F14.90 Cocaine use, unspecified, uncomplicated; E11.9 Type 2 diabetes mellitus without complications; T40.5X5A Adverse effect of cocaine, initial encounter; Z79.899 Other long term (current) drug therapy; Z95.5 Presence of coronary angioplasty implant and graft; Z79.84 Long term (current) use of oral hypoglycemic drugs; Z79.51 Long term (current) use of inhaled steroids; I25.2 Old myocardial infarction; Z99.81 Dependence on supplemental oxygen; Y92.89 Other specified places as the place of occurrence of the external cause
CPT/HCPCS: 36415; 36600; 71045; 80053; 80061; 80305; 81003; 82375; 82550; 82805; 83605; 83880; 84145; 84439; 84443; 84484; 85025; 85027; 93005; 94640; 99285; J1650; J1940; J2405; J2543; J2930; J3475; J7060

== ENCOUNTER 2023-05-16 16:35 | Emergency (ER) | payer BC, MEDICAID ==
[~2023-05-16] VITALS: Ht 175.3 cm; Wt 75.0 kg
[~2023-05-16 16:35] MED LIST changes: -ALBU05 NEB; +ALBU6.7H15 INH; +ALD50 MT; +CLOP-31 MT; -CLOP75TA15 PO; +FAMO-135 MT; -FURO40TA5 MT; -ISOS5TAB4 MT; -LOSA50TA41 MT; -P20 PO; -POTA-204 PO; -SPIR25TA PO
[2023-05-16 16:48] VITALS: O2SAT 99
[2023-05-16] MEDS ORDERED: ASPIRIN 325MG TABLET PO ONE (17:15)
[2023-05-16 17:41] LABS: BASOPHILS % 0.9 % (0.0-2.0); EOSINOPHILS % 0.7 % (0.0-5.0); HEMATOCRIT. 48.2 % (42.0-52.0); HEMOGLOBIN. 15.7 g/dL (14.0-18.0); LYMPHOCYTES % 13.1 % (20.0-50.0); MEAN CORPUSCULAR HEMOGLOBIN 27.2 pg (28.0-32.0); MEAN CORPUSCULAR HGB CONC 32.7 g/dL (31.0-37.0); MEAN CORPUSCULAR VOLUME 83.1 fL (80.0-94.0); MEAN PLATELET VOLUME 9.1 fl (7.4-10.4); NEUTROPHILS % 77.3 % (40.0-76.0); PLATELET 261 x1000/uL (130-400); RED BLOOD CELL COUNT 5.79 mill/uL (4.7-6.1); RED CELL DISTRIBUTION WIDTH 18.9 % (11.6-14.6); WHITE BLOOD COUNT 12.3 x1000/uL (4.5-11.0)
[2023-05-16 17:51] LABS: ALANINE AMINOTRANSFERASE 14 IU/L (10-49); ALBUMIN 3.4 g/dL (3.2-4.8); ASPARTATE AMINOTRANSFERASE 18 IU/L (<34); BILIRUBIN TOTAL 2.7 mg/dL (0.1-1.0); CARBON DIOXIDE 21 mEq/L (21-32); CHLORIDE 105 mEq/L (98-107); GLUCOSE 63 mg/dL (70-105); SODIUM 138 mEq/L (136-145); UREA NITROGEN BLOOD 12 mg/dL (9-23)
[2023-05-16 17:53] LABS: TROPONIN I HIGH SENSITIVITY 92 ng/L (3.0-53)
[2023-05-16] MEDS ORDERED: FUROSEMIDE 40MG/4ML VIAL IVP ONE (19:15)
[2023-05-16 20:43] LABS: TROPONIN I HIGH SENSITIVITY 97 ng/L (3.0-53)
[2023-05-17 05:47] VITALS: BP 127/88; PULSE 105; RESP 18; TEMP 98.8
== END 2023-05-17 06:13 | disposition short-term general hospital (02) ==
LOC: ER 16:35 → CANBEDREQ 19:05 → ER 05-17 06:13
DX: R07.89 Other chest pain (principal); I11.0 Hypertensive heart disease with heart failure; I50.9 Heart failure, unspecified; J44.9 Chronic obstructive pulmonary disease, unspecified; E11.9 Type 2 diabetes mellitus without complications; I25.2 Old myocardial infarction
CPT/HCPCS: 99285; 96374; 71045; 80053; 85025; 84484; 36415; 93005; J1940